=== PATIENT | female | born 1955 | race Caucasian/White ===

== ENCOUNTER 2021-08-27 00:33 | Emergency (ER) | payer OTHER ==
--- NOTE | 2021-08-27 01:09 | ED Physician Documentation ---
History of Present Illness - Stated complaint Stated Complaint: THROAT TIGHTNESS/LIGHTHEADED - Chief complaint Chief Complaint: Heent - History obtained from History obtained from: Patient - Additonal information Additional information: 65-year-old woman presents with throat tightness and dizziness that has been ongoing for several months. She already saw a GI and is slated to see an ENT but was feeling overwhelmed tonight and decided to come to the emergency department. Subjective shortness of breath when swallowing liquids and solids. Patient endorses decreased p.o. intake. Review of Systems Throat: reports: Sore throat Cardiac: denies: Chest pain / pressure Respiratory: reports: Dyspnea. denies: Cough GI: denies: Vomiting PD PAST MEDICAL HISTORY - Past Medical History Past Medical History: Yes GI: GERD, Other HEENT: Glaucoma Musculoskeletal: Osteoarthritis, Other Derm: Other Other Past Medical History: chronic hives. tendonitis - Past Surgical History Past Surgical History: Yes General: EGD HEENT: Detached retina repair - Present Medications Home Medications: Ambulatory Orders Medication Instructions Recorded Confirmed Loratadine [Claritin] 10 mg PO DAILY 08/27/21 08/27/21 Spironolactone [Aldactone] 50 mg PO BID 08/27/21 08/27/21 hydrOXYzine HCL [Hydroxyzine HCl] 25 mg PO Q8H PRN #30 tablet 08/27/21 hydrOXYzine HCL [Hydroxyzine HCl] 50 mg PO DAILY 08/27/21 08/27/21 - Allergies Allergies/Adverse Reactions: Allergies Allergy/AdvReac Type Severity Reaction Status Date / Time Sulfa (Sulfonamide Allergy Unknown Verified 08/27/21 00:45 Antibiotics) - Social History Does the pt smoke?: No Smoking Status: Never smoker Does the pt drink ETOH?: No Does the pt have substance abuse?: No - Immunizations Immunizations are current?: Yes PD ED PE NORMAL - Vitals Vital signs reviewed: Yes - General General: Alert and oriented X 3, No acute distress, Well developed/nourished - HEENT HEENT: Atraumatic, PERRL, EOMI - Neck Neck: Supple, no meningeal sign - Cardiac Cardiac: RRR - Respiratory Respiratory: No respiratory distress, Clear bilaterally Results - Vitals Vitals: Vital Signs - 24 hr 08/27/21 08/27/21 08/27/21 00:45 00:49 02:44 Temperature 36.5 C 36.5 C 36.6 C Heart Rate 93 93 81 Respiratory 16 16 16 Rate Blood Pressure 154/90 H 154/90 H 126/78 O2 Saturation 100 100 99 Oxygen O2 Source Room air - EKG (time done) 0045 Rate: Rate (enter#) (94) Rhythm: NSR [place]: Normal, Other (borderline LAD) Intervals: Normal IN QRS: Normal Ischemia: Normal ST segments PD MEDICAL DECISION MAKING - ED course ED course: 65-year-old woman presents with throat soreness and odynophagia to liquids and solids. Also endorses severe anxiety related to her symptoms. Pain and antianxiety medication provided and return precautions given. Patient asked me to try to move up her ENT appointment and I explained that I am not able to do that but we recommend that she called to see if they have a cancellation. Strict return precautions given. Patient will follow up with her primary doctor. Departure - Departure Disposition: 01 Home, Self Care Clinical Impression: Throat tightness, Odynophagia Condition: Good Instructions: Sore Throat Prescriptions: hydrOXYzine HCL [Hydroxyzine HCl] 25 mg PO Q8H PRN #30 tablet PRN Reason: Anxiety Comments: You were seen in the emergency department for odynophagia (pain with swallowing). Please follow up with ENT and return to the emergency department for any new or worsening symptoms or other concerns. [email or web address], [place] [address] ~27.5 mi Discharge Date/Time: 08/27/21 03:01
[2021-08-27] MEDS ORDERED: oxyCODONE/ACET 5/325 Prepack 4 PO STA (02:23)
[2021-08-27] MEDS ORDERED: hydrOXYzine PAMOATE 25 MG CAPSULE PO STA (02:24)
[2021-08-27] MEDS ORDERED: ONDANSETRON ODT 4 MG Prepack 2 TL PRN (02:35)
[2021-08-27 02:45] VITALS: BP 126/78
== END 2021-08-27 03:01 | disposition home or self-care (01) ==
LOC: ED 00:33
DX: R09.89 Other specified symptoms and signs involving the circulatory and respiratory systems (principal); R13.10 Dysphagia, unspecified; F41.9 Anxiety disorder, unspecified; Z20.822 Contact with and (suspected) exposure to COVID-19
CPT/HCPCS: 87635; 93005; 99283; 99284; A9270

== ENCOUNTER 2021-10-01 18:13 | Emergency (ER) | payer MEDICARE, OTHER ==
[2021-10-01 18:30] VITALS: BP 127/86
[2021-10-01 18:49] LABS: RAPID STREP SCREEN Negative (Negative)
--- NOTE | 2021-10-01 19:13 | ED Physician Documentation ---
PD HPI HEENT - Stated complaint Stated Complaint: NECK PAIN, CHILLS - Chief complaint Chief Complaint: Heent - History obtained from History obtained from: Patient - Additional information Additional information: 65-year-old woman has had trouble with neck pain for the last 5 months. Initially it started feeling like a lump in the anterior neck especially after she ate or drank or swallowed. Over the last few days now has a burning pain in the mouth especially after she eats. She had an upper endoscopy and was diagnosed with a possible hiatal hernia, but no reflux. Subsequently had ENT evaluation with nasolaryngoscopy that was fairly normal per her report and modified barium swallow that was initially negative but formal read pending. She has been on Percocet, but it is not very helpful. She has also tried gabapentin without relief. Review of Systems Constitutional: reports: Weight Loss. 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 HEENT: Glaucoma Psych: None Musculoskeletal: Osteoarthritis, Other Derm: Other - Past Surgical History Past Surgical History: Yes General: EGD HEENT: Detached retina repair - Present Medications Home Medications: Ambulatory Orders Medication Instructions Recorded Confirmed Loratadine [Claritin] 10 mg PO DAILY 08/27/21 08/27/21 Spironolactone [Aldactone] 50 mg PO BID 08/27/21 08/27/21 hydrOXYzine HCL [Hydroxyzine HCl] 25 mg PO Q8H PRN #30 tablet 08/27/21 hydrOXYzine HCL [Hydroxyzine HCl] 50 mg PO DAILY 08/27/21 08/27/21 HYDROcod/ACETAM 5/325 [[place]after 5/325] 1 - 2 tab PO Q6H PRN #15 tablet 10/01/21 - Allergies Allergies/Adverse Reactions: Allergies Allergy/AdvReac Type Severity Reaction Status Date / Time Sulfa (Sulfonamide Allergy Unknown Verified 10/01/21 18:24 Antibiotics) - Social History Does the pt smoke?: No Smoking Status: Never smoker Does the pt drink ETOH?: No Does the pt have substance abuse?: No - Immunizations Immunizations are current?: Yes - POLST Patient has POLST: No PD ED PE NORMAL - Vitals Vital signs reviewed: Yes - General General: Alert and oriented X 3, No acute distress - HEENT HEENT: PERRL, EOMI, Pharynx benign - Neck Neck: Supple, no meningeal sign, No bony TTP, No adenopathy, Thyroid normal - Neuro Neuro: Alert and oriented X 3, Normal speech - Psych Psych: Normal mood, Normal affect Results - Vitals Vitals: Vital Signs - 24 hr 10/01/21 18:24 Temperature 36.5 C Heart Rate 89 Respiratory 16 Rate Blood Pressure 127/86 H O2 Saturation 100 Oxygen O2 Source Room air - Labs Labs: Laboratory Tests 10/01/21 18:30 Group A Strep Rapid Negative PD MEDICAL DECISION MAKING - ED course ED course: 65-year-old woman with neck pain of unclear etiology status post thorough work- up. Offered CT scanning tonight for further evaluation which she declined. She did feel better after Mylanta and hydrocodone. Departure - Departure Disposition: 01 Home, Self Care Clinical Impression: Odynophagia, Throat tightness Condition: Good Record reviewed to determine appropriate education?: Yes Instructions: ED Chronic Pain Management Prescriptions: HYDROcod/ACETAM 5/325 [Shafter 5/325] 1 - 2 tab PO Q6H PRN #15 tablet PRN Reason: Pain Comments: Prescription sent electronically to [facility] in [place]. Return for new or worsening symptoms. Follow-up with your primary care physician, next available appointment to further evaluate. I am prescribing a short course of narcotic pain medication for you. These are potentially dangerous and addictive medications that should be used carefully. These medications may constipate you. Take an gcnx-xhs-yydqtys stool softener (docusate) twice daily with plenty of water while taking these medications. If you go 24 hours without a bowel movement, take [id number] miralax, per package instructions. Do not drink or drive while taking these medications. If you received narcotic or sedating medications while in the emergency department, do not drive for 24 hours. Store this medication in a safe, secure place and out of reach of children. It is a violation of federal law to give or sell this medication to another person or to use in a manner other than prescribed. The ED will not refill narcotic prescriptions, including prescriptions lost or stolen. To dispose of unwanted medications: 1. [facility] at [address] in [place] has a medication drop box. They accept prescription medications (in pill form) Thursday through Thursday 9:00 a.m. to 5:00 p.m. 2. The [facility] [employer] accepts prescription medications (in pill form only) for disposal year round. Call for more information. 3. Contact the [facility] for the next [facility] sponsored prescription drug collection event. , [phone], or [phone]; Note that many narcotic pain relievers also contain Tylenol/acetaminophen. Please ensure that your total dose of acetaminophen from all sources does not exceed 3 g (3000 mg) per day.
[2021-10-01] MEDS: HYDROcod/ACETAM 5/325 MG TABLET PO STA (19:17)
[2021-10-01] MEDS: LIDOCAINE VISCOUS 2% 15 ML UDC MM STA (19:17)
[2021-10-01] MEDS: MAG HYDROX/AL HYDROX/SIMETH 30 ML UDC PO STA (19:17)
[2021-10-01] MEDS: HYDROcod/ACET 5/325 Prepack 4 PO STA (19:43)
== END 2021-10-01 19:54 | disposition home or self-care (01) ==
LOC: ED 18:13
DX: R13.10 Dysphagia, unspecified (principal); M54.2 Cervicalgia; R07.0 Pain in throat
CPT/HCPCS: 87070; 87430; 99283; A9270

== ENCOUNTER 2021-10-05 08:18 | Emergency (ER) | payer MEDICARE ==
[2021-10-05] MEDS ORDERED: MAG HYDROX/AL HYDROX/SIMETH 30 ML UDC PO STA ×2 (08:43→14:07)
[2021-10-05] MEDS ORDERED: LIDOCAINE VISCOUS 2% 15 ML UDC MM STA ×2 (08:43→14:07)
--- NOTE | 2021-10-05 08:46 | ED Physician Documentation ---
History of Present Illness - Stated complaint Stated Complaint: THROAT PX - Chief complaint Chief Complaint: Heent - History obtained from History obtained from: Patient - Additonal information Additional information: 65-year-old woman has been dealing with throat pain presumed related to reflux for last 5 months. It is a burning pain, severe sometimes in the epigastrium but also in the throat and felt like she had a lump in her throat. She is completely at her wits end of by this. Narcotics seem unhelpful. Mylanta is sometimes helpful. It is associated with a greater than 20 pound weight loss. She has had upper endoscopy by both GI and nasolaryngoscopy by ENT which were per her report basically negative. Formal read of a barium swallow is pending but initially negative. Review of Systems Ten Systems: 10 systems reviewed and negative Constitutional: reports: Fatigue, Weight Loss. 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 HEENT: Glaucoma Psych: None Musculoskeletal: Osteoarthritis, Other Derm: Other - Past Surgical History Past Surgical History: Yes General: EGD HEENT: Detached retina repair - Present Medications Home Medications: Ambulatory Orders Medication Instructions Recorded Confirmed Loratadine [Claritin] 10 mg PO DAILY 08/27/21 08/27/21 Spironolactone [Aldactone] 50 mg PO BID 08/27/21 08/27/21 hydrOXYzine HCL [Hydroxyzine HCl] 25 mg PO Q8H PRN #30 tablet 08/27/21 hydrOXYzine HCL [Hydroxyzine HCl] 50 mg PO DAILY 08/27/21 08/27/21 HYDROcod/ACETAM 5/325 [[place] 5/325] 1 - 2 tab PO Q6H PRN #15 tablet 10/01/21 Gi Cocktail 10 ml PO Q6H PRN #300 ml 10/05/21 Sucralfate [Carafate] 1 gm PO ACHS #60 tablet 10/05/21 - Allergies Allergies/Adverse Reactions: Allergies Allergy/AdvReac Type Severity Reaction Status Date / Time Sulfa (Sulfonamide Allergy Unknown Verified 10/05/21 08:32 Antibiotics) - Social History Does the pt smoke?: No Smoking Status: Never smoker Does the pt drink ETOH?: No Does the pt have substance abuse?: No - Immunizations Immunizations are current?: Yes - POLST Patient has POLST: No PD ED PE NORMAL - Vitals Vital signs reviewed: Yes - General General: Alert and oriented X 3, No acute distress, Other (tearful) - HEENT HEENT: PERRL, EOMI, Pharynx benign - Neck Neck: Supple, no meningeal sign, No bony TTP - Cardiac Cardiac: RRR, No murmur - Respiratory Respiratory: No respiratory distress, Clear bilaterally - Abdomen Abdomen: Non tender - Back Back: No CVA TTP, No spinal TTP - Derm Derm: Normal color, Warm and dry - Extremities Extremities: No edema, No calf tenderness / cord - Neuro Neuro: Alert and oriented X 3, Normal speech Results - Vitals Vitals: Vital Signs - 24 hr 10/05/21 10/05/21 08:23 10:10 Temperature 36.8 C 36.5 C Heart Rate 88 76 Respiratory 15 14 Rate Blood Pressure 136/77 H 138/66 H O2 Saturation 99 98 Oxygen O2 Source Room air - Labs Labs: Laboratory Tests 10/05/21 10/05/21 08:59 08:59 WBC 4.2 L RBC 4.21 Hgb 12.3 Hct 37.5 MCV 89.1 MCH 29.2 MCHC 32.8 RDW 13.2 Plt Count 198 MPV 9.8 Neut # (Auto) 2.6 Lymph # (Auto) 1.2 L [place] # (Auto) 0.3 Eos # (Auto) 0.0 Baso # (Auto) 0.0 Absolute Nucleated RBC 0.00 Nucleated RBC % 0.0 Sodium 135 Potassium 3.6 Chloride 98 L Carbon Dioxide 27 Anion Gap 10.0 BUN 7 Creatinine 0.8 Estimated GFR (MDRD) 72 L Glucose 103 H Calcium 9.3 Magnesium 2.2 Total Bilirubin 1.4 H AST 21 ALT 19 Alkaline Phosphatase 39 L Total Protein 7.1 Albumin 4.6 Globulin 2.5 Albumin/Globulin Ratio 1.8 Lipase 29 PD MEDICAL DECISION MAKING - ED course ED course: 65-year-old woman has had difficult to control pain with unclear diagnosis. Could be reflux, but the level of pain is out of proportion to that as a general rule. 65-year-old woman presents with pain that has been difficult to control in the etiology of it poorly elucidated. It certainly sounds most consistent with reflux, but the differential diagnosis also included malignancy. She has had a significant weight loss and is at her wits end about this. Although her outpatient work-up has been fairly complete, given the weight loss and concern for malignancy we did CT scans today which showed only incidental findings of a thyroid nodule, prominent liver cysts. Nothing that would really explain her pain. She did get some relief with a GI cocktail, and after discussion she is at the end of her rope and we will also trial ketamine infusion. After the completion of the ketamine she really did not feel any better. GI cocktail was repeated. We will send prescription for compounded GI cocktail and Carafate to her pharmacy. She asked which narcotic would be better, hydrocodone or oxycodone. I discussed with her that without physical findings and with so many negative work-ups I did not think going forward continue narcotics were appropriate but she can discuss with her GP. Departure - Departure Disposition: Home, Self Care Clinical Impression: Odynophagia, Throat tightness Condition: Good Record reviewed to determine appropriate education?: Yes Instructions: ED Chronic Pain Management, ED Acute Pain [facility] Prescriptions: Sucralfate [Carafate] 1 gm PO ACHS #60 tablet Gi Cocktail 10 ml PO Q6H PRN #300 ml PRN Reason: Pain Comments: As discussed, CT imaging did show a thyroid nodule, your primary care physician needs to order an ultrasound on this, but there is no cerda as the nodule is only 1.8 cm which is fairly small. Return for new or worsening symptoms. Follow-up with your GP and gastroenterology as discussed.
[2021-10-05 09:03] LABS: BASOPHILS % (AUTO) 0.5 %; EOSINOPHILS % (AUTO) 0.5 %; HCT - HEMATOCRIT 37.5 % (37.0-47.0); HGB - HEMOGLOBIN 12.3 g/dL (12.0-16.0); LYMPHOCYTES # (AUTO) 1.2 10^3/uL (1.5-3.5); LYMPHOCYTES % (AUTO) 29.1 %; MEAN CORPUSCULAR HEMOGLOBIN 29.2 pg (27.0-31.0); MEAN CORPUSCULAR HGB CONC 32.8 g/dL (32.0-36.0); MEAN CORPUSCULAR VOLUME 89.1 fL (81.0-99.0); MEAN PLATELET VOLUME 9.8 fL (7.9-10.8); MONOCYTES # (AUTO) 0.3 10^3/uL (0.0-1.0); MONOCYTES % (AUTO) 7.7 %; NEUTROPHILS # (AUTO) 2.6 10^3/uL (1.5-6.6); PLT - PLATELET COUNT 198 10^3/uL (130-450); RED BLOOD COUNT 4.21 10^6/uL (4.20-5.40); RED CELL DISTRIBUTION WIDTH 13.2 % (12.0-15.0); WHITE BLOOD COUNT 4.2 x10^3/uL (4.8-10.8)
[2021-10-05 09:17] LABS: ALBUMIN 4.6 g/dL (3.2-5.5); ALBUMIN/GLOBULIN RATIO 1.8 (1.0-2.2); BILIRUBIN,TOTAL 1.4 mg/dL (0.2-1.0); CALCIUM 9.3 mg/dL (8.5-10.3); CREATININE 0.8 mg/dL (0.4-1.0); MAGNESIUM 2.2 mg/dL (1.7-2.8); POTASSIUM 3.6 mmol/L (3.5-5.0); TOTAL PROTEIN 7.1 g/dL (6.7-8.2)
[2021-10-05] MEDS ORDERED: IOVERSOL 320 100 ML VIAL IVP ONE ×2 (09:28→11:54)
[2021-10-05] MEDS ORDERED: ONDANSETRON 4 MG/2 ML VIAL IVP STA (10:32)
--- NOTE | 2021-10-05 11:34 | CT Report ---
PROCEDURE: SOFT TISSUE NECK W INDICATIONS: neck/chest/abd pain CONTRAST: IV CONTRAST: Optiray 320 ml: 100 PO CONTRAST: *NO PO CONTRAST TECHNIQUE: After the administration of intravenous contrast, 3.0 mm axial sections acquired from the sella to th e aortic arch. Additional oblique axial 3.0 mm sections acquired through the pharynx. 3 mm thick co darrian reformats were generated. For radiation dose reduction, the following was used: automated exp osure control, adjustment of mA and/or kV according to patient size. COMPARISON: Correlation is made with the accompanying CT examinations, 10/05/2021. FINDINGS: Image quality: Excellent. Lymph nodes: No enlarged lymph nodes seen throughout the neck. Vessels: Visualized vasculature appears patent. Neck spaces: The oropharynx, nasopharynx, and pharynx demonstrate no mucosal lesions. The vocal cor ds, false vocal cords, pyriform sinuses, epiglottis, vallecula, and tongue base all appear normal. E xtramucosal spaces appear unremarkable. Glands: The parotid and submandibular glands appear normal. There is a 1.8 cm left thyroid nodule s een. Miscellaneous: Visualized brain and orbits appear normal. Lung apices appear clear. Superficial so ft tissues appear normal. Bones: No suspicious bony lesions. Visualized sinuses and mastoids appear unremarkable. There is r eversal of the normal cervical lordosis, with the apex at the C5 level. There is minimal anterolisth esis seen at the C4-C5 level and minimal retrolisthesis seen at C5-C6. There is moderate disc space n arrowing seen at C5-C6 and C6-C7, with endplate irregularity and sclerosis seen, which is worst at C5 -C6. Posteriorly directed endplate osteophytes are seen at C5-C6. Focal degenerative change can also be seen involving the C1-C2 interface anteriorly. Milder degenerative changes are seen elsewhere. IMPRESSION: No mucosal masses are seen. No enlarged lymph nodes are seen. 1.8 cm left thyroid nodule noted. When clinically appropriate, please consider a dedicated follow-up thyroid ultrasound for further evaluation. Moderate to prominent lower cervical spine degenerative changes are seen. Reversal of the normal cervical lordosis is seen. This is commonly observed in patients with muscular spasm. Reviewed by: Bryce Prajapati MD on 10/05/2021 10:33 AM [place] Approved by: Bryce Prajapati MD on 10/05/2021 10:33 AM [facility] Station ID: [id number]
--- NOTE | 2021-10-05 11:38 | CT Report ---
PROCEDURE: CHEST W INDICATIONS: neck/chest/abd pain CONTRAST: IV CONTRAST: Optiray 320 ml: 100 PO CONTRAST: *NO PO CONTRAST TECHNIQUE: After the administration of intravenous contrast, 1 mm axial images were acquired from the pulmonary apices through the posterior costophrenic angles. Axial 5 mm soft tissue kernel reconstructions were performed as well as 8 mm axial MIP and coronal and sagittal 5 mm reformations. For radiation dose reduction, the following was used: automated exposure control, adjustment of mA and/or kV according to patient size. COMPARISON: Correlation is made with the accompanying CT examinations, 10/05/2021. FINDINGS: Image quality: Excellent. Lungs and pleura: No acute air space opacities. No pleural effusions or pneumothorax. Central and peripheral airways are patent and normal in caliber. Mediastinum: Heart size is normal. Mild to moderate coronary artery calcification can be seen. No p ericardial effusion. No mediastinal or hilar adenopathy by size criteria. Thoracic aorta and centra l pulmonary arteries are normal in size. Esophagus is normal in caliber. No hiatal hernia. Bones and chest wall: No suspicious bony lesions. Focal C5-C6 degenerative change is seen, with mode rate disc space narrowing with endplate irregularity and sclerosis. There is a remote appearing anter ior wedge deformity seen involving the superior endplate of T12, with 20-30% loss of height anteriorl y. No acute features are seen. No acute fractures are seen. Mild dextroconvex scoliotic curvature is seen. No axillary or supraclavicular adenopathy by size criteria. At the inferior pole of the left thyroid, there is a 1.7 cm nodule seen.. Abdomen: Numerous prominent simple appearing liver cysts are seen. Visualized upper abdominal solid organs appear normal. Upper abdominal bowel loops are normal in caliber. IMPRESSION: No acute chest CT abnormality is seen. 1.7 cm left thyroid nodule seen. When clinically appropriate, please consider a dedicated thyroid ult rasound follow-up. Incidental note is made of: Mild to moderate coronary artery calcification. Dextroconvex scoliotic curvature Focal T5-T6 degenerative change Remote T12 anterior wedge deformity. Prominent simple appearing liver cysts Reviewed by: Bryce Prajapati MD on 10/05/2021 10:37 AM [place] Approved by: Bryce Prajapati MD on 10/05/2021 10:37 AM [place] Station ID: [id number]
--- NOTE | 2021-10-05 11:43 | CT Report ---
PROCEDURE: Abdomen/Pelvis W INDICATIONS: neck/chest/abd pain CONTRAST: IV CONTRAST: Optiray 320 ml: 100 PO CONTRAST: *NO PO CONTRAST TECHNIQUE: After the administration of IV and oral contrast, 5 mm thick sections acquired from the diaphragms to the symphysis. 5 mm thick coronal and sagittal reformats were acquired. For radiation dose reducti on, the following was used: automated exposure control, adjustment of mA and/or kV according to brice ent size. COMPARISON: Correlation is made with the accompanying CT examinations, 10/05/2021. FINDINGS: Image quality: Excellent. ABDOMEN: Lung bases: Lung bases are clear. Heart size is normal. Solid organs: Numerous water density liver cysts are seen, including a cyst on the left measuring 11 .5 cm and a cyst on the right measuring 7.4 cm. Gallbladder wall does not appear thickened. Biliary system is non dilated. Pancreas enhances norm ally. No significant splenic abnormality is seen. No adrenal nodules. Kidneys demonstrate normal siz e and enhancement, without hydronephrosis. Peritoneum and bowel: Bowel loops demonstrate normal wall thickness and caliber. No free fluid or a ir. A normal appendix is seen, which partially fills with oral contrast. Nodes and vessels: No retroperitoneal or mesenteric adenopathy by size criteria. Aorta and inferior vena cava are normal in size. Miscellaneous: No ventral hernias. PELVIS: Genitourinary: Bladder wall thickness is normal. An atrophic uterus is seen, which is normal for ag e. No adnexal masses are seen on either side. Miscellaneous: No inguinal hernias or adenopathy. Bones: No suspicious bony lesions. No acute vertebral body compression fractures. There is a T12 a nterior wedge deformity seen, with 20-30% loss of height anteriorly. Moderate dextro convex scoliosis is seen. Degenerative changes are seen throughout, which are worst at L2-L3 and L3-L4. IMPRESSION: A cause of acute pain is not identified. There is no small bowel obstruction. Normal appendix. Incidental note is made of: Numerous simple appearing liver cysts T12 anterior wedge deformity Moderate dextroconvex scoliosis Focal lumbar spine degenerative change Reviewed by: Bryce Prajapati MD on 10/05/2021 10:[address] [facility] Approved by: Bryce Prajapati MD on 10/05/2021 10:[address] [facility] Station ID: [id number]
[2021-10-05] MEDS ORDERED: KETAMINE 30 MG in SODIUM CHLORIDE 0.9% 100ML 100 ML IV STA (11:52)
[2021-10-05 14:08] VITALS: BP 130/70
== END 2021-10-05 14:37 | disposition home or self-care (01) ==
LOC: ED 08:18
DX: R13.10 Dysphagia, unspecified (principal); R07.0 Pain in throat; R63.4 Abnormal weight loss; K21.9 Gastro-esophageal reflux disease without esophagitis; E04.1 Nontoxic single thyroid nodule; K76.89 Other specified diseases of liver
CPT/HCPCS: 36415; 70491; 71260; 74177; 80053; 83690; 83735; 85025; 96365; 96375; 99283; 99284; A9270; Q9967

== ENCOUNTER 2021-10-28 11:24 | Outpatient (CLI) | payer MEDICARE | END 2021-10-28 11:25 | disposition home or self-care (01) | LOC: NS 11:24 | PROVIDERS: ATTEND Specialist | DX: R63.4 Abnormal weight loss (principal); R63.0 Anorexia; Z71.3 Dietary counseling and surveillance; Z68.1 Body mass index [BMI] 19.9 or less, adult; Z71.89 Other specified counseling | CPT/HCPCS: 97802 ==

== ENCOUNTER 2021-10-30 09:16 | Inpatient (IN) | payer MEDICARE ==
[2021-10-30 11:15] LABS: BASOPHILS % (AUTO) 0.3 %; EOSINOPHILS % (AUTO) 0.3 %; HCT - HEMATOCRIT 38.1 % (37.0-47.0); HGB - HEMOGLOBIN 12.6 g/dL (12.0-16.0); LYMPHOCYTES # (AUTO) 0.9 10^3/uL (1.5-3.5); LYMPHOCYTES % (AUTO) 25.5 %; MEAN CORPUSCULAR HEMOGLOBIN 29.2 pg (27.0-31.0); MEAN CORPUSCULAR HGB CONC 33.1 g/dL (32.0-36.0); MEAN CORPUSCULAR VOLUME 88.2 fL (81.0-99.0); MEAN PLATELET VOLUME 9.8 fL (7.9-10.8); MONOCYTES # (AUTO) 0.3 10^3/uL (0.0-1.0); MONOCYTES % (AUTO) 7.6 %; NEUTROPHILS # (AUTO) 2.4 10^3/uL (1.5-6.6); NEUTROPHILS % (AUTO) 66.3 %; PLT - PLATELET COUNT 226 10^3/uL (130-450); RED BLOOD COUNT 4.32 10^6/uL (4.20-5.40); RED CELL DISTRIBUTION WIDTH 14.6 % (12.0-15.0); WHITE BLOOD COUNT 3.7 x10^3/uL (4.8-10.8)
[2021-10-30 11:28] LABS: ALBUMIN 4.5 g/dL (3.2-5.5); ALBUMIN/GLOBULIN RATIO 1.9 (1.0-2.2); BILIRUBIN,TOTAL 0.9 mg/dL (0.2-1.0); CALCIUM 9.4 mg/dL (8.5-10.3); CREATININE 0.8 mg/dL (0.4-1.0); POTASSIUM 3.2 mmol/L (3.5-5.0); TOTAL PROTEIN 6.9 g/dL (6.7-8.2)
[2021-10-30] MEDS ORDERED: SODIUM CHLORIDE 0.9% 1,000 ML IV STA (11:49)
--- NOTE | 2021-10-30 12:34 | ED Physician Documentation ---
History of Present Illness - Stated complaint Stated Complaint: ABDOMINAL PX - Chief complaint Chief Complaint: Abd Pain - History obtained from History obtained from: Patient - History of Present Illness Timing: Other (6 months) - Additonal information Additional information: 66-year-old female who over the past 6 months has developed increasing reflux symptoms. Symptoms are so frequent symptoms that she has a lot of pain in her right tonsillar area and she is having difficulty swallowing not just because of the pain but because of everything that she swallows seems to come back up. She has lost 40 pounds in the past 3 months. She is been in to see the ENT, and GI doctor. She has been in to see the educational sign language interpreter. Matrix Repairer is asked to have the patient placed on TPN while work-up continues. She has had upper GI series she has had CT scan of the abdomen pelvis and chest. She does have simple liver cyst. ([place]) And despite attempt with propulsive agents she has not had improvement in her stomach emptying. She has gone in to see the educational sign language interpreter who has recommended admission for TPN. The patient presents to the emergency department feeling weak and frail with persistent pain in her throat. Review of Systems Constitutional: denies: Fever Eyes: denies: Decreased vision Ears: denies: Ear pain Nose: denies: Congestion Throat: reports: Sore throat Cardiac: reports: Chest pain / pressure. denies: Palpitations Respiratory: denies: Dyspnea, Cough GI: reports: Abdominal Pain, Nausea, Vomiting : denies: Dysuria Musculoskeletal: denies: Neck pain, Back pain, Extremity pain Neurologic: reports: Generalized weakness. 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 : None HEENT: Glaucoma Psych: None Musculoskeletal: Osteoarthritis, Other Derm: Other - Past Surgical History Past Surgical History: Yes General: EGD HEENT: Detached retina repair - Present Medications Home Medications: Ambulatory Orders Medication Instructions Recorded Confirmed Loratadine [Claritin] 10 mg PO DAILY 08/27/21 08/27/21 Spironolactone [Aldactone] 50 mg PO BID 08/27/21 08/27/21 hydrOXYzine HCL [Hydroxyzine HCl] 25 mg PO Q8H PRN #30 tablet 08/27/21 hydrOXYzine HCL [Hydroxyzine HCl] 50 mg PO DAILY 08/27/21 08/27/21 HYDROcod/ACETAM 5/325 [[place] 5/325] 1 - 2 tab PO Q6H PRN #15 tablet 10/01/21 Gi Cocktail 10 ml PO Q6H PRN #300 ml 10/05/21 Sucralfate [Carafate] 1 gm PO ACHS #60 tablet 10/05/21 - Allergies Allergies/Adverse Reactions: Allergies Allergy/AdvReac Type Severity Reaction Status Date / Time minocycline Allergy Unknown Verified 10/30/21 09:21 Sulfa (Sulfonamide Allergy Unknown Verified 10/30/21 09:21 Antibiotics) - Social History Does the pt smoke?: No Smoking Status: Never smoker Does the pt drink ETOH?: No Does the pt have substance abuse?: No - Immunizations Immunizations are current?: Yes - POLST Patient has POLST: No PD ED PE NORMAL - Vitals Vital signs reviewed: Yes (hypertensive ) - General General: Alert and oriented X 3, Well developed/nourished, Other (thin 66 y/o female with a furrowed brow) - HEENT HEENT: Atraumatic, PERRL, EOMI, Other (There is tenderness and inflammation to the left tonsillar bed without tonsillar tissue present. ) - Neck Neck: Supple, no meningeal sign, No bony TTP - Cardiac Cardiac: RRR, No murmur - Respiratory Respiratory: No respiratory distress, Clear bilaterally - Abdomen Abdomen: Normal bowel sounds, Soft, Other (mild epigastric tendeness without garding. ) - Back Back: No CVA TTP, No spinal TTP - Derm Derm: Normal color, Warm and dry, No rash - Extremities Extremities: No deformity, No edema - Neuro Neuro: Alert and oriented X 3, production hand 2-12 intact, No motor deficit, No sensory deficit, Normal speech Eye Opening: Spontaneous Motor: Obeys Commands Verbal: Oriented GCS Score: 15 - Psych Psych: Normal mood, Normal affect Results - Vitals Vitals: Vital Signs - 24 hr 10/30/21 10/30/21 10/30/21 09:21 11:12 13:52 Temperature 36.5 C Heart Rate 90 77 70 Respiratory 18 20 20 Rate Blood Pressure 120/86 H 122/83 H 124/84 H O2 Saturation 97 99 100 10/30/21 10/30/21 15:32 17:40 Temperature Heart Rate 72 71 Respiratory 20 16 Rate Blood Pressure 134/82 H 100/38 L O2 Saturation 99 99 Oxygen O2 Source Room air - Labs Labs: Laboratory Tests 10/30/21 10/30/21 10/30/21 11:10 11:10 14:49 WBC 3.7 L RBC 4.32 Hgb 12.6 Hct 38.1 MCV 88.2 MCH 29.2 MCHC 33.1 RDW 14.6 Plt Count 226 MPV 9.8 Neut # (Auto) 2.4 Lymph # (Auto) 0.9 L [place] # (Auto) 0.3 Eos # (Auto) 0.0 Baso # (Auto) 0.0 Absolute Nucleated RBC 0.00 Nucleated RBC % 0.0 Sodium 142 Potassium 3.2 L Chloride 101 Carbon Dioxide 26 Anion Gap 15.0 H BUN 10 Creatinine 0.8 Estimated GFR (MDRD) 72 L Glucose 103 H Calcium 9.4 Total Bilirubin 0.9 AST 23 ALT 20 Alkaline Phosphatase 28 L Total Protein 6.9 Albumin 4.5 Globulin 2.4 Albumin/Globulin Ratio 1.9 Lipase 49 Urine Color YELLOW Urine Clarity HAZY Urine pH 6.5 Ur Specific [place] 1.020 Urine Protein NEGATIVE Urine Glucose (UA) NEGATIVE Urine Ketones 15 H Urine Occult Blood NEGATIVE Urine Nitrite POSITIVE H Urine Bilirubin NEGATIVE Urine Urobilinogen 2 H Ur Leukocyte Esterase NEGATIVE Urine RBC 0-5 Urine WBC 4-5 Ur Squamous Epith Cells FEW Squamous Urine Bacteria Many H Urine Mucus Few Strands Ur Microscopic Review INDICATED Urine Culture Comments INDICATED Procedures - IVC sono (time) 1130 Bedside IVC sono: IVC measures (cm), IVC collapsed c insp (cm) (complete), Dehydration (est 2+ liter deficit) PD MEDICAL DECISION MAKING - ED course Complexity details: reviewed old records, reviewed results, re-evaluated patient, considered differential, d/w patient ED course: 66-year-old female with a 6-month history of abdominal pain and reflux symptoms has worsening of her symptoms as time is gone on and she has now lost 40 pounds in the last 3 months. She has been in to see ENT, GI and the educational sign language interpreter. The educational sign language interpreter has now recommended she have an IV placed for parenteral nutrition. The patient has had upper GI study she has had endoscopy and she has had CT scan of her chest abdomen and neck done here at [facility] by Dr. Lindo. Here in the emergency department I went to interrogate her inferior vena cava with bedside ultrasound and found a gigantic mass of fluid directly beneath the probe and compressing the inferior vena cava and structures beneath it. I reviewed the patient's CT scan from her prior visit 3 weeks ago and at that time she had a simple hepatic cyst measuring 12 x 10 cm. I suspect that this cyst is the cause of her reflux symptoms and inability to get food to digest. It looks like it mechanically traps the duodenum between the cyst itself and the aorta. The patient was found to be dehydrated on interrogation the inferior vena cava and she was administered intravenous saline and I have talked to her hospitalist about the possibility of placing a PICC line for TPN. Beds are not available in the hospital today and we are anticipating potential discharge this afternoon. I have attempted to consult her GI doctor she is to see in follow up. I was able to contact the on-call platform worker in [place] Dr. Chaidez who will relay information with the assumption that we will need general surgery to address the draining of the hepatic cyst. Today we are anticipating placement of the patient into the hospital for the purpose placement of a PICC line and administration of TPN. At shift change we are still awaiting a bed and care is turned over to Dr. Whitney. The patient reports improvement with ativan and a GI cocktail with lido/mylanta and carafate. Departure - Departure Clinical Impression: Hepatic cyst, Partial gastric outlet obstruction Condition: Stable
[2021-10-30 15:02] LABS: BILIRUBIN,URINE NEGATIVE (NEGATIVE); GLUCOSE, URINE (UA) NEGATIVE (NEGATIVE); KETONES,URINE (UA) 15 mg/dL (NEGATIVE); LEUKOCYTE ESTERASE, URINE NEGATIVE (NEGATIVE); NITRITE,URINE POSITIVE (NEGATIVE); OCCULT BLOOD,URINE NEGATIVE (NEGATIVE); PH,URINE 6.5 PH (5.0-7.5); PROTEIN,URINE NEGATIVE (NEGATIVE); UROBILINOGEN,URINE 2 E.U./dL (NORMAL)
[2021-10-30 15:13] LABS: CLARITY,URINE HAZY (CLEAR)
[2021-10-30 15:24] LABS: BACTERIA,URINE Many /HPF (None Seen); MUCUS,URINE Few Strands; RBC,URINE 0-5 /HPF (0-5); SQUAMOUS EPITHELIAL CELL,UR FEW Squamous (<= Few)
[2021-10-30] MEDS ORDERED: LORazepam 2 MG/ML VIAL IVP STA (16:26)
[2021-10-30] MEDS ORDERED: SUCRALFATE 1 GM/10 ML UDC PO STA (16:26)
[2021-10-30] MEDS ORDERED: LIDOCAINE VISCOUS 2% 15 ML UDC MM STA (16:26)
[2021-10-30] MEDS ORDERED: MAG HYDROX/AL HYDROX/SIMETH 30 ML UDC PO STA (16:26)
[2021-10-30] MEDS ORDERED: D5.45NS W/20 MEQ KCL 1,000 ML IV STA (18:34)
[2021-10-30] MEDS ORDERED: ONDANSETRON 4 MG/2 ML VIAL IVP PRN (20:36)
[2021-10-30] MEDS ORDERED: GI COCKTAIL PO PRN (20:39)
[2021-10-30] MEDS ORDERED: ACETAMINOPHEN 1,000 MG/100 ML 100 ML IV PRN (20:45)
[2021-10-30] MEDS ORDERED: LORATADINE 10 MG TABLET PO PRN (20:47)
--- NOTE | 2021-10-30 20:49 | HISTORY & PHYSICAL EXAMINATION ---
Chief Complaint - Chief Complaint Chief Complaint: GERD, painful swallowing History of Present Illness - Admitted From Admitted From:: ED - History Obtained From History obtained from: ED provider and the patient - History of Present Illness HPI Comment/Other: This is a 66-year-old white female who is a , lives alone, has a history of adult acne (for which she took spironolactone in order to decrease testosterone and drain acne lesions, stopped taking this 3 weeks ag0), and she takes hydroxyzine for N/V and anxiety. Over the past 6 months she has developed progressively worsening and unrelenting painful swallowing, acid reflux symptoms, feeling like a lump in her throat and inability to eat solid foods, abdominal pain, minimal nausea and vomiting and weight loss of 40 pounds over 6 months. She has had ENT evaluation and EGD. She has been treated with GI cock tail, Protonix, sucralfate and pain medications. Finally, recent imaging showed that she has a massive liver cyst measuring 10 x 12 cm which is pushing on her stomach and obstructing it's outflow. She has been seen by business analysis consultant for assistance in adjusting her diet and finally physics technical officer has advised TPN for nutrition. The patient presented to the ED today for severe GERD symptoms, overall weakness, feeling lightheaded when she walks (needing to hold onto a wall) and the continued symptoms of acid reflux, painful swallowing and malnutrition/weight loss. Evaluation showed that the liver cyst is compressing the duodenum and distal stomach causing obstruction and that her IVC is unde rfilled and she is dehydrated and U/A shows ketones probably from starvation ketosis. Patient is being admitted to the Hospitalist team to manage her dehydration, malnutrition, inserting a PICC line and starting TPN, and also to determine where best to have the large liver cyst drained and managed. We discussed her CODE BLUE wishes and she wants to be a DNR. 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 She used to drink alcohol socially but stopped and coffee this 4 months ago because of the severe GI symptoms. She is a , her very slowly and painfully of lung cancer she stated. - Substance History Use: Uses substance without health or social issues: NONE - POLST Patient has POLST: No POLST Status: DNR Meds/Allgy - Home Medications Home Medications: Ambulatory Orders Medication Instructions Recorded Confirmed Loratadine [Claritin] 10 mg PO DAILY 08/27/21 08/27/21 Spironolactone [Aldactone] 50 mg PO BID 08/27/21 08/27/21 hydrOXYzine HCL [Hydroxyzine HCl] 25 mg PO Q8H PRN #30 tablet 08/27/21 hydrOXYzine HCL [Hydroxyzine HCl] 50 mg PO DAILY 08/27/21 08/27/21 HYDROcod/ACETAM 5/325 [[place] 5/325] 1 - 2 tab PO Q6H PRN #15 tablet 10/01/21 Gi Cocktail 10 ml PO Q6H PRN #300 ml 10/05/21 Sucralfate [Carafate] 1 gm PO ACHS #60 tablet 10/05/21 - Allergies Allergies/Adverse Reactions: Allergies Allergy/AdvReac Type Severity Reaction Status Date / Time minocycline Allergy Unknown Verified 10/30/21 09:21 Sulfa (Sulfonamide Allergy Unknown Verified 10/30/21 09:21 Antibiotics) Review of Systems - Constitutional Constitutional: reports: Fatigue, Weakness, Poor appetite, Weight loss - Gastrointestinal Gastrointestinal: reports: Abdominal pain, Change in bowel habits (Has very few solid bowel movements because she has not eaten solid food in 4 to 6 months.), Nausea, Reflux/heartburn, Poor appetite, Other (Pain when swallowing) - All Other Systems All Other Systems: reports: Reviewed and negative Exam - Vital Signs Vital Signs: Vital Signs x48h Pulse Resp BP Pulse Ox 10/30/21 17:40 71 16 100/38 L 99 10/30/21 15:32 72 20 134/82 H 99 10/30/21 13:52 70 20 124/84 H 100 - Physical Exam General Appearance: positive: No acute distress, Alert, Other (Thin white female, appears tired and weak.) Eyes Bilateral: positive: Normal inspection, EOMI ENT: positive: ENT inspection nml, Dry mucous membranes Neck: positive: Nml inspection, No JVD Respiratory: positive: No respiratory distress, Breath sounds nml Cardiovascular: positive: Regular rate & rhythm, No murmur Abdomen: positive: Non-tender, No distention Skin: positive: Warm, Dry Extremities: positive: Non-tender, No pedal edema Neurologic/Psychiatric: positive: Oriented x3, Motor nml Conclusion/Plan - Problem List (1) Partial gastric outlet obstruction Conclusion/Plan: This is from the large liver cyst and it is obstructing gastric outflow and causing her symptoms of odynophagia, severe acid reflux, feeling of a lump in her throat, inability to eat a normal diet and ultimately the weight loss. Will order only a clear liquid diet. We will request Nutrition consult. Will plan PICC line insertion and start TPN, as was already discussed with the patient by her physics technical officer pension consultant. Will watch for overfeeding syndrome. Will also give IV fluids while awaiting the tpn. Follow electrolytes, phosphate and magnesium daily. (2) Hepatic cyst Conclusion/Plan: This needs to be drained or removed and further management. Will request a general surgery consult for recommendations. (3) GERD (gastroesophageal reflux disease) Conclusion/Plan: She has been tried on GI cocktail, Protonix and Sucralfate. We will give IV Protonix in order to decrease the amount of pills entering her stomach which does not drain. Will give GI cocktail as needed. Will give pain meds in iv form as needed (4) Dehydration Conclusion/Plan: She has dry oral mucosa and her urinalysis shows positive ketones consistent with dehydration and fasting/malnutrition. Will start IV fluids until the PICC line and TPN are started. (5) Hypokalemia Conclusion/Plan: Related to inadequate intake. We will give potassium in her IV fluids. Follow BMP daily. - Lab Results Fish Bones: 10/30/21 11:10 10/30/21 11:10 - Diagnostic Imaging Results Diagnostic Imaging Results: positive: Final report reviewed - Other Other Results/Comments: Attestation: The patient is expected to be discharged or transferred to another facility within 96 hours: Yes.
[2021-10-30] MEDS ORDERED: PANTOPRAZOLE 40 MG VIAL IV SCH (21:00)
[2021-10-30] MEDS ORDERED: HYDROXYZINE HCL 50 MG PO SCH (21:00)
[2021-10-30] MEDS ORDERED: D5NS W/20 MEQ KCL 1,000 ML IV SCH (21:00)
[2021-10-30] MEDS: D5.45NS W/20 MEQ KCL 1,000 ML IV SCH (22:19)
[2021-10-30 22:29] LABS: B. PARAPERTUSSIS- RESP PCR PAN NOT DETECTED; B. PERTUSSIS- RESP PCR PANEL NOT DETECTED; C. PNEUMONIAE- RESP PCR PANEL NOT DETECTED; CORONAVIRUS 229E-RESP PCR NOT DETECTED; CORONAVIRUS HKU1-RESP PCR NOT DETECTED; CORONAVIRUS NL63-RESP PCR NOT DETECTED; CORONAVIRUS OC43-RESP PCR NOT DETECTED; HUMAN METAPNEUMOVIRUS NOT DETECTED; INFLUENZA A- RESP PCR PANEL NOT DETECTED; INFLUENZA B - RESP PCR PANEL NOT DETECTED; M. PNEUMONIAE- RESP PCR PANEL NOT DETECTED; PARAINFLUENZA VIRUS 1 NOT DETECTED; PARAINFLUENZA VIRUS 2 NOT DETECTED; PARAINFLUENZA VIRUS 3 NOT DETECTED; PARAINFLUENZA VIRUS 4 NOT DETECTED; RHINOVIRUS/ENTEROVIRUS NOT DETECTED; RSV- RESP PCR PANEL NOT DETECTED; SARS-CoV-2 -RESP PCR PANEL NOT DETECTED
[2021-10-31] MEDS: ZOLPIDEM 5 MG TABLET PO PRN ×2 (00:07→21:25)
[2021-10-31] MEDS: SODIUM CHLORIDE FLUSH 0.9% 10 ML SYRINGE IVP SCH ×3 (00:44→15:48)
[2021-10-31] MEDS: D5.45NS W/20 MEQ KCL 1,000 ML IV SCH (04:51)
[2021-10-31 06:26] LABS: BASOPHILS % (AUTO) 0.3 %; EOSINOPHILS % (AUTO) 1.2 %; HCT - HEMATOCRIT 36.1 % (37.0-47.0); HGB - HEMOGLOBIN 11.9 g/dL (12.0-16.0); LYMPHOCYTES % (AUTO) 31.5 %; MEAN CORPUSCULAR HEMOGLOBIN 29.2 pg (27.0-31.0); MEAN CORPUSCULAR VOLUME 88.7 fL (81.0-99.0); MEAN PLATELET VOLUME 10.2 fL (7.9-10.8); MONOCYTES # (AUTO) 0.3 10^3/uL (0.0-1.0); MONOCYTES % (AUTO) 8.5 %; NEUTROPHILS # (AUTO) 1.9 10^3/uL (1.5-6.6); NEUTROPHILS % (AUTO) 58.5 %; PLT - PLATELET COUNT 207 10^3/uL (130-450); RED BLOOD COUNT 4.07 10^6/uL (4.20-5.40); RED CELL DISTRIBUTION WIDTH 14.7 % (12.0-15.0); WHITE BLOOD COUNT 3.3 x10^3/uL (4.8-10.8)
[2021-10-31 06:36] LABS: CALCIUM 8.4 mg/dL (8.5-10.3); CREATININE 0.7 mg/dL (0.4-1.0); PHOSPHORUS 3.2 mg/dL (2.5-4.6)
--- NOTE | 2021-10-31 07:30 | PROVIDER PROGRESS NOTE ---
Subjective - Prog Note Date Prog Note Date: 10/31/21 - Subjective Subjective: She reports feeling much better today compared to yesterday. She is happy that she is able to start TPN here and is happy to hear that you may have identified the cause of her nausea/vomiting. She denies any pain at this time but still does occasionally feel nauseous and reports heartburn. Current Medications - Current Medications Current Medications: Active Medications Acetaminophen (Acetaminophen 325 Mg Tablet) 650 mg PO Q4HR PRN PRN Reason: Pain or Fever > 38C (100.4F) Al Hydroxide/Mg Hydroxide (Mag Hydrox/Al Hydrox/Simeth 30 Ml Udc) 30 ml PO Q4HR PRN PRN Reason: INDIGESTION Hydroxyzine Pamoate (Hydroxyzine Pamoate 25 Mg Capsule) 50 mg PO QPM [facility] Potassium Chloride/Dextrose/Sod Cl (D5.45ns W/20 Meq Kcl) 1,000 mls @ 125 mls/hr IV .Q8H [facility] Last Admin: 10/31/21 04:51 Dose: 125 mls/hr Documented by: Potassium Chloride (Potassium Chloride) 10 meq in 100 mls @ 100 mls/hr IV Q1H [facility] Stop: 10/31/21 12:59 Loratadine (Loratadine 10 Mg Tablet) 10 mg PO DAILY PRN PRN Reason: Allergy Symptoms Multi-Ingredient Mouthwash/Gargle (Gi Cocktail 120 Ml Bottle) 10 ml PO Q6H PRN PRN Reason: PAIN Ondansetron HCl (Ondansetron 4 Mg/2 Ml Vial) 4 mg IVP Q6HR PRN PRN Reason: Nausea / Vomiting Pantoprazole Sodium (Pantoprazole 40 Mg Tablet) 40 mg PO QDAC [facility] Last Admin: 10/31/21 08:06 Dose: 40 mg Documented by: Sodium Chloride (Sodium Chloride Flush 0.9% 10 Ml Syringe) 10 ml IVP PRN PRN PRN Reason: NEEDED PER PROVIDER ORDERS Sodium Chloride (Sodium Chloride Flush 0.9% 10 Ml Syringe) 10 ml IVP 0100,0900,1700 [facility] Last Admin: 10/31/21 00:44 Dose: Not Given Documented by: Sucralfate (Sucralfate 1 Gm/10 Ml Udc) 1 gm PO 0700,1100,1600,2200 [facility] Zolpidem Tartrate (Zolpidem 5 Mg Tablet) 10 mg PO QPM PRN PRN Reason: Insomnia Last Admin: 10/31/21 00:07 Dose: 10 mg Documented by: Loratadine [Claritin] 10 mg PO DAILY 08/27/21 Spironolactone [Aldactone] 50 mg PO BID 08/27/21 hydrOXYzine HCL [Hydroxyzine HCl] 50 mg PO DAILY 08/27/21 Objective - Vital Signs/Intake & Output Reviewed Vital Signs: Yes Vital Signs: Vital Signs x48h Temp Pulse Resp BP Pulse Ox 10/31/21 00:46 36.4 C L 64 16 108/77 100 Intake & Output: Intake & Output 10/28/21 10/29/21 10/30/21 10/31/21 23:59 23:59 23:59 23:59 Intake Total 1000 1116.667 Balance 1000 1116.667 - Objective General Appearance: positive: No acute distress, Alert Eyes Bilateral: positive: Normal inspection, Conjunctivae nml ENT: positive: ENT inspection nml Neck: positive: Nml inspection Respiratory: positive: No respiratory distress. negative: Wheezes, Rales Cardiovascular: positive: Regular rate & rhythm, No murmur. negative: Tachycardia Abdomen: positive: No distention, Tenderness (Mild tenderness in right upper quadrant). negative: Guarding, Rebound Skin: positive: Warm, Dry Extremities: positive: No pedal edema Neurologic/Psychiatric: negative: Disoriented to person, Disoriented to place - Lab Results Fish Bones: 10/31/21 05:42 10/31/21 13:05 Other Labs: Lab Results x24hrs 10/31/21 10/31/21 10/30/21 Range/Units 05:42 05:42 20:41 WBC 3.3 L (4.8-10.8) x10^3/uL RBC 4.07 L (4.20-5.40) 10^6/uL Hgb 11.9 L (12.0-16.0) g/dL Hct 36.1 L (37.0-47.0) % MCV 88.7 (81.0-99.0) fL MCH 29.2 (27.0-31.0) pg MCHC 33.0 (32.0-36.0) g/dL RDW 14.7 (12.0-15.0) % Plt Count 207 (130-450) 10^3/uL MPV 10.2 (7.9-10.8) fL Neut # (Auto) 1.9 (1.5-6.6) 10^3/uL Lymph # (Auto) 1.0 L (1.5-3.5) 10^3/uL Ida # (Auto) 0.3 (0.0-1.0) 10^3/uL Eos # (Auto) 0.0 (0.0-0.7) 10^3/uL Baso # (Auto) 0.0 (0.0-0.1) 10^3/uL Absolute Nucleated RBC 0.00 x10^3/uL Nucleated RBC % 0.0 /100WBC Sodium 135 (135-145) mmol/L Potassium 3.0 L (3.5-5.0) mmol/L Chloride 100 L (101-111) mmol/L Carbon Dioxide 28 (21-32) mmol/L Anion Gap 7.0 (6-13) BUN 6 (6-20) mg/dL Creatinine 0.7 (0.4-1.0) mg/dL Estimated GFR (MDRD) 84 L (>89) Glucose 137 H (70-100) mg/dL Calcium 8.4 L (8.5-10.3) mg/dL Phosphorus 3.2 (2.5-4.6) mg/dL Magnesium 2.0 (1.7-2.8) mg/dL Total Bilirubin (0.2-1.0) mg/dL AST (10-42) IU/L ALT (10-60) IU/L Alkaline Phosphatase (42-121) IU/L Total Protein (6.7-8.2) g/dL Albumin (3.2-5.5) g/dL Globulin (2.1-4.2) g/dL Albumin/Globulin Ratio (1.0-2.2) Lipase (22-51) U/L Urine Color Urine Clarity (CLEAR) Urine pH (5.0-7.5) PH Ur Specific [place] (1.002-1.030) Urine Protein (NEGATIVE) mg/dL Urine Glucose (UA) (NEGATIVE) mg/dL Urine Ketones (NEGATIVE) mg/dL Urine Occult Blood (NEGATIVE) Urine Nitrite (NEGATIVE) Urine Bilirubin (NEGATIVE) Urine Urobilinogen (NORMAL) E.U./dL Ur Leukocyte Esterase (NEGATIVE) Urine RBC (0-5) /HPF Urine WBC (0-5) /HPF Ur Squamous Epith Cells (<= Few) Urine Bacteria (None Seen) /HPF Urine Mucus Ur Microscopic Review Urine Culture Comments Nasal Adenovirus (PCR) NOT DETECTED Nasal B. parapertussis DNA (PCR) NOT DETECTED Nasal Coronavir 229E PCR NOT DETECTED Nasal Coronavir HKU1 PCR NOT DETECTED Nasal Coronavir NL63 PCR NOT DETECTED Nasal Coronavir OC43 PCR NOT DETECTED Nasal Enterovir/Rhinovir PCR NOT DETECTED Nasal Influenza B PCR NOT DETECTED Nasal Influenza A PCR NOT DETECTED Nasal Parainfluen 1 PCR NOT DETECTED Nasal Parainfluen 2 PCR NOT DETECTED Nasal Parainfluen 3 PCR NOT DETECTED Nasal Parainfluen 4 PCR NOT DETECTED Nasal RSV (PCR) NOT DETECTED Nasal B.pertussis DNA PCR NOT DETECTED Nasal C.pneumoniae (PCR) NOT DETECTED Raymond Human Metapneumo PCR NOT DETECTED Nasal M.pneumoniae (PCR) NOT DETECTED Nasal SARS-CoV-2 (PCR) NOT DETECTED 10/30/21 10/30/21 10/30/21 Range/Units 14:49 11:10 11:10 WBC 3.7 L (4.8-10.8) x10^3/uL RBC 4.32 (4.20-5.40) 10^6/uL Hgb 12.6 (12.0-16.0) g/dL Hct 38.1 (37.0-47.0) % MCV 88.2 (81.0-99.0) fL MCH 29.2 (27.0-31.0) pg MCHC 33.1 (32.0-36.0) g/dL RDW 14.6 (12.0-15.0) % Plt Count 226 (130-450) 10^3/uL MPV 9.8 (7.9-10.8) fL Neut # (Auto) 2.4 (1.5-6.6) 10^3/uL Lymph # (Auto) 0.9 L (1.5-3.5) 10^3/uL Ida # (Auto) 0.3 (0.0-1.0) 10^3/uL Eos # (Auto) 0.0 (0.0-0.7) 10^3/uL Baso # (Auto) 0.0 (0.0-0.1) 10^3/uL Absolute Nucleated RBC 0.00 x10^3/uL Nucleated RBC % 0.0 /100WBC Sodium 142 (135-145) mmol/L Potassium 3.2 L (3.5-5.0) mmol/L Chloride 101 (101-111) mmol/L Carbon Dioxide 26 (21-32) mmol/L Anion Gap 15.0 H (6-13) BUN 10 (6-20) mg/dL Creatinine 0.8 (0.4-1.0) mg/dL Estimated GFR (MDRD) 72 L (>89) Glucose 103 H (70-100) mg/dL Calcium 9.4 (8.5-10.3) mg/dL Phosphorus (2.5-4.6) mg/dL Magnesium (1.7-2.8) mg/dL Total Bilirubin 0.9 (0.2-1.0) mg/dL AST 23 (10-42) IU/L ALT 20 (10-60) IU/L Alkaline Phosphatase 28 L (42-121) IU/L Total Protein 6.9 (6.7-8.2) g/dL Albumin 4.5 (3.2-5.5) g/dL Globulin 2.4 (2.1-4.2) g/dL Albumin/Globulin Ratio 1.9 (1.0-2.2) Lipase 49 (22-51) U/L Urine Color YELLOW Urine Clarity HAZY (CLEAR) Urine pH 6.5 (5.0-7.5) PH Ur Specific [place] 1.020 (1.002-1.030) Urine Protein NEGATIVE (NEGATIVE) mg/dL Urine Glucose (UA) NEGATIVE (NEGATIVE) mg/dL Urine Ketones 15 H (NEGATIVE) mg/dL Urine Occult Blood NEGATIVE (NEGATIVE) Urine Nitrite POSITIVE H (NEGATIVE) Urine Bilirubin NEGATIVE (NEGATIVE) Urine Urobilinogen 2 H (NORMAL) E.U./dL Ur Leukocyte Esterase NEGATIVE (NEGATIVE) Urine RBC 0-5 (0-5) /HPF Urine WBC 4-5 (0-5) /HPF Ur Squamous Epith Cells FEW Squamous (<= Few) Urine Bacteria Many H (None Seen) /HPF Urine Mucus Few Strands Ur Microscopic Review INDICATED Urine Culture Comments INDICATED Nasal Adenovirus (PCR) Nasal B. parapertussis DNA (PCR) Nasal Coronavir 229E PCR Nasal Coronavir HKU1 PCR Nasal Coronavir NL63 PCR Nasal Coronavir OC43 PCR Nasal Enterovir/Rhinovir PCR Nasal Influenza B PCR Nasal Influenza A PCR Nasal Parainfluen 1 PCR Nasal Parainfluen 2 PCR Nasal Parainfluen 3 PCR Nasal Parainfluen 4 PCR Nasal RSV (PCR) Nasal B.pertussis DNA PCR Nasal C.pneumoniae (PCR) Raymond Human Metapneumo PCR Nasal M.pneumoniae (PCR) Nasal SARS-CoV-2 (PCR) Assessment/Plan - Problem List (1) Failure to thrive Impression: She has now had 40 pound weight decreased oral intake and ongoing nausea/headache. We suspect this is likely related to the large hepatic cyst w hich may be causing partial outlet obstruction. The plan is to place a PICC line today and start her on TPN. She is at risk for refeeding syndrome and so we will monitor her electrolytes every 8 hours. Once she is stable on TPN we will plan to discharge her home and have her follow-up with her ga stroenterologist and a general surgeon at [facility] in [place] to address the hepatic cyst. Appreciate nutrition input. Qualifiers: Failure to thrive age range: in adult Qualified Code(s): R62.7 - Adult failure to thrive (2) Severe protein-calorie malnutrition Impression: She has severe protein calorie malnutrition secondary to decreased oral intake due to her ongoing nausea/vomiting. Nutrition has been consulted to assist with initiating TPN. (3) Hepatic cyst Impression: CT does reveal a large hepatic cyst and the concern is that this may potentially be causing partial obstruction. The emergency department physician did speak with GI at [place] and they will relay this to the surgeons. The plan is to set up the patient with TPN at this time and have her follow-up on outpatient basis to have this addressed. (4) Partial gastric outlet obstruction Impression: We are concerned that the hepatic cyst may be causing partial gastric outlet obstruction causing her to have the ongoing nausea and vomiting. This will be addressed by general surgery on outpatient basis. (5) Hypokalemia Impression: Secondary to decreased oral intake. We will replace this intravenously today and start her on TPN. We will monitor her electrolytes closely.
[2021-10-31] MEDS ORDERED: ACETAMINOPHEN 325 MG TABLET PO PRN (07:52)
[2021-10-31] MEDS ORDERED: LORazepam 2 MG/ML VIAL IVP STA (08:00)
[2021-10-31] MEDS ORDERED: POTASSIUM CHLORIDE 20 MEQ/15 ML UDC PO ONE (08:00)
[2021-10-31] MEDS: PANTOPRAZOLE 40 MG TABLET PO SCH (08:06)
[2021-10-31] MEDS: MAG HYDROX/AL HYDROX/SIMETH 30 ML UDC PO PRN ×2 (09:45→20:24)
--- NOTE | 2021-10-31 10:44 | XRAY Report ---
PROCEDURE: Chest for Line Placement INDICATIONS: new PICC@ R basilic v TECHNIQUE: One view of the chest was acquired. COMPARISON: None FINDINGS: Surgical changes and devices: PICC line projects over the junction of the right subclavian vein/SVC. Lungs and pleura: No pleural effusions or pneumothorax. Lungs are clear. Mediastinum: Mediastinal contours appear normal. Heart size is normal. Bones and chest wall: No suspicious bony lesions. Overlying soft tissues appear unremarkable. IMPRESSION: Tip of PICC line projects over the right subclavian vein/SVC junction should be advanced several cent imeters. Reviewed by: Joanne Espinoza MD, PhD on 10/31/2021 10:42 AM PST Approved by: Joanne Espinoza MD, PhD on 10/31/2021 10:42 AM PST Station ID: [id number]
[2021-10-31] MEDS: SUCRALFATE 1 GM/10 ML UDC PO SCH ×4 (11:21→21:25)
[2021-10-31] MEDS: POTASSIUM CHLOR 10 MEQ/100 ML 10 MEQ/100 ML BAG IV SCH ×4 (11:23→17:34)
[2021-10-31] MEDS ORDERED: CARBOXYMETHYLCELLULOSE OPHTH DROPS EACHEYE PRN (11:55)
--- NOTE | 2021-10-31 13:10 | ANESTHESIA PROCEDURE NOTE ---
Anesth Central Line Template - Central Line Central Line Preparation: Consent Obtained, Time out completed, Ultrasound used, Sterile prep and drape Central line location: Right Basilic Central line type: PICC Double Lumen Central line catheter tip site resides: Superior vena cava (SVC) Central line aftercare: Secured, Placement confirmed, No pneumothorax, No complications, Bundle checklist complete, Pt tolerated well, Other
--- NOTE | 2021-10-31 13:13 | CONSULTATION NOTE ---
Consultation Report: Called for bleeding at PICC insertion site. PICC patent but large volume of blood under PICC dressing as well as on gown, bed, and blankets. IVFs stopped at PICC. Discussed replacing PICC at L arm. Pt to have PT INR drawn r/t excessive bleeding and new dx liver mass. Will continue to follow patient and will follow up on PICC placement plan.
[2021-10-31 13:18] LABS: INR 1.3 (0.8-1.2)
[2021-10-31 13:24] LABS: BUN - BLOOD UREA NITROGEN < 5 mg/dL (6-20); CALCIUM 8.8 mg/dL (8.5-10.3); CARBON DIOXIDE - CO2 28 mmol/L (21-32); CHLORIDE 101 mmol/L (101-111); CREATININE 0.8 mg/dL (0.4-1.0); GFR - MDRD 72 (>89); GLUCOSE 156 mg/dL (70-100); PHOSPHORUS 2.5 mg/dL (2.5-4.6); POTASSIUM 3.6 mmol/L (3.5-5.0); SODIUM 136 mmol/L (135-145)
[2021-10-31 13:25] LABS: PARTIAL THROMBOPLASTIN TIME 28.3 secs (24.9-33.3)
[2021-10-31] MEDS: MULTIVITAMIN IV SCH ×6 (14:31)
[2021-10-31] MEDS: FOLIC ACID IV SCH ×6 (14:31)
[2021-10-31] MEDS: THIAMINE IV SCH ×6 (14:31)
[2021-10-31] MEDS: [UNRECOGNIZED DRUG - OTHER] IV SCH ×6 (14:31)
[2021-10-31] MEDS: MAGNESIUM SULFATE IV SCH ×6 (14:31)
--- NOTE | 2021-10-31 14:32 | ANESTHESIA PROCEDURE NOTE ---
Anesth Central Line Template - Central Line Central Line Preparation: Consent Obtained, Time out completed, Ultrasound used, Sterile prep and drape Central line location: Left Basilic Central line type: PICC Double Lumen Central line catheter tip site resides: Superior vena cava (SVC) Central line aftercare: Secured, Placement confirmed, No pneumothorax, No complications, Bundle checklist complete, Pt tolerated well, Other Other Info/Details: R sided PICC removed after continuously leaking blood at insertion site. Gauze and kerlix to site with wrap pressure. New L sided PICC placed. Cut at 43, hubbed. PCXR to room. Tip appears in SVC, cavoatrial junction. Pt tolerated procedure without complication or complaint. OK to use PICC
--- NOTE | 2021-10-31 14:41 | XRAY Report ---
PROCEDURE: Chest for Line Placement INDICATIONS: new PICC @L basilic v. TECHNIQUE: One view of the chest was acquired. COMPARISON: CT chest dated 10/05/2021 FINDINGS: Surgical changes and devices: Left-sided PICC line tip is in SVC.. Lungs and pleura: No pleural effusions or pneumothorax. Lungs are clear. Mediastinum: Mediastinal contours appear normal. Heart size is normal. Bones and chest wall: No suspicious bony lesions. Overlying soft tissues appear unremarkable. IMPRESSION: Left-sided PICC line tip is in SVC. No acute cardiopulmonary pathology. Reviewed by: Omid Baez MD on 10/31/2021 2:39 PM PST Approved by: Omid Baez MD on 10/31/2021 2:39 PM PST Station ID: [id number]
[2021-10-31] MEDS: BENZOCAINE/MENTHOL LOZENGE MM PRN ×2 (15:01→19:21)
[2021-10-31] MEDS: GI COCKTAIL 120 ML BOTTLE PO PRN (15:48)
[2021-10-31] MEDS: PHOSPHO IV SCH (19:12)
[2021-10-31] MEDS: FAT EMULSION IV SCH (19:12)
[2021-10-31] MEDS: SOY IV SCH (19:12)
[2021-10-31] MEDS: OLIVE IV SCH (19:12)
[2021-10-31] MEDS: TPN (CLINIMIX E 5/15) 2,000 ML IV SCH (19:12)
[2021-10-31] MEDS: hydrOXYzine PAMOATE 25 MG CAPSULE PO SCH (21:25)
[2021-10-31 22:40] LABS: BUN - BLOOD UREA NITROGEN < 5 mg/dL (6-20); CALCIUM 8.4 mg/dL (8.5-10.3); CARBON DIOXIDE - CO2 27 mmol/L (21-32); CHLORIDE 103 mmol/L (101-111); CREATININE 0.6 mg/dL (0.4-1.0); GFR - MDRD 100 (>89); GLUCOSE 116 mg/dL (70-100); MAGNESIUM 2.5 mg/dL (1.7-2.8); PHOSPHORUS 2.4 mg/dL (2.5-4.6); POTASSIUM 3.3 mmol/L (3.5-5.0); SODIUM 137 mmol/L (135-145)
[2021-11-01] MEDS: SODIUM CHLORIDE FLUSH 0.9% 10 ML SYRINGE IVP SCH ×3 (01:02→15:41)
[2021-11-01] MEDS: GI COCKTAIL 120 ML BOTTLE PO PRN ×3 (03:24→16:47)
[2021-11-01] MEDS: hydrOXYzine PAMOATE 25 MG CAPSULE PO SCH ×2 (03:25→20:39)
[2021-11-01 05:55] LABS: ALBUMIN 3.6 g/dL (3.2-5.5); ALBUMIN/GLOBULIN RATIO 1.7 (1.0-2.2); ALKALINE PHOSPHATASE 25 IU/L (42-121); ALT ALANINE AMINOTRANSFERASE 22 IU/L (10-60); AST ASPARTATE AMINOTRANSFERASE 29 IU/L (10-42); BILIRUBIN,TOTAL 0.5 mg/dL (0.2-1.0); BUN - BLOOD UREA NITROGEN < 5 mg/dL (6-20); CALCIUM 8.2 mg/dL (8.5-10.3); CARBON DIOXIDE - CO2 26 mmol/L (21-32); CHLORIDE 101 mmol/L (101-111); CREATININE 0.6 mg/dL (0.4-1.0); GFR - MDRD 100 (>89); GLUCOSE 112 mg/dL (70-100); MAGNESIUM 2.7 mg/dL (1.7-2.8); PHOSPHORUS 2.4 mg/dL (2.5-4.6); POTASSIUM 3.3 mmol/L (3.5-5.0); PREALBUMIN 15 mg/dL (18-45); SODIUM 135 mmol/L (135-145); TOTAL PROTEIN 5.7 g/dL (6.7-8.2); TRIGLYCERIDES 216 mg/dL
[2021-11-01] MEDS: SUCRALFATE 1 GM/10 ML UDC PO SCH ×4 (06:39→20:42)
[2021-11-01] MEDS: PANTOPRAZOLE 40 MG TABLET PO SCH (06:39)
--- NOTE | 2021-11-01 07:32 | PROVIDER PROGRESS NOTE ---
Subjective - Prog Note Date Prog Note Date: 11/01/21 - Subjective Subjective: She continues to complain of pain in her throat which she attributes to heartburn. She finds relief with the Carafate but does not last very long. Current Medications - Current Medications Current Medications: Active Medications Acetaminophen (Acetaminophen 325 Mg Tablet) 650 mg PO Q4HR PRN PRN Reason: Pain or Fever > 38C (100.4F) Al Hydroxide/Mg Hydroxide (Mag Hydrox/Al Hydrox/Simeth 30 Ml Udc) 30 ml PO Q4HR PRN PRN Reason: INDIGESTION Last Admin: 10/31/21 20:24 Dose: 30 ml Documented by: Carboxymethylcellulose (Carboxymethylcellulose Ophth Drops) 1 drops EACHEYE PRN PRN PRN Reason: Dry Eye Hydroxyzine Pamoate (Hydroxyzine Pamoate 25 Mg Capsule) 50 mg PO QPM [facility] Last Admin: 11/01/21 03:25 Dose: 50 mg Documented by: Multivitamins 10 ml/ Thiamine HCl 100 mg/ Magnesium Sulfate 2 gm/ Folic Acid 1 mg/ TRACE ELEMENTS 1 ml/ Sodium Chloride 1,016.2 mls @ 75 mls/hr IV DAILY@1300 NANCY Last Infusion: 11/01/21 04:30 Dose: Infused Documented by: Amino Ac/Electrol/Dextrose/Calcium (Clinimix E 5%-15% Solution) 2,000 mls @ 25 mls/hr IV Q24H NANCY; Protocol Last Admin: 10/31/21 19:12 Dose: 25 mls/hr Documented by: FAT EMULSION/OLIVE/SOY/PHOSPHO (Clinolipid 20% Iv Fat Emulsion) 50 in 250 mls @ 21 mls/hr IV 1900 NANCY Last Infusion: 11/01/21 07:10 Dose: Infused Documented by: Loratadine (Loratadine 10 Mg Tablet) 10 mg PO DAILY PRN PRN Reason: Allergy Symptoms Multi-Ingredient Mouthwash/Gargle (Gi Cocktail 120 Ml Bottle) 10 ml PO Q6H PRN PRN Reason: PAIN Last Admin: 11/01/21 03:24 Dose: 10 ml Documented by: Ondansetron HCl (Ondansetron 4 Mg/2 Ml Vial) 4 mg IVP Q6HR PRN PRN Reason: Nausea / Vomiting Last Admin: 11/01/21 08:32 Dose: 4 mg Documented by: Pantoprazole Sodium (Pantoprazole 40 Mg Tablet) 40 mg PO QDAC [facility] Last Admin: 11/01/21 06:39 Dose: 40 mg Documented by: Sodium Chloride (Sodium Chloride Flush 0.9% 10 Ml Syringe) 10 ml IVP PRN PRN PRN Reason: NEEDED PER PROVIDER ORDERS Sodium Chloride (Sodium Chloride Flush 0.9% 10 Ml Syringe) 10 ml IVP 0100,0900,1700 [facility] Last Admin: 11/01/21 08:34 Dose: 10 ml Documented by: Sodium Chloride (Sodium Chloride Flush 0.9% 10 Ml Syringe) 20 ml IVP PRN PRN PRN Reason: After Blood Draw Sodium Phosphate (Neutra-Phos 250 Mg Tablet) 250 mg PO ONCE ONE Stop: 11/01/21 09:01 Last Admin: 11/01/21 08:31 Dose: 250 mg Documented by: Sucralfate (Sucralfate 1 Gm/10 Ml Udc) 1 gm PO 0700,1100,1600,2200 [facility] Last Admin: 11/01/21 06:39 Dose: 1 gm Documented by: Throat Lozenges (Benzocaine/Menthol Lozenge) 1 lozenge MM Q2HR PRN PRN Reason: Throat pain Last Admin: 10/31/21 19:21 Dose: 1 lozenge Documented by: Zolpidem Tartrate (Zolpidem 5 Mg Tablet) 10 mg PO QPM PRN PRN Reason: Insomnia Last Admin: 10/31/21 21:25 Dose: 10 mg Documented by: Spironolactone [Aldactone] 75 mg PO QDBREAKFAST 08/27/21 Alprazolam [Xanax] 0.25 mg PO BID PRN 10/31/21 Baclofen [Lioresal] 5 mg PO BID PRN 10/31/21 Fluconazole [Diflucan] 100 mg PO DAILY 10/31/21 Gabapentin [Neurontin] 100 mg PO TID PRN 10/31/21 Pantoprazole [Protonix] 40 mg PO QDAC 10/31/21 Pyridostigmine [place] [Mestinon] 30 mg PO 0700,1100 10/31/21 Spironolactone [Aldactone] 25 mg PO QPM 10/31/21 Sucralfate [Carafate] 1 gm PO AC 10/31/21 Zolpidem [Ambien] 10 mg PO HS PRN 10/31/21 hydrOXYzine HCL [Hydroxyzine HCl] 50 mg PO Q8H PRN 10/31/21 oxyCODONE/ACET 5/325 [Percocet 5 mg/325 mg] 1 each PO DAILY PRN 10/31/21 traMADol [Ultram] 50 mg PO BID PRN 10/31/21 Objective - Vital Signs/Intake & Output Reviewed Vital Signs: Yes Vital Signs: Vital Signs x48h Temp Pulse Resp BP Pulse Ox 11/01/21 02:29 37 C 79 16 125/84 H 100 Intake & Output: Intake & Output 10/29/21 10/30/21 10/31/21 11/01/21 23:59 23:59 23:59 23:59 Intake Total 1000 4176.667 1266.2 Balance 1000 4176.667 1266.2 - Objective General Appearance: positive: No acute distress, Alert Eyes Bilateral: positive: Normal inspection, Conjunctivae nml ENT: positive: ENT inspection nml Neck: positive: Nml inspection Respiratory: positive: No respiratory distress. negative: Wheezes, Rales Cardiovascular: positive: Regular rate & rhythm. negative: Tachycardia Abdomen: positive: Nml bowel sounds, Tenderness (Mild in right upper quadrant.). negative: Non-tender Skin: positive: Warm, Dry Extremities: positive: No pedal edema, Other (Left upper extremity PICC in place.) Neurologic/Psychiatric: positive: Motor nml. negative: Disoriented to person, Disoriented to place - Lab Results Fish Bones: 10/31/21 05:42 11/01/21 13:50 Other Labs: Lab Results x24hrs 11/01/21 11/01/21 10/31/21 Range/Units 07:23 04:35 22:17 PT (9.9-12.6) secs INR (0.8-1.2) APTT (24.9-33.3) secs Sodium 135 137 (135-145) mmol/L Potassium 3.3 L 3.3 L (3.5-5.0) mmol/L Chloride 101 103 (101-111) mmol/L Carbon Dioxide 26 27 (21-32) mmol/L Anion Gap 8.0 7.0 (6-13) BUN < 5 L < 5 L (6-20) mg/dL Creatinine 0.6 0.6 (0.4-1.0) mg/dL Estimated GFR (MDRD) 100 100 (>89) Glucose 112 H 116 H (70-100) mg/dL POC Whole Bld Glucose 123 H (70 - 100) mg/dL Calcium 8.2 L 8.4 L (8.5-10.3) mg/dL Phosphorus 2.4 L 2.4 L (2.5-4.6) mg/dL Magnesium 2.7 2.5 (1.7-2.8) mg/dL Total Bilirubin 0.5 (0.2-1.0) mg/dL AST 29 (10-42) IU/L ALT 22 (10-60) IU/L Alkaline Phosphatase 25 L (42-121) IU/L Total Protein 5.7 L (6.7-8.2) g/dL Albumin 3.6 (3.2-5.5) g/dL Globulin 2.1 (2.1-4.2) g/dL Albumin/Globulin Ratio 1.7 (1.0-2.2) Prealbumin 15 L (18-45) mg/dL Triglycerides 216 H ( - 149) mg/dL 10/31/21 10/31/21 10/31/21 Range/Units 21:08 13:05 13:05 PT 14.0 H (9.9-12.6) secs INR 1.3 H (0.8-1.2) APTT 28.3 (24.9-33.3) secs Sodium 136 (135-145) mmol/L Potassium 3.6 (3.5-5.0) mmol/L Chloride 101 (101-111) mmol/L Carbon Dioxide 28 (21-32) mmol/L Anion Gap 7.0 (6-13) BUN < 5 L (6-20) mg/dL Creatinine 0.8 (0.4-1.0) mg/dL Estimated GFR (MDRD) 72 L (>89) Glucose 156 H (70-100) mg/dL POC Whole Bld Glucose 99 (70 - 100) mg/dL Calcium 8.8 (8.5-10.3) mg/dL Phosphorus 2.5 (2.5-4.6) mg/dL Magnesium 2.0 (1.7-2.8) mg/dL Total Bilirubin (0.2-1.0) mg/dL AST (10-42) IU/L ALT (10-60) IU/L Alkaline Phosphatase (42-121) IU/L Total Protein (6.7-8.2) g/dL Albumin (3.2-5.5) g/dL Globulin (2.1-4.2) g/dL Albumin/Globulin Ratio (1.0-2.2) Prealbumin (18-45) mg/dL Triglycerides ( - 149) mg/dL Assessment/Plan - Problem List (1) Failure to thrive Impression: Secondary to decreased oral intake which we suspect is due to ongoing nausea/vomiting secondary to partial gastric outlet obstruction from a large hepatic cyst. She has had a 40 pound weight loss over the past 2 months. She is admitted for initiation of TPN as she is at risk for refeeding syndrome. TPN was started yesterday evening and we are monitoring electrolytes every 8 hours. Her phosphorus and potassium slightly decreased this morning and these will be supplemented orally. She can be discharged home when we can ensure that electrolytes are stable over the next 24 hours or so. We will also need to have home infusion set up which may be difficult tomorrow given it is [place] but we are hopeful that she can be discharged over the weekend. She will ultimately need to be followed up by her associate editor and surgeon at [place] to address the hepatic cyst. Qualifiers: Failure to thrive age range: in adult Qualified Code(s): R62.7 - Adult failure to thrive (2) Severe protein-calorie malnutrition Impression: She has severe protein calorie malnutrition secondary to decreased oral intake due to her ongoing nausea/vomiting. We have started her on TPN yesterday evening and she will be monitored for refeeding syndrome. Once stable, she will be discharged home on TPN. (3) Hepatic cyst Impression: CT does reveal a large hepatic cyst and the concern is that this may potentially be causing partial obstruction. The emergency department physician did speak with GI at [place] and they will relay this to their surgeons. The plan is to set up the patient with TPN at this time and have her follow-up on outpatient basis to have this addressed. (4) GERD (gastroesophageal reflux disease) Impression: Ongoing. She reportedly had an EGD which was unremarkable. We will continue with Carafate and GI cocktail as needed. Continue Protonix. Liquid diet as tolerated. (5) Partial gastric outlet obstruction Impression: We are concerned that the hepatic cyst may be causing partial gastric outlet obstruction causing her to have the ongoing nausea and vomiting. This will be addressed by general surgery on outpatient basis. (6) Hypokalemia Impression: Secondary to decreased oral intake. We will replace this orally today and m onitor electrolytes closely as she is at risk for refeeding syndrome.
[2021-11-01] MEDS ORDERED: POTASSIUM CHLORIDE 20 MEQ/15 ML UDC PO ONE ×3 (08:00→17:00)
[2021-11-01] MEDS ORDERED: NEUTRA-PHOS 250 MG TABLET PO ONE (09:00)
[2021-11-01] MEDS ORDERED: BACLOFEN 10 MG TABLET PO PRN (09:28)
[2021-11-01] MEDS: traMADol 50 MG TABLET PO PRN (10:46)
[2021-11-01] MEDS: PYRIDOSTIGMINE BROMIDE 60 MG PO SCH (11:51)
[2021-11-01] MEDS: FOLIC ACID IV SCH ×6 (13:21)
[2021-11-01] MEDS: [UNRECOGNIZED DRUG - OTHER] IV SCH ×6 (13:21)
[2021-11-01] MEDS: MULTIVITAMIN IV SCH ×6 (13:21)
[2021-11-01] MEDS: THIAMINE IV SCH ×6 (13:21)
[2021-11-01] MEDS: MAGNESIUM SULFATE IV SCH ×6 (13:21)
[2021-11-01 14:14] LABS: CALCIUM 8.3 mg/dL (8.5-10.3); CREATININE 0.6 mg/dL (0.4-1.0); MAGNESIUM 2.4 mg/dL (1.7-2.8); PHOSPHORUS 2.6 mg/dL (2.5-4.6); POTASSIUM 3.4 mmol/L (3.5-5.0)
[2021-11-01] MEDS: MAG HYDROX/AL HYDROX/SIMETH 30 ML UDC PO PRN (18:25)
[2021-11-01] MEDS: SOY IV SCH (19:44)
[2021-11-01] MEDS: OLIVE IV SCH (19:44)
[2021-11-01] MEDS: TPN (CLINIMIX E 5/15) 2,000 ML IV SCH (19:44)
[2021-11-01] MEDS: PHOSPHO IV SCH (19:44)
[2021-11-01] MEDS: FAT EMULSION IV SCH (19:44)
[2021-11-01] MEDS ORDERED: SPIRONOLACTONE 25 MG TABLET PO SCH (21:00)
[2021-11-01] MEDS: GABAPENTIN 100 MG CAPSULE PO PRN (22:05)
[2021-11-01] MEDS: ZOLPIDEM 5 MG TABLET PO PRN (22:05)
[2021-11-01 22:34] LABS: CALCIUM 8.1 mg/dL (8.5-10.3); CREATININE 0.6 mg/dL (0.4-1.0); MAGNESIUM 2.8 mg/dL (1.7-2.8); PHOSPHORUS 2.7 mg/dL (2.5-4.6); POTASSIUM 3.3 mmol/L (3.5-5.0)
[2021-11-02] MEDS: GI COCKTAIL 120 ML BOTTLE PO PRN ×4 (02:34→20:51)
[2021-11-02] MEDS: SODIUM CHLORIDE FLUSH 0.9% 10 ML SYRINGE IVP SCH ×3 (03:08→17:10)
[2021-11-02] MEDS: ALPRAZolam 0.25 MG TABLET PO PRN (05:25)
[2021-11-02 06:34] LABS: CALCIUM 8.1 mg/dL (8.5-10.3); CREATININE 0.6 mg/dL (0.4-1.0); MAGNESIUM 2.6 mg/dL (1.7-2.8); PHOSPHORUS 2.9 mg/dL (2.5-4.6); POTASSIUM 3.2 mmol/L (3.5-5.0)
[2021-11-02] MEDS: PANTOPRAZOLE 40 MG TABLET PO SCH (07:21)
[2021-11-02] MEDS: SUCRALFATE 1 GM/10 ML UDC PO SCH ×3 (07:22→18:04)
[2021-11-02] MEDS: PYRIDOSTIGMINE BROMIDE 60 MG PO SCH ×2 (07:22→18:03)
[2021-11-02] MEDS ORDERED: SPIRONOLACTONE 25 MG TABLET PO SCH (08:00)
[2021-11-02] MEDS: POTASSIUM CHLORIDE 20 MEQ/15 ML UDC PO SCH ×2 (09:05→18:04)
--- NOTE | 2021-11-02 09:27 | PHARMACY PROGRESS NOTE ---
- Best Possible Medication History Admit Date and Time: 10/30/212035 Processed by: Pharmacy Medication History completed: Yes Secondary Source(s): Physician records, Pharmacy records, Insurance records As the person ultimately responsible for medication therapy, providers are able to order a medication from an existing home medication list in [facility] via the "Reconcile Routine" prior to Confirmation of that medication by sales support assistant. Such practice is discouraged except when the physician, in their clinical judgment, deems that a medical need exists for a medication without regard to previous use.
--- NOTE | 2021-11-02 10:56 | PROVIDER PROGRESS NOTE ---
Subjective - Prog Note Date Prog Note Date: 11/02/21 - Subjective Subjective: She feels a little better today. Still has heartburn and acid reflux. Feels little bloated at times. Current Medications - Current Medications Current Medications: Active Medications Acetaminophen (Acetaminophen 325 Mg Tablet) 650 mg PO Q4HR PRN PRN Reason: Pain or Fever > 38C (100.4F) Al Hydroxide/Mg Hydroxide (Mag Hydrox/Al Hydrox/Simeth 30 Ml Udc) 30 ml PO Q4HR PRN PRN Reason: INDIGESTION Last Admin: 11/01/21 18:25 Dose: 30 ml Documented by: Alprazolam (Alprazolam 0.25 Mg Tablet) 0.25 mg PO BID PRN PRN Reason: Anxiety Last Admin: 11/02/21 05:25 Dose: 0.25 mg Documented by: Baclofen (Baclofen 10 Mg Tablet) 5 mg PO BID PRN PRN Reason: Spasms Carboxymethylcellulose (Carboxymethylcellulose Ophth Drops) 1 drops EACHEYE PRN PRN PRN Reason: Dry Eye Last Admin: 11/02/21 09:06 Dose: 1 unit Documented by: Gabapentin (Gabapentin 100 Mg Capsule) 100 mg PO TID PRN PRN Reason: NEUROPATHY Last Admin: 11/01/21 22:05 Dose: 100 mg Documented by: Hydroxyzine Pamoate (Hydroxyzine Pamoate 25 Mg Capsule) 50 mg PO QPM NANCY Last Admin: 11/01/21 20:39 Dose: 50 mg Documented by: Multivitamins 10 ml/ Thiamine HCl 100 mg/ Magnesium Sulfate 2 gm/ Folic Acid 1 mg/ TRACE ELEMENTS 1 ml/ Sodium Chloride 1,016.2 mls @ 75 mls/hr IV DAILY@1300 NANCY Last Infusion: 11/02/21 03:20 Dose: Infused Documented by: Amino Ac/Electrol/Dextrose/Calcium (Clinimix E 5%-15% Solution) 2,000 mls @ 25 mls/hr IV Q24H NANCY; Protocol Last Admin: 11/01/21 19:44 Dose: 25 mls/hr Documented by: FAT EMULSION/OLIVE/SOY/PHOSPHO (Clinolipid 20% Iv Fat Emulsion) 50 in 250 mls @ 21 mls/hr IV 1900 NANCY Last Infusion: 11/02/21 08:56 Dose: Infused Documented by: Loratadine (Loratadine 10 Mg Tablet) 10 mg PO DAILY PRN PRN Reason: Allergy Symptoms Multi-Ingredient Mouthwash/Gargle (Gi Cocktail 120 Ml Bottle) 10 ml PO Q6H PRN PRN Reason: PAIN Last Admin: 11/02/21 09:06 Dose: 10 ml Documented by: Ondansetron HCl (Ondansetron 4 Mg/2 Ml Vial) 4 mg IVP Q6HR PRN PRN Reason: Nausea / Vomiting Last Admin: 11/01/21 08:32 Dose: 4 mg Documented by: Pantoprazole Sodium (Pantoprazole 40 Mg Tablet) 40 mg PO QDAC [facility] Last Admin: 11/02/21 07:21 Dose: 40 mg Documented by: Patient Own Med: Pyridostigmine [place] 60 Mg Tablet 0.5 each PO 0700,1100 [facility] Last Admin: 11/02/21 07:22 Dose: 0.5 each Documented by: Potassium Chloride (Potassium Chloride 20 Meq/15 Ml Udc) 20 meq PO BIDWM [facility] Last Admin: 11/02/21 09:05 Dose: 20 meq Documented by: Sodium Chloride (Sodium Chloride Flush 0.9% 10 Ml Syringe) 10 ml IVP PRN PRN PRN Reason: NEEDED PER PROVIDER ORDERS Sodium Chloride (Sodium Chloride Flush 0.9% 10 Ml Syringe) 10 ml IVP 0100,0900,1700 [facility] Last Admin: 11/02/21 09:07 Dose: 10 ml Documented by: Sodium Chloride (Sodium Chloride Flush 0.9% 10 Ml Syringe) 20 ml IVP PRN PRN PRN Reason: After Blood Draw Sucralfate (Sucralfate 1 Gm/10 Ml Udc) 1 gm PO 0700,1100,1600,2200 [facility] Last Admin: 11/02/21 07:22 Dose: 1 gm Documented by: Throat Lozenges (Benzocaine/Menthol Lozenge) 1 lozenge MM Q2HR PRN PRN Reason: Throat pain Last Admin: 10/31/21 19:21 Dose: 1 lozenge Documented by: Tramadol HCl (Tramadol 50 Mg Tablet) 50 mg PO BID PRN PRN Reason: PAIN Last Admin: 11/01/21 10:46 Dose: 50 mg Documented by: Zolpidem Tartrate (Zolpidem 5 Mg Tablet) 10 mg PO QPM PRN PRN Reason: Insomnia Last Admin: 11/01/21 22:05 Dose: 10 mg Documented by: Alprazolam [Xanax] 0.25 mg PO BID PRN 10/31/21 Baclofen [Lioresal] 5 mg PO BID PRN 10/31/21 Fluconazole [Diflucan] 100 mg PO DAILY 10/31/21 Gabapentin [Neurontin] 100 mg PO TID PRN 10/31/21 Pantoprazole [Protonix] 40 mg PO QDAC 10/31/21 Pyridostigmine [place] [Mestinon] 30 mg PO 0700,1100 10/31/21 Sucralfate [Carafate] 1 gm PO AC 10/31/21 Zolpidem [Ambien] 10 mg PO HS PRN 10/31/21 hydrOXYzine HCL [Hydroxyzine HCl] 50 mg PO Q8H PRN 10/31/21 oxyCODONE/ACET 5/325 [Percocet 5 mg/325 mg] 1 each PO DAILY PRN 10/31/21 traMADol [Ultram] 50 mg PO BID PRN 10/31/21 Objective - Vital Signs/Intake & Output Reviewed Vital Signs: Yes Vital Signs: Vital Signs x48h Temp Pulse Resp BP Pulse Ox 11/02/21 08:00 36.8 C 95 16 110/83 H 99 Intake & Output: Intake & Output 10/30/21 10/31/21 11/01/21 11/02/21 23:59 23:59 23:59 23:59 Intake Total 1000 4176.667 3179.533 1516.2 Balance 1000 4176.667 3179.533 1516.2 - Objective General Appearance: positive: No acute distress, Alert Eyes Bilateral: positive: Normal inspection, Conjunctivae nml ENT: positive: ENT inspection nml Neck: positive: Nml inspection Respiratory: positive: No respiratory distress Abdomen: positive: Nml bowel sounds, No distention, Tenderness (Mild right upper quadrant tenderness.). negative: Guarding, Rebound Skin: positive: Warm, Dry - Lab Results Fish Bones: 10/31/21 05:42 11/02/21 13:52 Other Labs: Lab Results x24hrs 11/02/21 11/02/21 11/01/21 Range/Units 07:52 06:00 22:17 Sodium 136 136 (135-145) mmol/L Potassium 3.2 L 3.3 L (3.5-5.0) mmol/L Chloride 103 102 (101-111) mmol/L Carbon Dioxide 26 28 (21-32) mmol/L Anion Gap 7.0 6.0 (6-13) BUN 5 L 5 L (6-20) mg/dL Creatinine 0.6 0.6 (0.4-1.0) mg/dL Estimated GFR (MDRD) 100 100 (>89) Glucose 123 H 117 H (70-100) mg/dL POC Whole Bld Glucose 111 H (70 - 100) mg/dL Calcium 8.1 L 8.1 L (8.5-10.3) mg/dL Phosphorus 2.9 2.7 (2.5-4.6) mg/dL Magnesium 2.6 2.8 (1.7-2.8) mg/dL 11/01/21 11/01/21 11/01/21 Range/Units 20:43 16:18 13:50 Sodium 136 (135-145) mmol/L Potassium 3.4 L (3.5-5.0) mmol/L Chloride 102 (101-111) mmol/L Carbon Dioxide 27 (21-32) mmol/L Anion Gap 7.0 (6-13) BUN 5 L (6-20) mg/dL Creatinine 0.6 (0.4-1.0) mg/dL Estimated GFR (MDRD) 100 (>89) Glucose 122 H (70-100) mg/dL POC Whole Bld Glucose 100 120 H (70 - 100) mg/dL Calcium 8.3 L (8.5-10.3) mg/dL Phosphorus 2.6 (2.5-4.6) mg/dL Magnesium 2.4 (1.7-2.8) mg/dL 11/01/21 Range/Units 11:04 Sodium (135-145) mmol/L Potassium (3.5-5.0) mmol/L Chloride (101-111) mmol/L Carbon Dioxide (21-32) mmol/L Anion Gap (6-13) BUN (6-20) mg/dL Creatinine (0.4-1.0) mg/dL Estimated GFR (MDRD) (>89) Glucose (70-100) mg/dL POC Whole Bld Glucose 134 H (70 - 100) mg/dL Calcium (8.5-10.3) mg/dL Phosphorus (2.5-4.6) mg/dL Magnesium (1.7-2.8) mg/dL Assessment/Plan - Problem List (1) Failure to thrive Impression: Secondary to decreased oral intake which we suspect is due to ongoing nausea/vomiting secondary to partial gastric outlet obstruction from a large hepatic cyst. She has had a 40 pound weight loss over the past 2 months. She is admitted for initiation of TPN as she is at risk for refeeding syndrome. TPN has been initiated 48 hours ago and her rate was increased yesterday to her suspected maintenance rate. Her electrolytes have been acceptable except for slightly decreased potassium which we have supplemented orally. Unfortunate she cannot be discharged home today as we have not set up home infusion for outpatient TPN we are hopeful this can be done tomorrow and if so she can be discharged then. Qualifiers: Failure to thrive age range: in adult Qualified Code(s): R62.7 - Adult failure to thrive (2) Severe protein-calorie malnutrition Impression: She has severe protein calorie malnutrition secondary to decreased oral intake due to her ongoing nausea/vomiting. She is tolerating TPN and the plan to discharge her home on TPN until she can follow-up with GI to address the hepatic cyst. (3) Hepatic cyst Impression: CT does reveal a large hepatic cyst and the concern is that this may potentially be causing partial obstruction. The emergency department physician did speak with GI at [place] and they will relay this to their surgeons. The plan is to set up the patient with TPN at this time and have her follow-up on outpatient basis to have this addressed. (4) GERD (gastroesophageal reflux disease) Impression: Ongoing but stable. She reportedly had an EGD which was unremarkable. We will continue with Carafate and GI cocktail as needed. Continue Protonix. Liquid diet as tolerated. (5) Partial gastric outlet obstruction Impression: We are concerned that the hepatic cyst may be causing partial gastric outlet obstruction causing her to have the ongoing nausea and vomiting. This will be addressed by general surgery on outpatient basis. (6) Hypokalemia Impression: Secondary to decreased oral intake. We will replace this orally.
[2021-11-02] MEDS: GABAPENTIN 100 MG CAPSULE PO PRN ×2 (11:17→18:04)
[2021-11-02] MEDS: MAG HYDROX/AL HYDROX/SIMETH 30 ML UDC PO PRN ×3 (11:17→19:20)
[2021-11-02] MEDS: MULTIVITAMIN IV SCH ×6 (13:05)
[2021-11-02] MEDS: THIAMINE IV SCH ×6 (13:05)
[2021-11-02] MEDS: FOLIC ACID IV SCH ×6 (13:05)
[2021-11-02] MEDS: [UNRECOGNIZED DRUG - OTHER] IV SCH ×6 (13:05)
[2021-11-02] MEDS: MAGNESIUM SULFATE IV SCH ×6 (13:05)
[2021-11-02 14:11] LABS: CALCIUM 8.4 mg/dL (8.5-10.3); CREATININE 0.6 mg/dL (0.4-1.0); MAGNESIUM 2.5 mg/dL (1.7-2.8); PHOSPHORUS 2.7 mg/dL (2.5-4.6); POTASSIUM 3.5 mmol/L (3.5-5.0)
[2021-11-02] MEDS: traMADol 50 MG TABLET PO PRN (15:10)
[2021-11-02] MEDS ORDERED: SODIUM CHLORIDE INHALATION 3 ML NEB ONE (16:56)
[2021-11-02] MEDS: FAT EMULSION IV SCH (19:21)
[2021-11-02] MEDS: OLIVE IV SCH (19:21)
[2021-11-02] MEDS: PHOSPHO IV SCH (19:21)
[2021-11-02] MEDS: TPN (CLINIMIX E 5/15) 2,000 ML IV SCH (19:21)
[2021-11-02] MEDS: SOY IV SCH (19:21)
[2021-11-02] MEDS ORDERED: HYDROmorphone 1 MG/ML CARPUJECT IVP STA (20:55)
[2021-11-02] MEDS: hydrOXYzine PAMOATE 25 MG CAPSULE PO SCH (21:07)
[2021-11-02] MEDS: ZOLPIDEM 5 MG TABLET PO PRN (21:07)
[2021-11-02] MEDS: SODIUM CHLORIDE FLUSH 0.9% 10 ML SYRINGE IVP PRN (21:07)
[2021-11-02 22:18] LABS: CALCIUM 8.1 mg/dL (8.5-10.3); CREATININE 0.6 mg/dL (0.4-1.0); MAGNESIUM 2.8 mg/dL (1.7-2.8); PHOSPHORUS 3.2 mg/dL (2.5-4.6); POTASSIUM 3.4 mmol/L (3.5-5.0)
[2021-11-03] MEDS: SUCRALFATE 1 GM/10 ML UDC PO SCH ×5 (00:18→21:30)
[2021-11-03] MEDS: SODIUM CHLORIDE FLUSH 0.9% 10 ML SYRINGE IVP PRN ×2 (00:18→22:48)
[2021-11-03] MEDS: SODIUM CHLORIDE FLUSH 0.9% 10 ML SYRINGE IVP SCH ×4 (00:18→22:48)
[2021-11-03] MEDS: PANTOPRAZOLE 40 MG TABLET PO SCH (05:36)
[2021-11-03] MEDS: PYRIDOSTIGMINE BROMIDE 60 MG PO SCH ×2 (05:37→18:55)
[2021-11-03 06:42] LABS: ALBUMIN 3.6 g/dL (3.2-5.5); ALBUMIN/GLOBULIN RATIO 1.6 (1.0-2.2); BILIRUBIN,TOTAL 0.5 mg/dL (0.2-1.0); CALCIUM 8.1 mg/dL (8.5-10.3); CREATININE 0.6 mg/dL (0.4-1.0); MAGNESIUM 2.5 mg/dL (1.7-2.8); PHOSPHORUS 3.5 mg/dL (2.5-4.6); POTASSIUM 3.6 mmol/L (3.5-5.0); TOTAL PROTEIN 5.8 g/dL (6.7-8.2)
[2021-11-03] MEDS: MAG HYDROX/AL HYDROX/SIMETH 30 ML UDC PO PRN ×3 (06:55→15:49)
[2021-11-03] MEDS: POTASSIUM CHLORIDE 20 MEQ/15 ML UDC PO SCH ×2 (07:44→18:56)
[2021-11-03] MEDS: GI COCKTAIL 120 ML BOTTLE PO PRN ×3 (09:37→21:31)
[2021-11-03] MEDS: GABAPENTIN 100 MG CAPSULE PO PRN ×2 (09:37→18:54)
--- NOTE | 2021-11-03 11:58 | PROVIDER PROGRESS NOTE ---
Subjective - Prog Note Date Prog Note Date: 11/03/21 - Subjective Subjective: She was doing well today up until this afternoon when she developed sudden onset right-sided chest pain after taking her baclofen with water. The nurse had also just flushed the PICC line. She reports the pain is sharp in nature. Her chest is tender to palpation. The pain is nonradiating. Current Medications - Current Medications Current Medications: Active Medications Acetaminophen (Acetaminophen 325 Mg Tablet) 650 mg PO Q4HR PRN PRN Reason: Pain or Fever > 38C (100.4F) Al Hydroxide/Mg Hydroxide (Mag Hydrox/Al Hydrox/Simeth 30 Ml Udc) 30 ml PO Q4HR PRN PRN Reason: INDIGESTION Last Admin: 11/03/21 15:49 Dose: 30 ml Documented by: Alprazolam (Alprazolam 0.25 Mg Tablet) 0.25 mg PO BID PRN PRN Reason: Anxiety Last Admin: 11/02/21 05:25 Dose: 0.25 mg Documented by: Baclofen (Baclofen 10 Mg Tablet) 5 mg PO BID PRN PRN Reason: Spasms Last Admin: 11/03/21 13:21 Dose: 5 mg Documented by: Carboxymethylcellulose (Carboxymethylcellulose Ophth Drops) 1 drops EACHEYE PRN PRN PRN Reason: Dry Eye Last Admin: 11/02/21 09:06 Dose: 1 unit Documented by: Gabapentin (Gabapentin 100 Mg Capsule) 100 mg PO TID PRN PRN Reason: NEUROPATHY Last Admin: 11/03/21 09:37 Dose: 100 mg Documented by: Hydroxyzine Pamoate (Hydroxyzine Pamoate 25 Mg Capsule) 50 mg PO QPM NANCY Last Admin: 11/02/21 21:07 Dose: Not Given Documented by: Multivitamins 10 ml/ Thiamine HCl 100 mg/ Magnesium Sulfate 2 gm/ Folic Acid 1 mg/ TRACE ELEMENTS 1 ml/ Sodium Chloride 1,016.2 mls @ 75 mls/hr IV DAILY@1300 NANCY Last Admin: 11/03/21 13:22 Dose: 75 mls/hr Documented by: Amino Ac/Electrol/Dextrose/Calcium (Clinimix E 5%-15% Solution) 2,000 mls @ 42 mls/hr IV Q24H NANCY; Protocol Last Infusion: 11/03/21 15:51 Dose: 42 mls/hr Documented by: FAT EMULSION/OLIVE/SOY/PHOSPHO (Clinolipid 20% Iv Fat Emulsion) 50 in 250 mls @ 21 mls/hr IV 1900 [facility] Loratadine (Loratadine 10 Mg Tablet) 10 mg PO DAILY PRN PRN Reason: Allergy Symptoms Multi-Ingredient Mouthwash/Gargle (Gi Cocktail 120 Ml Bottle) 10 ml PO Q6H PRN PRN Reason: PAIN Last Admin: 11/03/21 15:49 Dose: 10 ml Documented by: Ondansetron HCl (Ondansetron 4 Mg/2 Ml Vial) 4 mg IVP Q6HR PRN PRN Reason: Nausea / Vomiting Last Admin: 11/01/21 08:32 Dose: 4 mg Documented by: Pantoprazole Sodium (Pantoprazole 40 Mg Tablet) 40 mg PO QDAC [facility] Last Admin: 11/03/21 05:36 Dose: 40 mg Documented by: Patient Own Med: Pyridostigmine [place] 60 Mg Tablet 0.5 each PO BIDAC [facility] Last Admin: 11/03/21 05:37 Dose: 0.5 each Documented by: Potassium Chloride (Potassium Chloride 20 Meq/15 Ml Udc) 20 meq PO BIDWM [facility] Last Admin: 11/03/21 07:44 Dose: 20 meq Documented by: Sodium Chloride (Sodium Chloride Flush 0.9% 10 Ml Syringe) 10 ml IVP PRN PRN PRN Reason: NEEDED PER PROVIDER ORDERS Last Admin: 11/02/21 21:07 Dose: 10 ml Documented by: Sodium Chloride (Sodium Chloride Flush 0.9% 10 Ml Syringe) 10 ml IVP 0100 ,0900,1700 [facility] Last Admin: 11/03/21 15:49 Dose: Not Given Documented by: Sodium Chloride (Sodium Chloride Flush 0.9% 10 Ml Syringe) 20 ml IVP PRN PRN PRN Reason: After Blood Draw Last Admin: 11/03/21 00:18 Dose: 20 ml Documented by: Sucralfate (Sucralfate 1 Gm/10 Ml Udc) 1 gm PO 0700,1100,1600,2200 [facility] Last Admin: 11/03/21 11:32 Dose: 1 gm Documented by: Throat Lozenges (Benzocaine/Menthol Lozenge) 1 lozenge MM Q2HR PRN PRN Reason: Throat pain Last Admin: 10/31/21 19:21 Dose: 1 lozenge Documented by: Tramadol HCl (Tramadol 50 Mg Tablet) 50 mg PO BID PRN PRN Reason: PAIN Last Admin: 11/03/21 14:23 Dose: 50 mg Documented by: Zolpidem Tartrate (Zolpidem 5 Mg Tablet) 10 mg PO QPM PRN PRN Reason: Insomnia Last Admin: 11/02/21 21:07 Dose: 10 mg Documented by: Alprazolam [Xanax] 0.25 mg PO BID PRN 10/31/21 Baclofen [Lioresal] 5 mg PO BID PRN 10/31/21 Fluconazole [Diflucan] 100 mg PO DAILY 10/31/21 Gabapentin [Neurontin] 100 mg PO TID PRN 10/31/21 Pantoprazole [Protonix] 40 mg PO QDAC 10/31/21 Pyridostigmine [place] [Mestinon] 30 mg PO 0700,1100 10/31/21 Sucralfate [Carafate] 1 gm PO AC 10/31/21 Zolpidem [Ambien] 10 mg PO HS PRN 10/31/21 hydrOXYzine HCL [Hydroxyzine HCl] 50 mg PO Q8H PRN 10/31/21 oxyCODONE/ACET 5/325 [Percocet 5 mg/325 mg] 1 each PO DAILY PRN 10/31/21 traMADol [Ultram] 50 mg PO BID PRN 10/31/21 Objective - Vital Signs/Intake & Output Reviewed Vital Signs: Yes Vital Signs: Vital Signs x48h Temp Pulse Resp BP Pulse Ox 11/03/21 08:00 36.7 C 87 18 97/77 98 Intake & Output: Intake & Output 10/31/21 11/01/21 11/02/21 11/03/21 23:59 23:59 23:59 23:59 Intake Total 4176.667 3179.533 2586.617 1541.2 Balance 4176.667 3179.533 2586.617 1541.2 - Objective General Appearance: positive: No acute distress, Alert Eyes Bilateral: positive: Normal inspection, Conjunctivae nml ENT: positive: ENT inspection nml Neck: positive: Nml inspection Respiratory: positive: No respiratory distress. negative: Chest non-tender (Chest is tender to palpation over the right chest wall.), Wheezes, Rales Cardiovascular: positive: Regular rate & rhythm, No murmur. negative: Tachycardia Abdomen: positive: Nml bowel sounds, Tenderness (Right upper quadrant tenderness.). negative: Guarding, Rebound Skin: positive: Warm, Dry Extremities: positive: No pedal edema Neurologic/Psychiatric: negative: Disoriented to person, Disoriented to place - Lab Results Fish Bones: 10/31/21 05:42 11/03/21 13:51 Other Labs: Lab Results x24hrs 11/03/21 11/03/21 11/03/21 Range/Units 11:47 07:57 06:23 Sodium 135 (135-145) mmol/L Potassium 3.6 (3.5-5.0) mmol/L Chloride 100 L (101-111) mmol/L Carbon Dioxide 28 (21-32) mmol/L Anion Gap 7.0 (6-13) BUN 8 (6-20) mg/dL Creatinine 0.6 (0.4-1.0) mg/dL Estimated GFR (MDRD) 100 (>89) Glucose 109 H (70-100) mg/dL POC Whole Bld Glucose 112 H 96 (70 - 100) mg/dL Calcium 8.1 L (8.5-10.3) mg/dL Phosphorus 3.5 (2.5-4.6) mg/dL Magnesium 2.5 (1.7-2.8) mg/dL Total Bilirubin 0.5 (0.2-1.0) mg/dL AST 38 (10-42) IU/L ALT 35 (10-60) IU/L Alkaline Phosphatase 28 L (42-121) IU/L Total Protein 5.8 L (6.7-8.2) g/dL Albumin 3.6 (3.2-5.5) g/dL Globulin 2.2 (2.1-4.2) g/dL Albumin/Globulin Ratio 1.6 (1.0-2.2) Prealbumin 16 L (18-45) mg/dL Triglycerides 191 H ( - 149) mg/dL 11/02/21 11/02/21 11/02/21 Range/Units 22:00 21:13 16:34 Sodium 136 (135-145) mmol/L Potassium 3.4 L (3.5-5.0) mmol/L Chloride 103 (101-111) mmol/L Carbon Dioxide 27 (21-32) mmol/L Anion Gap 6.0 (6-13) BUN 8 (6-20) mg/dL Creatinine 0.6 (0.4-1.0) mg/dL Estimated GFR (MDRD) 100 (>89) Glucose 123 H (70-100) mg/dL POC Whole Bld Glucose 95 112 H (70 - 100) mg/dL Calcium 8.1 L (8.5-10.3) mg/dL Phosphorus 3.2 (2.5-4.6) mg/dL Magnesium 2.8 (1.7-2.8) mg/dL Total Bilirubin (0.2-1.0) mg/dL AST (10-42) IU/L ALT (10-60) IU/L Alkaline Phosphatase (42-121) IU/L Total Protein (6.7-8.2) g/dL Albumin (3.2-5.5) g/dL Globulin (2.1-4.2) g/dL Albumin/Globulin Ratio (1.0-2.2) Prealbumin (18-45) mg/dL Triglycerides ( - 149) mg/dL 11/02/21 11/02/21 Range/Units 13:52 11:58 Sodium 137 (135-145) mmol/L Potassium 3.5 (3.5-5.0) mmol/L Chloride 103 (101-111) mmol/L Carbon Dioxide 29 (21-32) mmol/L Anion Gap 5.0 L (6-13) BUN 6 (6-20) mg/dL Creatinine 0.6 (0.4-1.0) mg/dL Estimated GFR (MDRD) 100 (>89) Glucose 117 H (70-100) mg/dL POC Whole Bld Glucose 128 H (70 - 100) mg/dL Calcium 8.4 L (8.5-10.3) mg/dL Phosphorus 2.7 (2.5-4.6) mg/dL Magnesium 2.5 (1.7-2.8) mg/dL Total Bilirubin (0.2-1.0) mg/dL AST (10-42) IU/L ALT (10-60) IU/L Alkaline Phosphatase (42-121) IU/L Total Protein (6.7-8.2) g/dL Albumin (3.2-5.5) g/dL Globulin (2.1-4.2) g/dL Albumin/Globulin Ratio (1.0-2.2) Prealbumin (18-45) mg/dL Triglycerides ( - 149) mg/dL Assessment/Plan - Problem List (1) Failure to thrive Impression: Secondary to decreased oral intake due to ongoing nausea and vomiting secondary to the large hepatic cyst likely causing partial gastric outlet obstruction. She has been tolerating TPN without evidence of electrolyte abnormalities. We are looking to discharge her once we can set up outpatient TPN. Qualifiers: Failure to thrive age range: in adult Qualified Code(s): R62.7 - Adult failure to thrive (2) Chest pain Impression: There is low suspicion for ACS with her chest pain. Her EKG reveals sinus rhythm without evidence of ischemia. Limits. Her chest pain is reproducible and I suspect may be costochondritis or potentially due to esophageal spasm. It has now resolved. We will continue to monitor (3) Severe protein-calorie malnutrition Impression: She has severe protein calorie malnutrition secondary to decreased oral intake due to her ongoing nausea/vomiting. She is tolerating TPN and the plan to discharge her home on TPN until she can follow-up with GI to address the hepatic cyst. (4) Hepatic cyst Impression: CT does reveal a large hepatic cyst and the concern is that this may potentially be causing partial obstruction. The emergency department physician did speak with GI at [place] and they will relay this to their surgeons. The plan is to set up the patient with TPN at this time and have her follow-up on outpatient basis to have this addressed. (5) GERD (gastroesophageal reflux disease) Impression: Ongoing but stable. She reportedly had an EGD which was unremarkable. We will continue with Carafate and GI cocktail as needed. Continue Protonix. Liquid diet as tolerated. (6) Partial gastric outlet obstruction Impression: We are concerned that the hepatic cyst may be causing partial gastric outlet obstruction causing her to have the ongoing nausea and vomiting. This will be addressed by general surgery on outpatient basis.
[2021-11-03] MEDS: MAGNESIUM SULFATE IV SCH ×6 (13:22)
[2021-11-03] MEDS: FOLIC ACID IV SCH ×6 (13:22)
[2021-11-03] MEDS: MULTIVITAMIN IV SCH ×6 (13:22)
[2021-11-03] MEDS: THIAMINE IV SCH ×6 (13:22)
[2021-11-03] MEDS: [UNRECOGNIZED DRUG - OTHER] IV SCH ×6 (13:22)
--- NOTE | 2021-11-03 14:03 | XRAY Report ---
PROCEDURE: Chest 1 View X-Ray INDICATIONS: Chest pain after PICC line flushing. TECHNIQUE: One view of the chest was acquired. COMPARISON: None FINDINGS: Surgical changes and devices: Left arm PICC line appears well positioned Lungs and pleura: No pleural effusions or pneumothorax. Lungs are clear. Mediastinum: Mediastinal contours appear normal. Heart size is normal. Bones and chest wall: No suspicious bony lesions. Overlying soft tissues appear unremarkable. IMPRESSION: 1. Left arm PICC line is well-positioned. 2. No acute cardiopulmonary abnormality. Reviewed by: Jorge Luis Hernandez on 11/03/2021 1:02 PM [facility] Approved by: Jorge Luis Hernandez on 11/03/2021 1:02 PM [facility] Station ID: [id number]
[2021-11-03 14:10] LABS: CALCIUM 8.6 mg/dL (8.5-10.3); CREATININE 0.6 mg/dL (0.4-1.0); MAGNESIUM 2.5 mg/dL (1.7-2.8); PHOSPHORUS 3.3 mg/dL (2.5-4.6)
[2021-11-03] MEDS: traMADol 50 MG TABLET PO PRN (14:23)
[2021-11-03] MEDS ORDERED: SODIUM CHLORIDE INHALATION 3 ML NEB ONE (16:42)
[2021-11-03] MEDS: ALPRAZolam 0.25 MG TABLET PO PRN (18:55)
[2021-11-03] MEDS: TPN (CLINIMIX E 5/15) 2,000 ML IV SCH (18:57)
[2021-11-03] MEDS: SOY IV SCH (18:58)
[2021-11-03] MEDS: OLIVE IV SCH (18:58)
[2021-11-03] MEDS: PHOSPHO IV SCH (18:58)
[2021-11-03] MEDS: FAT EMULSION IV SCH (18:58)
[2021-11-03] MEDS: hydrOXYzine PAMOATE 25 MG CAPSULE PO SCH (21:30)
[2021-11-03] MEDS: ZOLPIDEM 5 MG TABLET PO PRN (21:30)
[2021-11-03 23:13] LABS: CALCIUM 8.3 mg/dL (8.5-10.3); CREATININE 0.6 mg/dL (0.4-1.0); MAGNESIUM 2.8 mg/dL (1.7-2.8); PHOSPHORUS 3.9 mg/dL (2.5-4.6); POTASSIUM 3.8 mmol/L (3.5-5.0)
[2021-11-04] MEDS: traMADol 50 MG TABLET PO PRN ×2 (02:30→17:21)
[2021-11-04] MEDS: MAG HYDROX/AL HYDROX/SIMETH 30 ML UDC PO PRN ×4 (02:30→19:05)
[2021-11-04] MEDS: GABAPENTIN 100 MG CAPSULE PO PRN ×2 (05:53→13:31)
[2021-11-04] MEDS: SUCRALFATE 1 GM/10 ML UDC PO SCH ×4 (06:24→21:22)
[2021-11-04] MEDS: PANTOPRAZOLE 40 MG TABLET PO SCH (06:24)
[2021-11-04] MEDS: PYRIDOSTIGMINE BROMIDE 60 MG PO SCH ×2 (06:25→15:42)
[2021-11-04 06:32] LABS: CALCIUM 8.3 mg/dL (8.5-10.3); CREATININE 0.5 mg/dL (0.4-1.0); MAGNESIUM 2.6 mg/dL (1.7-2.8); PHOSPHORUS 3.5 mg/dL (2.5-4.6); POTASSIUM 3.5 mmol/L (3.5-5.0)
[2021-11-04] MEDS: ALPRAZolam 0.25 MG TABLET PO PRN (07:47)
[2021-11-04] MEDS: POTASSIUM CHLORIDE 20 MEQ/15 ML UDC PO SCH ×2 (07:47→17:23)
[2021-11-04] MEDS: SODIUM CHLORIDE FLUSH 0.9% 10 ML SYRINGE IVP SCH ×2 (09:45→18:38)
[2021-11-04] MEDS: GI COCKTAIL 120 ML BOTTLE PO PRN ×2 (09:59→19:05)
[2021-11-04] MEDS: MULTIVITAMIN IV SCH ×6 (13:54)
[2021-11-04] MEDS: FOLIC ACID IV SCH ×6 (13:54)
[2021-11-04] MEDS: THIAMINE IV SCH ×6 (13:54)
[2021-11-04] MEDS: [UNRECOGNIZED DRUG - OTHER] IV SCH ×6 (13:54)
[2021-11-04] MEDS: MAGNESIUM SULFATE IV SCH ×6 (13:54)
--- NOTE | 2021-11-04 19:02 | PROVIDER PROGRESS NOTE ---
Assessment/Plan - Problem List (1) Failure to thrive Qualifiers: Failure to thrive age range: in adult Qualified Code(s): R62.7 - Adult failure to thrive Assessment/Plan: Due to decreased oral intake related to nausea and vomiting. Patient has a large hepatic cyst causing partial gastric outlet obstruction. Tolerating TPN. However patient reports frequent loose stools. Anticipating discharge on TPN on 11/05/2021. (2) Chest pain Assessment/Plan: EKG and troponin were unremarkable. Chest pain is reproducible. Suspect costochondritis or possible due to esophageal spasm. Mylanta, GI cocktail, gabapentin, tramadol ordered as needed (3) Severe protein-calorie malnutrition Assessment/Plan: Secondary to decreased oral intake and ongoing nausea/vomiting. Patient tolerating TPN. Anticipating discharge home with TPN. (4) Hepatic cyst Assessment/Plan: Patient is to follow-up with GI in the outpatient setting. Appointment scheduled for 11/11/21 (5) GERD (gastroesophageal reflux disease) Assessment/Plan: On Carafate and GI cocktail as needed. On Protonix. Liquid diet as tolerated. (6) Partial gastric outlet obstruction Assessment/Plan: It is suspected that hepatic cyst is causing partial gastric outlet obstruction which in turn is contributing to her nausea and vomiting. She is to follow-up with general surgery in the outpatient setting. - Current Meds Current Meds: Current Medications Generic Name Dose Route Start Last Admin Trade Name Freq PRN Reason Stop Dose Admin Al Hydroxide/Mg Hydroxide 30 ml 10/31/21 08:25 11/04/21 14:45 Mag Hydrox/Al Hydrox/Simeth 30 Ml Udc PO 30 ml Q4HR PRN Administration INDIGESTION Alprazolam 0.25 mg 11/01/21 21:49 11/04/21 07:47 Alprazolam 0.25 Mg Tablet PO 0.25 mg BID PRN Administration Anxiety Baclofen 5 mg 11/01/21 09:28 11/03/21 13:21 Baclofen 10 Mg Tablet PO 5 mg BID PRN Administration Spasms Carboxymethylcellulose 1 drops 10/31/21 11:55 11/02/21 09:06 Carboxymethylcellulose Ophth Drops EACHEYE 1 unit PRN PRN Administration Dry Eye Gabapentin 100 mg 11/01/21 09:28 11/04/21 13:31 Gabapentin 100 Mg Capsule PO 100 mg TID PRN Administration NEUROPATHY Hydroxyzine Pamoate 50 mg 10/31/21 21:00 11/03/21 21:30 Hydroxyzine Pamoate 25 Mg Capsule PO 50 mg QPM [facility] Administration Multivitamins 10 ml/ Thiamine 1,016.2 mls @ 75 mls/hr 10/31/21 13:00 11/04/21 13:54 HCl 100 mg/ Magnesium Sulfate IV 75 mls/hr 2 gm/ Folic Acid 1 mg/ TRACE DAILY@1300 [facility] Administration ELEMENTS 1 ml/ Sodium Chloride Amino Ac/Electrol/Dextrose/Calcium 2,000 mls @ 42 mls/hr 10/31/21 19:00 18:57 Clinimix E 5%-15% Solution IV 42 mls/hr Q24H [facility] Administration Protocol FAT EMULSION/OLIVE/SOY/PHOSPHO 50 in 250 mls @ 21 mls/hr 11/03/21 19:00 11/04/21 07:27 Clinolipid 20% Iv Fat Emulsion IV Infused 1900 [facility] Infusion Multi-Ingredient Mouthwash/Gargle 10 ml 10/31/21 07:14 11/04/21 09:59 Gi Cocktail 120 Ml Bottle PO 10 ml Q6H PRN Administration PAIN Ondansetron HCl 4 mg 10/30/21 20:36 11/01/21 08:32 Ondansetron 4 Mg/2 Ml Vial IVP 4 mg Q6HR PRN Administration Nausea / Vomiting Pantoprazole Sodium 40 mg 10/31/21 08:00 11/04/21 06:24 Pantoprazole 40 Mg Tablet PO 40 mg QDAC [facility] Administration Patient Own Med: 0.5 each 11/02/21 16:00 11/04/21 15:42 Pyridostigmine PO Not Given [place] 60 Mg Tablet BIDAC [facility] Potassium Chloride 20 meq 11/02/21 08:00 11/04/21 17:23 Potassium Chloride 20 Meq/15 Ml Udc PO 20 meq BIDWM [facility] Administration Sodium Chloride 10 ml 10/30/21 20:36 11/02/21 21:07 Sodium Chloride Flush 0.9% 10 Ml Syringe IVP 10 ml PRN PRN Administration NEEDED PER PROVIDER ORDERS Sodium Chloride 10 ml 10/31/21 01:00 11/04/21 18:38 Sodium Chloride Flush 0.9% 10 Ml Syringe IVP Not Given 0100,0900,1700 [facility] Sodium Chloride 20 ml 10/31/21 12:20 11/03/21 22:48 Sodium Chloride Flush 0.9% 10 Ml Syringe IVP 20 ml PRN PRN Administration After Blood Draw Sucralfate 1 gm 10/31/21 10:00 11/04/21 15:45 Sucralfate 1 Gm/10 Ml Udc PO 1 gm 0700,1100,1600,2200 [facility] Administration Throat Lozenges 1 lozenge 10/31/21 14:27 10/31/21 19:21 Benzocaine/Menthol Lozenge MM 1 lozenge Q2HR PRN Administration Throat pain Tramadol HCl 50 mg 11/01/21 09:28 11/04/21 17:21 Tramadol 50 Mg Tablet PO 50 mg BID PRN Administration PAIN Zolpidem Tartrate 10 mg 10/30/21 22:23 11/03/21 21:30 Zolpidem 5 Mg Tablet PO 10 mg QPM PRN Administration Insomnia - Lab Result Fish Bone Diagrams: 10/31/21 05:42 11/04/21 05:30 Subjective - Subjective Patient Reports: Other (Resting comfortably in bed. Reports esophageal spasms when she attempts to ingest anything. Managing with as needed medications. Denies difficulty in breathing.) Objective Vital Signs: Vital Signs - 24 hr 11/03/21 11/04/21 11/04/21 23:47 07:41 15:49 Temperature 36.5 C 36.9 C 36.5 C Heart Rate [ 67 Brachial] Heart Rate [ 83 78 Radial] Respiratory 16 18 Rate Blood Pressure 123/88 H [Right Brachial artery] Blood Pressure 110/76 122/87 H [Right Radial artery] O2 Saturation 100 100 100 Oxygen O2 Source Room air I&O (Last 24 Hrs): Intake and Output Totals x24h 11/02/21 11/03/21 11/04/21 23:59 23:59 23:59 Intake Total 2586.617 2583.9 1706.2 Balance 2586.617 2583.9 1706.2 General: Alert, Oriented x3, Moderate distress HEENT: PERRLA, EOMI Neck: Supple, No JVD Neuro: Alert, Non Focal, Oriented Times 3 Cardiovascular: Regular rate, No murmurs Respiratory: Chest non-tender, No respiratory distress, Breath sounds nml Abdomen: Soft, Other (Hyperresonant bowel sounds.) Extremities: No clubbing, No cyanosis, No edema Skin: No rashes, No breakdown, No significant lesion - Results Results: Laboratory Results WBC 3.3 x10^3/uL (4.8-10.8) L 10/31/21 05:42 RBC 4.07 10^6/uL (4.20-5.40) L 10/31/21 05:42 Hgb 11.9 g/dL (12.0-16.0) L 10/31/21 05:42 Hct 36.1 % (37.0-47.0) L 10/31/21 05:42 MCV 88.7 fL (81.0-99.0) 10/31/21 05:42 MCH 29.2 pg (27.0-31.0) 10/31/21 05:42 MCHC 33.0 g/dL (32.0-36.0) 10/31/21 05:42 RDW 14.7 % (12.0-15.0) 10/31/21 05:42 Plt Count 207 10^3/uL (130-450) 10/31/21 05:42 MPV 10.2 fL (7.9-10.8) 10/31/21 05:42 Neut # (Auto) 1.9 10^3/uL (1.5-6.6) 10/31/21 05:42 Lymph # (Auto) 1.0 10^3/uL (1.5-3.5) L 10/31/21 05:42 [place] # (Auto) 0.3 10^3/uL (0.0-1.0) 10/31/21 05:42 Eos # (Auto) 0.0 10^3/uL (0.0-0.7) 10/31/21 05:42 Baso # (Auto) 0.0 10^3/uL (0.0-0.1) 10/31/21 05:42 Absolute Nucleated RBC 0.00 x10^3/uL 10/31/21 05:42 Nucleated RBC % 0.0 /100WBC 10/31/21 05:42 PT 14.0 secs (9.9-12.6) H 10/31/21 13:05 INR 1.3 (0.8-1.2) H 10/31/21 13:05 APTT 28.3 secs (24.9-33.3) 10/31/21 13:05 Sodium 140 mmol/L (135-145) 11/04/21 05:30 Potassium 3.5 mmol/L (3.5-5.0) 11/04/21 05:30 Chloride 105 mmol/L (101-111) 11/04/21 05:30 Carbon Dioxide 28 mmol/L (21-32) 11/04/21 05:30 Anion Gap 7.0 (6-13) 11/04/21 05:30 BUN 7 mg/dL (6-20) 11/04/21 05:30 Creatinine 0.5 mg/dL (0.4-1.0) 11/04/21 05:30 Estimated GFR (MDRD) 123 (>89) 11/04/21 05:30 Glucose 114 mg/dL (70-100) H 11/04/21 05:30 POC Whole Bld Glucose 99 mg/dL (70 - 100) 11/04/21 16:29 Calcium 8.3 mg/dL (8.5-10.3) L 11/04/21 05:30 Phosphorus 3.5 mg/dL (2.5-4.6) 11/04/21 05:30 Magnesium 2.6 mg/dL (1.7-2.8) 11/04/21 05:30 Total Bilirubin 0.5 mg/dL (0.2-1.0) 11/03/21 06:23 AST 38 IU/L (10-42) 11/03/21 06:23 ALT 35 IU/L (10-60) 11/03/21 06:23 Alkaline Phosphatase 28 IU/L (42-121) L 11/03/21 06:23 Troponin I High Sens 2.9 ng/L (2.3-14.8) 11/03/21 16:04 B-Natriuretic Peptide 77 pg/mL (5-100) 11/03/21 13:51 Total Protein 5.8 g/dL (6.7-8.2) L 11/03/21 06:23 Albumin 3.6 g/dL (3.2-5.5) 11/03/21 06:23 Globulin 2.2 g/dL (2.1-4.2) 11/03/21 06:23 Albumin/Globulin Ratio 1.6 (1.0-2.2) 11/03/21 06:23 Prealbumin 16 mg/dL (18-45) L 11/03/21 06:23 Triglycerides 191 mg/dL (-149) H 11/03/21 06:23 Lipase 49 U/L (22-51) 10/30/21 11:10 Urine Color YELLOW 10/30/21 14:49 Urine Clarity HAZY (CLEAR) 10/30/21 14:49 Urine pH 6.5 PH (5.0-7.5) 10/30/21 14:49 Ur Specific [place] 1.020 (1.002-1.030) 10/30/21 14:49 Urine Protein NEGATIVE mg/dL (NEGATIVE) 10/30/21 14:49 Urine Glucose (UA) NEGATIVE mg/dL (NEGATIVE) 10/30/21 14:49 Urine Ketones 15 mg/dL (NEGATIVE) H 10/30/21 14:49 Urine Occult Blood NEGATIVE (NEGATIVE) 10/30/21 14:49 Urine Nitrite POSITIVE (NEGATIVE) H 10/30/21 14:49 Urine Bilirubin NEGATIVE (NEGATIVE) 10/30/21 14:49 Urine Urobilinogen 2 E.U./dL (NORMAL) H 10/30/21 14:49 Ur Leukocyte Esterase NEGATIVE (NEGATIVE) 10/30/21 14:49 Urine RBC 0-5 /HPF (0-5) 10/30/21 14:49 Urine WBC 4-5 /HPF (0-5) 10/30/21 14:49 Ur Squamous Epith Cells FEW Squamous (<= Few) 10/30/21 14:49 Urine Bacteria Many /HPF (None Seen) H 10/30/21 14:49 Urine Mucus Few Strands 10/30/21 14:49 Ur Microscopic Review INDICATED 10/30/21 14:49 Urine Culture Comments INDICATED 10/30/21 14:49 Nasal Adenovirus (PCR) NOT DETECTED 10/30/21 20:41 Nasal B. parapertussis DNA (PCR) NOT DETECTED 10/30/21 20:41 Nasal Coronavir 229E PCR NOT DETECTED 10/30/21 20:41 Nasal Coronavir HKU1 PCR NOT DETECTED 10/30/21 20:41 Nasal Coronavir NL63 PCR NOT DETECTED 10/30/21 20:41 Nasal Coronavir OC43 PCR NOT DETECTED 10/30/21 20:41 Nasal Enterovir/Rhinovir PCR NOT DETECTED 10/30/21 20:41 Nasal Influenza B PCR NOT DETECTED 10/30/21 20:41 Nasal Influenza A PCR NOT DETECTED 10/30/21 20:41 Nasal Parainfluen 1 PCR NOT DETECTED 10/30/21 20:41 Nasal Parainfluen 2 PCR NOT DETECTED 10/30/21 20:41 Nasal Parainfluen 3 PCR NOT DETECTED 10/30/21 20:41 Nasal Parainfluen 4 PCR NOT DETECTED 10/30/21 20:41 Nasal RSV (PCR) NOT DETECTED 10/30/21 20:41 Nasal B.pertussis DNA PCR NOT DETECTED 10/30/21 20:41 Nasal C.pneumoniae (PCR) NOT DETECTED 10/30/21 20:41 [place] Human Metapneumo PCR NOT DETECTED 10/30/21 20:41 Nasal M.pneumoniae (PCR) NOT DETECTED 10/30/21 20:41 Nasal SARS-CoV-2 (PCR) NOT DETECTED 10/30/21 20:41 ABX Reporting Has patient been on IV antibiotics over the past 48 hours?: No
[2021-11-04] MEDS: FAT EMULSION IV SCH (19:09)
[2021-11-04] MEDS: TPN (CLINIMIX E 5/15) 2,000 ML IV SCH (19:09)
[2021-11-04] MEDS: OLIVE IV SCH (19:09)
[2021-11-04] MEDS: SOY IV SCH (19:09)
[2021-11-04] MEDS: PHOSPHO IV SCH (19:09)
[2021-11-04] MEDS: hydrOXYzine PAMOATE 25 MG CAPSULE PO SCH (21:21)
[2021-11-04] MEDS: ZOLPIDEM 5 MG TABLET PO PRN (21:21)
[2021-11-05] MEDS: SODIUM CHLORIDE FLUSH 0.9% 10 ML SYRINGE IVP SCH ×4 (02:36→23:41)
[2021-11-05] MEDS: GI COCKTAIL 120 ML BOTTLE PO PRN ×2 (02:54→14:16)
[2021-11-05] MEDS: GABAPENTIN 100 MG CAPSULE PO PRN ×3 (02:55→16:23)
[2021-11-05] MEDS: MAG HYDROX/AL HYDROX/SIMETH 30 ML UDC PO PRN ×3 (06:12→16:23)
[2021-11-05] MEDS: SUCRALFATE 1 GM/10 ML UDC PO SCH ×4 (06:12→21:09)
[2021-11-05] MEDS: PYRIDOSTIGMINE BROMIDE 60 MG PO SCH ×2 (06:13→16:14)
[2021-11-05] MEDS: PANTOPRAZOLE 40 MG TABLET PO SCH (06:19)
[2021-11-05] MEDS: SODIUM CHLORIDE FLUSH 0.9% 10 ML SYRINGE IVP PRN (06:19)
[2021-11-05 07:08] LABS: ALBUMIN 3.4 g/dL (3.2-5.5); ALBUMIN/GLOBULIN RATIO 1.4 (1.0-2.2); ALKALINE PHOSPHATASE 29 IU/L (42-121); ALT ALANINE AMINOTRANSFERASE 58 IU/L (10-60); AST ASPARTATE AMINOTRANSFERASE 55 IU/L (10-42); BILIRUBIN,TOTAL 0.3 mg/dL (0.2-1.0); BUN - BLOOD UREA NITROGEN 10 mg/dL (6-20); CALCIUM 8.4 mg/dL (8.5-10.3); CARBON DIOXIDE - CO2 26 mmol/L (21-32); CHLORIDE 101 mmol/L (101-111); CREATININE 0.5 mg/dL (0.4-1.0); GFR - MDRD 123 (>89); GLUCOSE 106 mg/dL (70-100); MAGNESIUM 2.5 mg/dL (1.7-2.8); PHOSPHORUS 3.6 mg/dL (2.5-4.6); POTASSIUM 3.7 mmol/L (3.5-5.0); PREALBUMIN 24 mg/dL (18-45); SODIUM 136 mmol/L (135-145); TOTAL PROTEIN 5.8 g/dL (6.7-8.2); TRIGLYCERIDES 491 mg/dL
[2021-11-05 07:30] LABS: LDL CHOLESTEROL,DIRECT 77 mg/dL
[2021-11-05] MEDS: traMADol 50 MG TABLET PO PRN ×2 (07:36→20:00)
[2021-11-05 08:06] LABS: BASOPHILS % (AUTO) 0.7 %; EOSINOPHILS # (AUTO) 0.1 10^3/uL (0.0-0.7); HGB - HEMOGLOBIN 12.3 g/dL (12.0-16.0); LYMPHOCYTES # (AUTO) 0.8 10^3/uL (1.5-3.5); LYMPHOCYTES % (AUTO) 19.3 %; MEAN CORPUSCULAR HEMOGLOBIN 30.4 pg (27.0-31.0); MEAN CORPUSCULAR HGB CONC 34.2 g/dL (32.0-36.0); MEAN CORPUSCULAR VOLUME 88.9 fL (81.0-99.0); MEAN PLATELET VOLUME 11.2 fL (7.9-10.8); MONOCYTES # (AUTO) 0.3 10^3/uL (0.0-1.0); MONOCYTES % (AUTO) 7.7 %; NEUTROPHILS # (AUTO) 2.8 10^3/uL (1.5-6.6); NEUTROPHILS % (AUTO) 69.1 %; PLT - PLATELET COUNT 192 10^3/uL (130-450); RED BLOOD COUNT 4.05 10^6/uL (4.20-5.40); RED CELL DISTRIBUTION WIDTH 14.6 % (12.0-15.0)
[2021-11-05] MEDS: POTASSIUM CHLORIDE 20 MEQ/15 ML UDC PO SCH ×2 (09:31→17:01)
[2021-11-05] MEDS ORDERED: LOPERAMIDE 2 MG CAPSULE PO PRN (10:54)
[2021-11-05] MEDS: LOPERAMIDE 2 MG CAPSULE PO PRN ×2 (11:30→14:16)
--- NOTE | 2021-11-05 13:34 | PROVIDER PROGRESS NOTE ---
Assessment/Plan - Problem List (1) Failure to thrive Qualifiers: Failure to thrive age range: in adult Qualified Code(s): R62.7 - Adult failure to thrive Assessment/Plan: 10/06 pt is on TPN by PICC line for 4 days. pt seem tolerated the TPN. now pt is pending for infusion company setting up for pt at home for TPN infusion. donor services specialist and social work msw was consulted for setting up for pt. pt has hx of significant decreased oral intake, secondary to Nausea/vomiting, which is likely caused by gastric outlet obstruction and secondary to large hepatic cyst (2) Chest pain Impression: 11/05 pt denies chest pain on today. suspect may be costochondritis or potentially due to esophageal spasm in the past. (3) Severe protein-calorie malnutrition Impression: 11/05 pt tolerated TPN. She has severe protein calorie malnutrition secondary to decreased oral intake due to her ongoing nausea/vomiting. (4) Hepatic cyst Impression: 11/05 CT reveal a large hepatic cyst and the concern is that this may potentially be causing partial obstruction. pt has appointment to see her GI on 11/11/21 (5) GERD (gastroesophageal reflux disease) Impression: 11/05 stable. She reportedly had an EGD which was unremarkable. continue with protonix, Carafate and GI cocktail as needed. (6) Partial gastric outlet obstruction Impression: 11/05 pt will see GI on 11/11/21. it is likely secondary to the hepatic cyst. This will be addressed by general surgery on outpatient basis. - Current Meds Current Meds: Current Medications Generic Name Dose Route Start Last Admin Trade Name Freq PRN Reason Stop Dose Admin Al Hydroxide/Mg Hydroxide 30 ml 10/31/21 08:25 11/05/21 09:32 Mag Hydrox/Al Hydrox/Simeth 30 Ml Udc PO 30 ml Q4HR PRN Administration INDIGESTION Alprazolam 0.25 mg 11/01/21 21:49 11/04/21 07:47 Alprazolam 0.25 Mg Tablet PO 0.25 mg BID PRN Administration Anxiety Baclofen 5 mg 11/01/21 09:28 11/03/21 13:21 Baclofen 10 Mg Tablet PO 5 mg BID PRN Administration Spasms Carboxymethylcellulose 1 drops 10/31/21 11:55 11/02/21 09:06 Carboxymethylcellulose Ophth Drops EACHEYE 1 unit PRN PRN Administration Dry Eye Gabapentin 100 mg 11/01/21 09:28 11/05/21 11:36 Gabapentin 100 Mg Capsule PO 100 mg TID PRN Administration NEUROPATHY Hydroxyzine Pamoate 50 mg 10/31/21 21:00 11/04/21 21:21 Hydroxyzine Pamoate 25 Mg Capsule PO 50 mg QPM [facility] Administration Multivitamins 10 ml/ Thiamine 1,016.2 mls @ 75 mls/hr 10/31/21 13:00 11/05/21 07:05 HCl 100 mg/ Magnesium Sulfate IV Infused 2 gm/ Folic Acid 1 mg/ TRACE DAILY@1300 [facility] Infusion ELEMENTS 1 ml/ Sodium Chloride Amino Ac/Electrol/Dextrose/Calcium 2,000 mls @ 42 mls/hr 10/31/21 19:00 19:09 Clinimix E 5%-15% Solution IV 42 mls/hr Q24H [facility] Administration Protocol FAT EMULSION/OLIVE/SOY/PHOSPHO 50 in 250 mls @ 21 mls/hr 11/03/21 19:00 11/05/21 07:04 Clinolipid 20% Iv Fat Emulsion IV Infused 1900 [facility] Infusion Loperamide HCl 2 mg 11/05/21 11:13 11/05/21 11:30 Loperamide 2 Mg Capsule PO 2 mg QID PRN Administration Diarrhea Multi-Ingredient Mouthwash/Gargle 10 ml 10/31/21 07:14 11/05/21 02:54 Gi Cocktail 120 Ml Bottle PO 10 ml Q6H PRN Administration PAIN Ondansetron HCl 4 mg 10/30/21 20:36 11/01/21 08:32 Ondansetron 4 Mg/2 Ml Vial IVP 4 mg Q6HR PRN Administration Nausea / Vomiting Pantoprazole Sodium 40 mg 10/31/21 08:00 11/05/21 06:19 Pantoprazole 40 Mg Tablet PO 40 mg QDAC [facility] Administration Patient Own Med: 0.5 each 11/02/21 16:00 11/05/21 06:13 Pyridostigmine PO 0.5 each [place] 60 Mg Tablet BIDAC [facility] Administration Potassium Chloride 20 meq 11/02/21 08:00 11/05/21 09:31 Potassium Chloride 20 Meq/15 Ml Udc PO 20 meq BIDWM [facility] Administration Sodium Chloride 10 ml 10/30/21 20:36 11/05/21 06:19 Sodium Chloride Flush 0.9% 10 Ml Syringe IVP 50 ml PRN PRN Administration NEEDED PER PROVIDER ORDERS Sodium Chloride 10 ml 10/31/21 01:00 11/05/21 09:32 Sodium Chloride Flush 0.9% 10 Ml Syringe IVP 10 ml 0100,0900,1700 [facility] Administration Sodium Chloride 20 ml 10/31/21 12:20 11/03/21 22:48 Sodium Chloride Flush 0.9% 10 Ml Syringe IVP 20 ml PRN PRN Administration After Blood Draw Sucralfate 1 gm 10/31/21 10:00 11/05/21 11:30 Sucralfate 1 Gm/10 Ml Udc PO 1 gm 0700,1100,1600,2200 [facility] Administration Throat Lozenges 1 lozenge 10/31/21 14:27 10/31/21 19:21 Benzocaine/Menthol Lozenge MM 1 lozenge Q2HR PRN Administration Throat pain Tramadol HCl 50 mg 11/01/21 09:28 11/05/21 07:36 Tramadol 50 Mg Tablet PO 50 mg BID PRN Administration PAIN Zolpidem Tartrate 10 mg 10/30/21 22:23 11/04/21 21:21 Zolpidem 5 Mg Tablet PO 10 mg QPM PRN Administration Insomnia - Lab Result Fish Bone Diagrams: 11/05/21 06:13 11/05/21 06:13 - Additional Planning My Orders: My Active Orders 11/05/21 11:13 Loperamide [Imodium] 2 mg PO QID PRN 11/05/21 Lunch Clear Liquid Diet [DIET] Subjective - Subjective Patient Reports: Resting Comfortably Objective Vital Signs: Vital Signs - 24 hr 11/04/21 11/05/21 11/05/21 15:49 01:00 07:30 Temperature 36.5 C 36.7 C 36.9 C Heart Rate [ 78 78 88 Radial] Respiratory 18 14 16 Rate Blood Pressure 116/77 111/81 H [Right Brachial artery] Blood Pressure 122/87 H [Right Radial artery] O2 Saturation 100 100 96 Oxygen O2 Source Room air I&O (Last 24 Hrs): Intake and Output Totals x24h 11/03/21 11/04/21 11/05/21 23:59 23:59 23:59 Intake Total 2583.9 3112.6 1746.2 Output Total 4 Balance 2583.9 3108.6 1746.2 General: Alert, Oriented x3, Cooperative, No acute distress HEENT: Atraumatic Neck: Supple Lymphatic: no adenopathy Neuro: Alert, Non Focal, Oriented Times 3 Cardiovascular: Regular rate, Normal S1, Normal S2 Respiratory: Chest non-tender, No respiratory distress Abdomen: Normal bowel sounds, Soft Extremities: Normal pulses - Results Results: Laboratory Results WBC 4.0 x10^3/uL (4.8-10.8) L 11/05/21 06:13 RBC 4.05 10^6/uL (4.20-5.40) L 11/05/21 06:13 Hgb 12.3 g/dL (12.0-16.0) 11/05/21 06:13 Hct 36.0 % (37.0-47.0) L 11/05/21 06:13 MCV 88.9 fL (81.0-99.0) 11/05/21 06:13 MCH 30.4 pg (27.0-31.0) 11/05/21 06:13 MCHC 34.2 g/dL (32.0-36.0) 11/05/21 06:13 RDW 14.6 % (12.0-15.0) 11/05/21 06:13 Plt Count 192 10^3/uL (130-450) 11/05/21 06:13 MPV 11.2 fL (7.9-10.8) H 11/05/21 06:13 Neut # (Auto) 2.8 10^3/uL (1.5-6.6) 11/05/21 06:13 Lymph # (Auto) 0.8 10^3/uL (1.5-3.5) L 11/05/21 06:13 [place] # (Auto) 0.3 10^3/uL (0.0-1.0) 11/05/21 06:13 Eos # (Auto) 0.1 10^3/uL (0.0-0.7) 11/05/21 06:13 Baso # (Auto) 0.0 10^3/uL (0.0-0.1) 11/05/21 06:13 Absolute Nucleated RBC 0.00 x10^3/uL 11/05/21 06:13 Nucleated RBC % 0.0 /100WBC 11/05/21 06:13 PT 14.0 secs (9.9-12.6) H 10/31/21 13:05 INR 1.3 (0.8-1.2) H 10/31/21 13:05 APTT 28.3 secs (24.9-33.3) 10/31/21 13:05 Sodium 136 mmol/L (135-145) 11/05/21 06:13 Potassium 3.7 mmol/L (3.5-5.0) 11/05/21 06:13 Chloride 101 mmol/L (101-111) 11/05/21 06:13 Carbon Dioxide 26 mmol/L (21-32) 11/05/21 06:13 Anion Gap 9.0 (6-13) 11/05/21 06:13 BUN 10 mg/dL (6-20) 11/05/21 06:13 Creatinine 0.5 mg/dL (0.4-1.0) 11/05/21 06:13 Estimated GFR (MDRD) 123 (>89) 11/05/21 06:13 Glucose 106 mg/dL (70-100) H 11/05/21 06:13 POC Whole Bld Glucose 118 mg/dL (70 - 100) H 11/05/21 11:29 Calcium 8.4 mg/dL (8.5-10.3) L 11/05/21 06:13 Phosphorus 3.6 mg/dL (2.5-4.6) 11/05/21 06:13 Magnesium 2.5 mg/dL (1.7-2.8) 11/05/21 06:13 Total Bilirubin 0.3 mg/dL (0.2-1.0) 11/05/21 06:13 AST 55 IU/L (10-42) H 11/05/21 06:13 ALT 58 IU/L (10-60) 11/05/21 06:13 Alkaline Phosphatase 29 IU/L (42-121) L 11/05/21 06:13 Troponin I High Sens 2.9 ng/L (2.3-14.8) 11/03/21 16:04 B-Natriuretic Peptide 77 pg/mL (5-100) 11/03/21 13:51 Total Protein 5.8 g/dL (6.7-8.2) L 11/05/21 06:13 Albumin 3.4 g/dL (3.2-5.5) 11/05/21 06:13 Globulin 2.4 g/dL (2.1-4.2) 11/05/21 06:13 Albumin/Globulin Ratio 1.4 (1.0-2.2) 11/05/21 06:13 Prealbumin 24 mg/dL (18-45) 11/05/21 06:13 Triglycerides 491 mg/dL (-149) H 11/05/21 06:13 LDL Cholesterol Direct 77 mg/dL (-129) 11/05/21 06:13 dLDL/HDL Ratio Not Reportable 11/05/21 06:13 Lipase 49 U/L (22-51) 10/30/21 11:10 Urine Color YELLOW 10/30/21 14:49 Urine Clarity HAZY (CLEAR) 10/30/21 14:49 Urine pH 6.5 PH (5.0-7.5) 10/30/21 14:49 Ur Specific [place] 1.020 (1.002-1.030) 10/30/21 14:49 Urine Protein NEGATIVE mg/dL (NEGATIVE) 10/30/21 14:49 Urine Glucose (UA) NEGATIVE mg/dL (NEGATIVE) 10/30/21 14:49 Urine Ketones 15 mg/dL (NEGATIVE) H 10/30/21 14:49 Urine Occult Blood NEGATIVE (NEGATIVE) 10/30/21 14:49 Urine Nitrite POSITIVE (NEGATIVE) H 10/30/21 14:49 Urine Bilirubin NEGATIVE (NEGATIVE) 10/30/21 14:49 Urine Urobilinogen 2 E.U./dL (NORMAL) H 10/30/21 14:49 Ur Leukocyte Esterase NEGATIVE (NEGATIVE) 10/30/21 14:49 Urine RBC 0-5 /HPF (0-5) 10/30/21 14:49 Urine WBC 4-5 /HPF (0-5) 10/30/21 14:49 Ur Squamous Epith Cells FEW Squamous (<= Few) 10/30/21 14:49 Urine Bacteria Many /HPF (None Seen) H 10/30/21 14:49 Urine Mucus Few Strands 10/30/21 14:49 Ur Microscopic Review INDICATED 10/30/21 14:49 Urine Culture Comments INDICATED 10/30/21 14:49 Nasal Adenovirus (PCR) NOT DETECTED 10/30/21 20:41 Nasal B. parapertussis DNA (PCR) NOT DETECTED 10/30/21 20:41 Nasal Coronavir 229E PCR NOT DETECTED 10/30/21 20:41 Nasal Coronavir HKU1 PCR NOT DETECTED 10/30/21 20:41 Nasal Coronavir NL63 PCR NOT DETECTED 10/30/21 20:41 Nasal Coronavir OC43 PCR NOT DETECTED 10/30/21 20:41 Nasal Enterovir/Rhinovir PCR NOT DETECTED 10/30/21 20:41 Nasal Influenza B PCR NOT DETECTED 10/30/21 20:41 Nasal Influenza A PCR NOT DETECTED 10/30/21 20:41 Nasal Parainfluen 1 PCR NOT DETECTED 10/30/21 20:41 Nasal Parainfluen 2 PCR NOT DETECTED 10/30/21 20:41 Nasal Parainfluen 3 PCR NOT DETECTED 10/30/21 20:41 Nasal Parainfluen 4 PCR NOT DETECTED 10/30/21 20:41 Nasal RSV (PCR) NOT DETECTED 10/30/21 20:41 Nasal B.pertussis DNA PCR NOT DETECTED 10/30/21 20:41 Nasal C.pneumoniae (PCR) NOT DETECTED 10/30/21 20:41 [place] Human Metapneumo PCR NOT DETECTED 10/30/21 20:41 Nasal M.pneumoniae (PCR) NOT DETECTED 10/30/21 20:41 Nasal SARS-CoV-2 (PCR) NOT DETECTED 10/30/21 20:41 ABX Reporting Has patient been on IV antibiotics over the past 48 hours?: No Current Medications - Current Medications Current Medications: Active Medications Acetaminophen (Acetaminophen 325 Mg Tablet) 650 mg PO Q4HR PRN PRN Reason: Pain or Fever > 38C (100.4F) Al Hydroxide/Mg Hydroxide (Mag Hydrox/Al Hydrox/Simeth 30 Ml Udc) 30 ml PO Q4HR PRN PRN Reason: INDIGESTION Last Admin: 11/05/21 09:32 Dose: 30 ml Documented by: Alprazolam (Alprazolam 0.25 Mg Tablet) 0.25 mg PO BID PRN PRN Reason: Anxiety Last Admin: 11/04/21 07:47 Dose: 0.25 mg Documented by: Baclofen (Baclofen 10 Mg Tablet) 5 mg PO BID PRN PRN Reason: Spasms Last Admin: 11/03/21 13:21 Dose: 5 mg Documented by: Carboxymethylcellulose (Carboxymethylcellulose Ophth Drops) 1 drops EACHEYE PRN PRN PRN Reason: Dry Eye Last Admin: 11/02/21 09:06 Dose: 1 unit Documented by: Gabapentin (Gabapentin 100 Mg Capsule) 100 mg PO TID PRN PRN Reason: NEUROPATHY Last Admin: 11/05/21 11:36 Dose: 100 mg Documented by: Hydroxyzine Pamoate (Hydroxyzine Pamoate 25 Mg Capsule) 50 mg PO QPM [facility] Last Admin: 11/04/21 21:21 Dose: 50 mg Documented by: Multivitamins 10 ml/ Thiamine HCl 100 mg/ Magnesium Sulfate 2 gm/ Folic Acid 1 mg/ TRACE ELEMENTS 1 ml/ Sodium Chloride 1,016.2 mls @ 75 mls/hr IV DAILY@1300 [facility] Last Infusion: 11/05/21 07:05 Dose: Infused Documented by: Amino Ac/Electrol/Dextrose/Calcium (Clinimix E 5%-15% Solution) 2,000 mls @ 42 mls/hr IV Q24H NANCY; Protocol Last Admin: 11/04/21 19:09 Dose: 42 mls/hr Documented by: FAT EMULSION/OLIVE/SOY/PHOSPHO (Clinolipid 20% Iv Fat Emulsion) 50 in 250 mls @ 21 mls/hr IV 1900 NANCY Last Infusion: 11/05/21 07:04 Dose: Infused Documented by: Loperamide HCl (Loperamide 2 Mg Capsule) 2 mg PO QID PRN PRN Reason: Diarrhea Last Admin: 11/05/21 11:30 Dose: 2 mg Documented by: Loratadine (Loratadine 10 Mg Tablet) 10 mg PO DAILY PRN PRN Reason: Allergy Symptoms Multi-Ingredient Mouthwash/Gargle (Gi Cocktail 120 Ml Bottle) 10 ml PO Q6H PRN PRN Reason: PAIN Last Admin: 11/05/21 02:54 Dose: 10 ml Documented by: Ondansetron HCl (Ondansetron 4 Mg/2 Ml Vial) 4 mg IVP Q6HR PRN PRN Reason: Nausea / Vomiting Last Admin: 11/01/21 08:32 Dose: 4 mg Documented by: Pantoprazole Sodium (Pantoprazole 40 Mg Tablet) 40 mg PO QDAC [facility] Last Admin: 11/05/21 06:19 Dose: 40 mg Documented by: Patient Own Med: Pyridostigmine [place] 60 Mg Tablet 0.5 each PO BIDAC [facility] Last Admin: 11/05/21 06:13 Dose: 0.5 each Documented by: Potassium Chloride (Potassium Chloride 20 Meq/15 Ml Udc) 20 meq PO BIDWM [facility] Last Admin: 11/05/21 09:31 Dose: 20 meq Documented by: Sodium Chloride (Sodium Chloride Flush 0.9% 10 Ml Syringe) 10 ml IVP PRN PRN PRN Reason: NEEDED PER PROVIDER ORDERS Last Admin: 11/05/21 06:19 Dose: 50 ml Documented by: Sodium Chloride (Sodium Chloride Flush 0.9% 10 Ml Syringe) 10 ml IVP 0100,0900,1700 [facility] Last Admin: 11/05/21 09:32 Dose: 10 ml Documented by: Sodium Chloride (Sodium Chloride Flush 0.9% 10 Ml Syringe) 20 ml IVP PRN PRN PRN Reason: After Blood Draw Last Admin: 11/03/21 22:48 Dose: 20 ml Documented by: Sucralfate (Sucralfate 1 Gm/10 Ml Udc) 1 gm PO 0700,1100,1600,2200 [facility] Last Admin: 11/05/21 11:30 Dose: 1 gm Documented by: Throat Lozenges (Benzocaine/Menthol Lozenge) 1 lozenge MM Q2HR PRN PRN Reason: Throat pain Last Admin: 10/31/21 19:21 Dose: 1 lozenge Documented by: Tramadol HCl (Tramadol 50 Mg Tablet) 50 mg PO BID PRN PRN Reason: PAIN Last Admin: 11/05/21 07:36 Dose: 50 mg Documented by: Zolpidem Tartrate (Zolpidem 5 Mg Tablet) 10 mg PO QPM PRN PRN Reason: Insomnia Last Admin: 11/04/21 21:21 Dose: 10 mg Documented by: Alprazolam [Xanax] 0.25 mg PO BID PRN 10/31/21 Baclofen [Lioresal] 5 mg PO BID PRN 10/31/21 Fluconazole [Diflucan] 100 mg PO DAILY 10/31/21 Gabapentin [Neurontin] 100 mg PO TID PRN 10/31/21 Pantoprazole [Protonix] 40 mg PO QDAC 10/31/21 Pyridostigmine [place] [Mestinon] 30 mg PO 0700,1100 10/31/21 Sucralfate [Carafate] 1 gm PO AC 10/31/21 Zolpidem [Ambien] 10 mg PO HS PRN 10/31/21 hydrOXYzine HCL [Hydroxyzine HCl] 50 mg PO Q8H PRN 10/31/21 oxyCODONE/ACET 5/325 [Percocet 5 mg/325 mg] 1 each PO DAILY PRN 10/31/21 traMADol [Ultram] 50 mg PO BID PRN 10/31/21
[2021-11-05] MEDS: ALPRAZolam 0.25 MG TABLET PO PRN (14:23)
[2021-11-05] MEDS: MAGNESIUM SULFATE IV SCH ×6 (15:22)
[2021-11-05] MEDS: MULTIVITAMIN IV SCH ×6 (15:22)
[2021-11-05] MEDS: [UNRECOGNIZED DRUG - OTHER] IV SCH ×6 (15:22)
[2021-11-05] MEDS: THIAMINE IV SCH ×6 (15:22)
[2021-11-05] MEDS: FOLIC ACID IV SCH ×6 (15:22)
[2021-11-05] MEDS ORDERED: TPN (CLINIMIX E 5/15) 2,000 ML IV SCH (19:00)
[2021-11-05] MEDS: ZOLPIDEM 5 MG TABLET PO PRN (21:09)
[2021-11-05] MEDS: hydrOXYzine PAMOATE 25 MG CAPSULE PO SCH (21:09)
[2021-11-06] MEDS: ALPRAZolam 0.25 MG TABLET PO PRN ×2 (00:58→11:00)
[2021-11-06] MEDS: GI COCKTAIL 120 ML BOTTLE PO PRN ×2 (05:05→11:00)
[2021-11-06] MEDS: MAG HYDROX/AL HYDROX/SIMETH 30 ML UDC PO PRN ×2 (05:05→10:45)
[2021-11-06] MEDS: SUCRALFATE 1 GM/10 ML UDC PO SCH ×2 (06:51→11:00)
[2021-11-06] MEDS: PANTOPRAZOLE 40 MG TABLET PO SCH (06:51)
[2021-11-06] MEDS: PYRIDOSTIGMINE BROMIDE 60 MG PO SCH (06:53)
[2021-11-06] MEDS: POTASSIUM CHLORIDE 20 MEQ/15 ML UDC PO SCH (08:11)
[2021-11-06] MEDS: GABAPENTIN 100 MG CAPSULE PO PRN (08:15)
[2021-11-06] MEDS: SODIUM CHLORIDE FLUSH 0.9% 10 ML SYRINGE IVP SCH (08:17)
[2021-11-06 08:24] LABS: BASOPHILS % (AUTO) 0.4 %; EOSINOPHILS # (AUTO) 0.1 10^3/uL (0.0-0.7); EOSINOPHILS % (AUTO) 2.1 %; LYMPHOCYTES # (AUTO) 0.9 10^3/uL (1.5-3.5); LYMPHOCYTES % (AUTO) 19.4 %; MEAN CORPUSCULAR HEMOGLOBIN 29.7 pg (27.0-31.0); MEAN CORPUSCULAR HGB CONC 33.3 g/dL (32.0-36.0); MEAN CORPUSCULAR VOLUME 89.1 fL (81.0-99.0); MONOCYTES # (AUTO) 0.4 10^3/uL (0.0-1.0); MONOCYTES % (AUTO) 8.5 %; NEUTROPHILS # (AUTO) 3.4 10^3/uL (1.5-6.6); NEUTROPHILS % (AUTO) 69.4 %; PLT - PLATELET COUNT 191 10^3/uL (130-450); RED BLOOD COUNT 4.04 10^6/uL (4.20-5.40); RED CELL DISTRIBUTION WIDTH 14.7 % (12.0-15.0); WHITE BLOOD COUNT 4.8 x10^3/uL (4.8-10.8)
[2021-11-06 08:42] LABS: ALBUMIN 3.6 g/dL (3.2-5.5); ALBUMIN/GLOBULIN RATIO 1.5 (1.0-2.2); BILIRUBIN,TOTAL 0.9 mg/dL (0.2-1.0); CALCIUM 8.8 mg/dL (8.5-10.3); CREATININE 0.6 mg/dL (0.4-1.0); POTASSIUM 4.1 mmol/L (3.5-5.0)
--- NOTE | 2021-11-06 09:00 | Discharge Plan ---
Discharge Plan Problem Reviewed?: Yes Disposition: Home Health Service Condition: Stable Prescriptions: Sucralfate [Carafate] 1 gm PO 0700,1100,1600,2200 #100 unit Gi Cocktail 10 ml PO Q6H PRN #1 bottle PRN Reason: Pain Potassium Chloride Oral Soln [Potassium Chloride] 20 meq PO DAILY 15 Days #15 unit Activity Restrictions: Activity as Tolerated Shower Restrictions: No (fall precaution) Instruction Topics: IV Care TPN, TPN Solution Add Meds Dc, TPN Overview Dc, Catheter TPN Flush Dc, Nutrition Total Parenteral Ch Health Concerns: TPN parenteral nutrition, partial gastric outlet obstruction/hepatic cyst Plan of Treatment: You have PICC line for your parenteral nutrition, please start TPN by infusion [employer] on early tomorrow. Senior Project Accountant arranged for you. You may followup with [facility] lab test protocol to monitor for parenteral nutrition, followup with your PCP's management for as well, and followup with your GI appointment on today afternoon, and discussed your partial gastric outlet obstruction/hepatic cyst care plan as well. You are prescribed GI cocktail PRN, sucralfate oral solution, and potassium oral solution, you may resume your home meds. Care Goals: Stabilization and improvement of your nutrition status Assessment: Discussed the care plan with you in detail, answered your questions, you understood Additional Instructions or Follow Up instructions: You may follow-up with your PCP in 1 week, follow-up with your GI appointment on this afternoon. should your symptoms return or worsen, you may present to the ER or call 911 for help Follow-Up Care: Dietitian No Smoking: If you smoke, Please STOP! Call for help. Follow-up with: Provider,Other [Primary Care Provider] -
[2021-11-06 09:25] VITALS: BP 115/79
[2021-11-06] MEDS: LOPERAMIDE 2 MG CAPSULE PO PRN (09:45)
--- NOTE | 2021-11-06 10:48 | DISCHARGE SUMMARY ---
Discharge Summary Admit Date: 10/30/21 Discharge Date: 11/06/21 Discharging Provider: Charly Reyes Condition at Discharge: Stable Discharge Disposition: Home Health Service Discharge Facility Name: home - DIAGNOSES Discharge Diagnoses with Status of Each Condition: (1) Failure to thrive pt lost 40 pound in 6 months and she was inability to eat solid foods, complain of abdominal pain. pt report she only take clear food at home. Patient tolerated TPN in hospital. cattle alley worker arranged pt to have TPN on tomorrow morning by [employer] [facility]. Electrolytes and TPN is managed by [employer] [facility] and patient's PCP, and her GI doctor as out-pt. pt will see GI doctor on today afternoon. (2) Chest pain right chest pain was resolved. EKG is SR. repeated troponin were negative. unspecific, likely unrelated to heart (3) Severe protein-calorie malnutrition Impression: pt lost 40 pound in 6 months. Patient tolerated TPN in hospital. cattle alley worker arranged pt to have TPN on tomorrow morning by [employer] [facility]. pt will see GI doctor on today afternoon and consult for pt's large hepatic cyst and partial gastric outlet obstruction. (4) Hepatic cyst pt has appointment to see her GI on today afternoon and followup care (5) GERD (gastroesophageal reflux disease) improved. pt is prescribed Gi cocktail, sucralfate, continue home meds (6) Partial gastric outlet obstruction pt will see her GI doctor on today afternoon (7)hypokalemia resolved. pt is prescribed 20meq potassium daily, followup with Electrolytes monitor by her PCP in one week. - HPI History of Present Illness: refer from Dr. Sherry Rivera's HPO on 10/30/21 This is a 66-year-old white female who is a , lives alone, has a history of adult acne (for which she took spironolactone in order to decrease testosterone and drain acne lesions, stopped taking this 3 weeks ag0), and she takes hydroxyzine for N/V and anxiety. Over the past 6 months she has developed progressively worsening and unrelenting painful swallowing, acid reflux symptoms, feeling like a lump in her throat and inability to eat solid foods, abdominal pain, minimal nausea and vomiting and weight loss of 40 pounds over 6 months. She has had ENT evaluation and EGD. She has been treated with GI cocktail, Protonix, sucralfate and pain medications. Finally, recent imaging showed that she has a massive liver cyst measuring 10 x 12 cm which is pushing on her stomach and obstructing it's outflow. She has been seen by research nutritionist for assistance in adjusting her diet and finally cattle alley worker has advised TPN for nutrition. The patient presented to the ED today for severe GERD symptoms, overall weakness, feeling lightheaded when she walks (needing to hold onto a wall) and the continued symptoms of acid reflux, painful swallowing and malnutrition/weight loss. Evaluation showed that the liver cyst is compressing the duodenum and distal stomach causing obstruction and that her IVC is underfilled and she is dehydrated and U/A shows ketones probably from starvation ketosis. Patient is being admitted to the Hospitalist team to manage her dehydration, malnutrition, inserting a PICC line and starting TPN, and also to determine where best to have the large liver cyst drained and managed. We discussed her CODE BLUE wishes and she wants to be a DNR. - ALLERGIES Allergies/Adverse Reactions: Allergies Allergy/AdvReac Type Severity Reaction Status Date / Time minocycline Allergy Unknown Verified 10/30/21 09:21 Sulfa (Sulfonamide Allergy Unknown Verified 10/30/21 09:21 Antibiotics) - MEDICATIONS Home Medications: Ambulatory Orders Medication Instructions Recorded Confirmed Alprazolam [Xanax] 0.25 mg PO BID PRN 10/31/21 10/31/21 Baclofen [Lioresal] 5 mg PO BID PRN 10/31/21 10/31/21 Fluconazole [Diflucan] 100 mg PO DAILY 10/31/21 10/31/21 Gabapentin [Neurontin] 100 mg PO TID PRN 10/31/21 10/31/21 Pantoprazole [Protonix] 40 mg PO QDAC 10/31/21 10/31/21 Pyridostigmine Barnard [Mestinon] 30 mg PO 0700,1100 10/31/21 10/31/21 Zolpidem [Ambien] 10 mg PO HS PRN 10/31/21 10/31/21 hydrOXYzine HCL [Hydroxyzine HCl] 50 mg PO Q8H PRN 10/31/21 10/31/21 oxyCODONE/ACET 5/325 [Percocet 5 1 each PO DAILY PRN 10/31/21 10/31/21 mg/325 mg] traMADol [Ultram] 50 mg PO BID PRN 10/31/21 10/31/21 Gi Cocktail 10 ml PO Q6H PRN #1 bottle 11/06/21 Potassium Chloride Oral Soln 20 meq PO DAILY 15 Days #15 unit 11/06/21 [Potassium Chloride] Sucralfate [Carafate] 1 gm PO 0700,1100,1600,2200 #100 11/06/21 unit - PHYSICAL EXAM AT DISCHARGE General Appearance: positive: No acute distress, Alert. negative: Lethargic Eyes Bilateral: positive: Normal inspection, No lid inflammation ENT: positive: ENT inspection nml, No signs of dehydration. negative: Purulent nasal drainage Neck: positive: Nml inspection, Trachea midline. negative: Tracheal deviation Respiratory: positive: Chest non-tender, No respiratory distress, Breath sounds nml. negative: Wheezes Cardiovascular: positive: Regular rate & rhythm. negative: Tachycardia, Bradycardia, Systolic murmur Peripheral Pulses: positive: 2+ Abdomen: positive: Non-tender, Nml bowel sounds. negative: Tenderness Back: positive: Nml inspection Skin: positive: Color nml, Warm, Dry. negative: Cyanosis Extremities: positive: Non-tender, Full ROM, Nml appearance, Other (pt walk at [facility] without any distress) Neurologic/Psychiatric: positive: Oriented x3, Motor nml, Sensation nml. negative: Weakness, Sensory loss, Facial droop, Slurred/abnml speech, Depressed mood/affect - LABS Result Diagrams: 11/06/21 08:19 11/06/21 08:19 - FOLLOW UP Follow Up: You have PICC line for your parenteral nutrition, please start TPN by [employer] [facility] on early tomorrow. Antique Refinisher arranged for you. You may followup with [employer] [facility] lab test protocol to monitor for parenteral nutrition, followup with your PCP's management for as well, and followup with your GI appointment on today afternoon, and discussed your partial gastric outlet obstruction/hepatic cyst care plan as well. You are prescribed GI cocktail PRN, sucralfate oral solution, and potassium oral solution, you may resume your home meds. You may follow-up with your PCP in 1 week, follow-up with your GI appointment on this afternoon. should your symptoms return or worsen, you may present to the ER or call 911 for help - TIME SPENT Time Spent in Discharge (Minutes): 30
[2021-11-06] MEDS ORDERED: SOY IV SCH (19:00)
[2021-11-06] MEDS ORDERED: FISH OIL IV SCH (19:00)
[2021-11-06] MEDS ORDERED: FAT EMUL IV SCH (19:00)
[2021-11-06] MEDS ORDERED: MCT IV SCH (19:00)
[2021-11-06] MEDS ORDERED: OLIV IV SCH (19:00)
== END 2021-11-06 11:22 | disposition home health service (06) | DRG 441 ==
LOC: ED 09:16 → MS2 20:36
PROVIDERS: ADMIT Internal Medicine; ATTEND Nurse Practitioner Gerontology
PROC: 3E0436Z Introduction of Nutritional Substance into Central Vein, Percutaneous Approach (ICD-10-PCS; principal; 2021-10-31)
PROC: 02HV33Z Insertion of Infusion Device into Superior Vena Cava, Percutaneous Approach (ICD-10-PCS; 2021-10-31)
DX: K76.89 Other specified diseases of liver (principal); E43 Unspecified severe protein-calorie malnutrition; K31.1 Adult hypertrophic pyloric stenosis; Z68.1 Body mass index [BMI] 19.9 or less, adult; R63.4 Abnormal weight loss; Z20.822 Contact with and (suspected) exposure to COVID-19; R53.1 Weakness; R62.7 Adult failure to thrive; K21.9 Gastro-esophageal reflux disease without esophagitis; R07.9 Chest pain, unspecified; F41.9 Anxiety disorder, unspecified; E86.0 Dehydration; E87.6 Hypokalemia; Z66 Do not resuscitate
CPT/HCPCS: 36415; 71045; 80048; 80053; 81001; 83690; 83721; 83735; 83880; 84100; 84134; 84478; 84484; 85025; 85610; 85730; 87086; 87181; 87631; 93005; 96361; 96374; 97161; 99284; 99285; A9270; C1751; J1170; J2060; J3411; J3490; 0202U; 81003

== ENCOUNTER 2022-06-05 18:00 | Emergency (ER) | payer MEDICARE ==
[2022-06-05 18:39] LABS: BASOPHILS % (AUTO) 0.5 %; EOSINOPHILS # (AUTO) 0.1 10^3/uL (0.0-0.7); EOSINOPHILS % (AUTO) 1.4 %; HCT - HEMATOCRIT 37.7 % (37.0-47.0); HGB - HEMOGLOBIN 12.5 g/dL (12.0-16.0); LYMPHOCYTES # (AUTO) 1.4 10^3/uL (1.5-3.5); LYMPHOCYTES % (AUTO) 21.7 %; MEAN CORPUSCULAR HEMOGLOBIN 29.3 pg (27.0-31.0); MEAN CORPUSCULAR HGB CONC 33.2 g/dL (32.0-36.0); MEAN CORPUSCULAR VOLUME 88.3 fL (81.0-99.0); MEAN PLATELET VOLUME 9.3 fL (7.9-10.8); MONOCYTES # (AUTO) 0.4 10^3/uL (0.0-1.0); MONOCYTES % (AUTO) 5.9 %; NEUTROPHILS # (AUTO) 4.5 10^3/uL (1.5-6.6); NEUTROPHILS % (AUTO) 70.3 %; PLT - PLATELET COUNT 222 10^3/uL (130-450); RED BLOOD COUNT 4.27 10^6/uL (4.20-5.40); RED CELL DISTRIBUTION WIDTH 13.9 % (12.0-15.0); WHITE BLOOD COUNT 6.3 x10^3/uL (4.8-10.8)
[2022-06-05 18:45] LABS: MUDS CUTOFF CONCENTRATIONS CUTOFF CONC BELOW:
[2022-06-05 18:53] LABS: BILIRUBIN,URINE NEGATIVE (NEGATIVE); GLUCOSE, URINE (UA) NEGATIVE (NEGATIVE); KETONES,URINE (UA) NEGATIVE (NEGATIVE); LEUKOCYTE ESTERASE, URINE NEGATIVE (NEGATIVE); NITRITE,URINE NEGATIVE (NEGATIVE); OCCULT BLOOD,URINE NEGATIVE (NEGATIVE); PROTEIN,URINE NEGATIVE (NEGATIVE); UROBILINOGEN,URINE 0.2 (NORMAL) E.U./dL (NORMAL)
[2022-06-05 18:54] LABS: CLARITY,URINE CLEAR (CLEAR)
[2022-06-05 19:01] LABS: ACETAMINOPHEN < 10 ug/mL (10-30); ALBUMIN 4.3 g/dL (3.2-5.5); ALBUMIN/GLOBULIN RATIO 1.5 (1.0-2.2); ALKALINE PHOSPHATASE 53 IU/L (42-121); ALT ALANINE AMINOTRANSFERASE 24 IU/L (10-60); AST ASPARTATE AMINOTRANSFERASE 23 IU/L (10-42); BILIRUBIN,TOTAL 0.5 mg/dL (0.2-1.0); BUN - BLOOD UREA NITROGEN 15 mg/dL (6-20); CALCIUM 9.8 mg/dL (8.5-10.3); CARBON DIOXIDE - CO2 30 mmol/L (21-32); CHLORIDE 101 mmol/L (101-111); CREATININE 0.8 mg/dL (0.4-1.0); ETOH - ETHANOL < 5.0 mg/dL; GFR - MDRD 72 (>89); GLUCOSE 104 mg/dL (70-100); LIPASE 39 U/L (22-51); POTASSIUM 3.8 mmol/L (3.5-5.0); SALICYLATE < 6.0 mg/dL; SODIUM 140 mmol/L (135-145); TOTAL PROTEIN 7.1 g/dL (6.7-8.2)
[2022-06-05 19:05] LABS: AMPHETAMINE SCREEN,URINE NEGATIVE (NEGATIVE); BARBITURATE SCREEN,UR NEGATIVE (NEGATIVE); BENZODIAZEPINES SCREEN, URINE POSITIVE (NEGATIVE); COCAINE SCREEN URINE NEGATIVE (NEGATIVE); METHADONE SCREEN, URINE NEGATIVE (NEGATIVE); METHAMPHETAMINES SCREEN, URINE NEGATIVE (NEGATIVE); OPIATE SCREEN, URINE NEGATIVE (NEGATIVE); OXYCODONE SCREEN, URINE NEGATIVE (NEGATIVE); PROPOXYPHENE SCREEN, URINE NEGATIVE (NEGATIVE); THC CANNABINOID SCREEN, URINE NEGATIVE (NEGATIVE); TRICYCLIC ANTIDEPRESSANT,URINE POSITIVE (NEGATIVE)
--- NOTE | 2022-06-05 20:12 | ED Physician Documentation ---
History of Present Illness - Stated complaint Stated Complaint: SI - Chief complaint Chief Complaint: MHE - Additonal information Additional information: 66-year-old female presents to the emergency department for suicidal thoughts. She has been battling with health conditions over the last year. Some of this has resulted in anxiety and depression. She is currently living on [facility]. Her mom is visiting her from [place] this week. Her mom needs to return home tomorrow. The patient states to me that she does not know how she would stop herself from harming her self once her mom leaves. She states that she would slit her wrists. Patient currently takes amitriptyline 100 mg daily as well as Xanax and Ativan for anxiety. She has been seen and followed by [facility] psychiatry. [phone]. She does have a safety plan in place. The patient is socially isolated for most of her family which contributes to her symptoms. She is also very anxious and worried about the chronic pain that she has in her throat and abdomen. She has had extensive work-up over the last year with no clear etiology seen. Review of Systems Constitutional: denies: Fever, Chills Eyes: reports: Reviewed and negative Throat: reports: Sore throat Cardiac: reports: Reviewed and negative GI: reports: Reviewed and negative : reports: Reviewed and negative Skin: reports: Reviewed and negative Neurologic: reports: Reviewed and negative Psychiatric: reports: Depressed, Suicidal, Anxiety. denies: Homicidal, Hallucinations, Delusions PD PAST MEDICAL HISTORY - Past Medical History Cardiovascular: None Respiratory: None Neuro: None Endocrine/Autoimmune: None GI: GERD, Other HYDRAULIC BOOM OPERATOR: None : None HEENT: Glaucoma Psych: None Musculoskeletal: Osteoarthritis, Other Derm: Other - Past Surgical History Past Surgical History: Yes General: EGD HEENT: Detached retina repair - Present Medications Home Medications: Ambulatory Orders Medication Instructions Recorded Confirmed Alprazolam [Xanax] 0.25 mg PO BID PRN 10/31/21 06/05/22 Gabapentin [Neurontin] 100 mg PO TID PRN 10/31/21 06/05/22 Zolpidem [Ambien] 10 mg PO HS PRN 10/31/21 06/05/22 hydrOXYzine HCL [Hydroxyzine HCl] 50 mg PO Q8H PRN 10/31/21 06/05/22 Acyclovir 3 tab PO DAILY PRN 03/19/22 06/05/22 Amitriptyline [Elavil] 4 tab PO DAILY 03/19/22 06/05/22 Latanoprost/Pf [Latanoprost 0.005% 2 drops TOP DAILY 03/19/22 06/05/22 Eye Drop] Loratadine [Claritin] 1 tab PO DAILY 03/19/22 06/05/22 Mirtazapine 0.5 tab PO DAILY 03/19/22 06/05/22 Sennosides/Docusate Sodium 2 tab PO DAILY PRN 03/19/22 06/05/22 [Senna-Docusate Sodium Tablet] - Allergies Allergies/Adverse Reactions: Allergies Allergy/AdvReac Type Severity Reaction Status Date / Time minocycline Allergy Unknown Verified 03/19/22 11:16 Sulfa (Sulfonamide Allergy Unknown Verified 03/19/22 11:16 Antibiotics) - Social History Does the pt smoke?: No Smoking Status: Never smoker Does the pt drink ETOH?: No Does the pt have substance abuse?: No - Immunizations Immunizations are current?: Yes - POLST Patient has POLST: No POLST Status: DNR PD ED PE EXPANDED - General General: Alert, Other (Tearful) - Cardiac Cardiac: Regular Rate, Radial strong equal - Respiratory Respiratory: Clear to ausultation seda - Abdomen Abdomen: Normal Bowel sounds. No: Tender to palpation - Derm Derm: Normal color, Warm and dry - GCS Eye Opening: Spontaneous Motor: Obeys Commands Verbal: Oriented Total: 15 - Psych Psych: Depressed, Suicidal, Tearful Results - Vitals Vitals: Vital Signs - 24 hr 06/05/22 18:17 Temperature 37.2 C Heart Rate 89 Respiratory 18 Rate Blood Pressure 137/89 H O2 Saturation 99 Oxygen O2 Source Room air - Labs Labs: Laboratory Tests 06/05/22 06/05/22 06/05/22 18:32 18:32 18:32 WBC 6.3 RBC 4.27 Hgb 12.5 Hct 37.7 MCV 88.3 MCH 29.3 MCHC 33.2 RDW 13.9 Plt Count 222 MPV 9.3 Neut # (Auto) 4.5 Lymph # (Auto) 1.4 L Wythe # (Auto) 0.4 Eos # (Auto) 0.1 Baso # (Auto) 0.0 Absolute Nucleated RBC 0.00 Nucleated RBC % 0.0 Sodium 140 Potassium 3.8 Chloride 101 Carbon Dioxide 30 Anion Gap 9.0 BUN 15 Creatinine 0.8 Estimated GFR (MDRD) 72 L Glucose 104 H Calcium 9.8 Total Bilirubin 0.5 AST 23 ALT 24 Alkaline Phosphatase 53 Total Protein 7.1 Albumin 4.3 Globulin 2.8 Albumin/Globulin Ratio 1.5 Lipase 39 TSH 1.28 Urine Color Urine Clarity Urine pH Ur Specific Merrill Urine Protein Urine Glucose (UA) Urine Ketones Urine Occult Blood Urine Nitrite Urine Bilirubin Urine Urobilinogen Ur Leukocyte Esterase Ur Microscopic Review Urine Culture Comments Salicylates < 6.0 Urine Opiates Screen Ur Oxycodone Screen Urine Methadone Screen Ur Propoxyphene Screen Acetaminophen < 10 L Ur Barbiturates Screen Ur Tricyclics Screen Ur Phencyclidine Scrn Ur Amphetamine Screen U Methamphetamines Scrn U Benzodiazepines Scrn Urine Cocaine Screen U Cannabinoids Screen Ethyl Alcohol < 5.0 SARS-CoV-2 (PCR) 06/05/22 06/05/22 18:35 18:41 WBC RBC Hgb Hct MCV MCH MCHC RDW Plt Count MPV Neut # (Auto) Lymph # (Auto) Wythe # (Auto) Eos # (Auto) Baso # (Auto) Absolute Nucleated RBC Nucleated RBC % Sodium Potassium Chloride Carbon Dioxide Anion Gap BUN Creatinine Estimated GFR (MDRD) Glucose Calcium Total Bilirubin AST ALT Alkaline Phosphatase Total Protein Albumin Globulin Albumin/Globulin Ratio Lipase TSH Urine Color YELLOW Urine Clarity CLEAR Urine pH 7.0 Ur Specific Merrill 1.015 Urine Protein NEGATIVE Urine Glucose (UA) NEGATIVE Urine Ketones NEGATIVE Urine Occult Blood NEGATIVE Urine Nitrite NEGATIVE Urine Bilirubin NEGATIVE Urine Urobilinogen 0.2 (NORMAL) Ur Leukocyte Esterase NEGATIVE Ur Microscopic Review NOT INDICATED Urine Culture Comments NOT INDICATED Salicylates Urine Opiates Screen NEGATIVE Ur Oxycodone Screen NEGATIVE Urine Methadone Screen NEGATIVE Ur Propoxyphene Screen NEGATIVE Acetaminophen Ur Barbiturates Screen NEGATIVE Ur Tricyclics Screen POSITIVE H Ur Phencyclidine Scrn NEGATIVE Ur Amphetamine Screen NEGATIVE U Methamphetamines Scrn NEGATIVE U Benzodiazepines Scrn POSITIVE H Urine Cocaine Screen NEGATIVE U Cannabinoids Screen NEGATIVE Ethyl Alcohol SARS-CoV-2 (PCR) NOT DETECTED PD MEDICAL DECISION MAKING - ED course Complexity details: considered differential, d/w patient, d/w family ED course: 66-year-old female presents the emergency department for suicidal ideation. [place]. In addition to this she is battling some more chronic health concerns. She is taking amitriptyline for anxiety and depression. She states that she takes too much of it it makes her loopy but too little causes worsening depression. Also takes Xanax and Ativan. Her mom [place]. This is prompting the mental health crisis. The patient does not desire to be hospitalized. However I do have real concern that she would act on her thoughts if left unattended or allowed to go home. Given the hour of the night we will do a telepsych consultation. I suspect that they will likely make the recommendation for psychiatric hospitalization. However if the patient were to decline that, involuntary evaluation or DCR should be instituted. Social work consult has been placed for evaluation in the morning. I have discussed this plan with the patient and her mom at the bedside and they are in agreement at this time. Pt will be signed out to my night time colleague Dr. Collins to f/u on telepsych consult. Social work pending in the am Departure - Departure Clinical Impression: Suicidal ideations Depression Qualifiers: Depression Type: unspecified Qualified Code(s): F32.A - Depression, unspecified Condition: Stable Record reviewed to determine appropriate education?: Yes
[2022-06-05] MEDS ORDERED: GABAPENTIN 100 MG CAPSULE PO STA (23:59)
[2022-06-06] MEDS ORDERED: hydrOXYzine PAMOATE 25 MG CAPSULE PO STA (02:07)
--- NOTE | 2022-06-06 03:25 | TELEPSYCH PHYS NOTE ---
Telepsych Consultation Note Consult: Name: Danielle EricDOB: 1955 DateandTime: 06/06/2022 5:33:18 AM [facility] Length of consult: 45 min This evaluation was conducted via video telepsychiatry with the assistance of onsite staff Reason for consult: SI Requested by: ER staff History of Present Illness: The patient is a 66-year-old female with a history of depression who presented to the ER complaining of depressed mood and suicidal ideations with no plan. The patient has been dealing with medical issues. The mother came to visit last week which has helped with depression and frustration. The mother was due to return to [place] prompting intense anxiety and depressive the patient. Patient called a hotline and was advised to come to the ER for treatment. When seen by psychiatry, the patient revealed that she is prescribed Ativan 0.5 mg TID and amitriptyline hundred milligrams HS. Patient states that the Ativan is a standing dose and she often feels tired and lethargic the next morning after taking three doses the previous day. The patient reports that she has tried skipping the morning dose of Ativan but she does the second and third dose or not as effective. Patient is scheduled to meet with her new therapist next week. The psychiatrist's discussed changing the Ativan from 0.5 TID to 1 mg daily PRN. The patient felt comfortable with this plan. The mother was present and said the patient would not be alone as she was not leaving town. Patient also said that other relatives would be spending time with her to make sure she was not alone. The patient and mother felt safe and comfortable leaving the hospital with the current plan. Sleep issues?: No Psychiatric History/Treatment History: Past diagnoses: Hospitalizations: No Current Treatment:YesMedication management:YesMedications:Therapy: Suicide Assessment: PSS-3: 1) Over the past 2 weeks have you felt down, depressed or hopeless?Yes 2) Over the past 2 weeks have you had thoughts of killing yourself?Yes 3) Have you ever in your life attempted to kill yourself?Yes Within the past 6 months?No PSS-3 Secondary Screen: 1) Positive on PSS-3 questions 2 & 3 active SI with a past attempt?No 2) Have you been thinking about how you might kill yourself?Yes 3) Have you had some intention of acting on your thoughts?No 4) Lifetime psychiatric hospitalization?No 5) Has drinking or substance abuse ever been a problem for you?No 6) Current irritability, agitation, or aggression?No PSS-3 Secondary Screen Scoring: Mild Notes: Mild(0-2) No current attempt and no plan/intent Moderate(3-4) No current attempt, Plan OR intent but not both Severe(5-6) Current Attempt with Plan AND intent [facility]-based Safety Assessment: Risk Factors Stressors: see HPI Attempts/Self-injury: YesDescription:Oct 2021, tried to cut wrist Impulsivity:No Drug/Alcohol History:No Trauma History:No Access to firearms:No HI/Violence/Property destruction:No Legal: No Family Psych History:No Family History of suicide:No Protective Factors: Can handle stress well?Yes Latter Day?No External: Social supports/ Therapeutic relationships: YesDescription: Relationship history: Living situation: lives alone Employment: No Education: college grad Responsibility to family/children/work: YesDescription: Future orientation:YesDescription: Health History: Medical History: Medications & Freq: Ativan 0.5 mg TID, Amitriptyline 100mg HS Allergies: minocycline, sulfa Mental Status Exam: Appearance and Attire:Good eye contact Psychomotor agitation:No abnormality Attitude and behavior:Cooperative Speech:No abnormality, Mood:Anxious Affect:Constricted Thought process:Coherent Thought content:No abnormality Perception:no AVH Intel:Average Abstract:Appropriate Language:No abnormality Orientation:Oriented x 4 Sense:Normal Knowledge:Appropriate for education and socioeconomic status Memory:Intact Insight:Appropriate Judgement:Mild impairment Gait:No abnormality Impression/Risk Assessment: Current Suicide Risk Elevated?No Current Violence Risk Elevated?No Issues with ability to care for self?No Summary: The patient is a 66-year-old female who presented to the ER complaining of depressed mood and vague SI. The patient recanted after discussing medication strategies with the psychiatrist. The patient was accompanied by her mother who has no immediate safety concerns. Outpatient care recommended. Diagnosis: F33.1 Major depressive disorder, recurrent, moderate CPT Codes: 96946 - Psychiatric Diagnostic Evaluation with Medical Services Treatment Plan: Level of Care: outpt care Psychiatric Clearance: Yes Observation level 1:1 needed?: No Pharmacological: Continue Amitriptyline 100mg HS. Start Ativan 0.5 mg PO TID and start Ativan 1 mg PO daily prn anxiety Patient psychotic?No Therapy: Supportive Follow up needed while in the hospital?: No Discussed plan with onsite retail team member: Yes Dr. Dennis Madrigal MD [facility] List names and roles of persons who participated in consult: Pascual Madrigal MD. [facility]
[2022-06-06 03:34] VITALS: BP 120/72
== END 2022-06-06 03:50 | disposition home or self-care (01) ==
LOC: ED 18:00
DX: F33.1 Major depressive disorder, recurrent, moderate (principal); R45.851 Suicidal ideations; Z20.822 Contact with and (suspected) exposure to COVID-19
CPT/HCPCS: 36415; 80053; 80306; 80307; 81003; 83690; 84443; 85025; 87635; 99283; 99284; A9270; G0425; G0480; Q3014; 80320; 80329; 81001; 87086

== ENCOUNTER 2022-08-11 13:56 | Outpatient (CLI) | payer MEDICARE | END 2022-08-11 13:57 | disposition home or self-care (01) | LOC: LAB.N 13:56 | PROVIDERS: ATTEND Physician Assistant | DX: R30.0 Dysuria (principal) | CPT/HCPCS: 87086 ==

== ENCOUNTER 2022-09-17 08:00 | Outpatient (CLI) | payer MEDICARE | END 2022-09-17 23:59 | disposition home or self-care (01) | LOC: LAB.WCP 08:00 | PROVIDERS: ATTEND Physician Assistant | DX: R13.10 Dysphagia, unspecified (principal) | CPT/HCPCS: 87070 ==

== ENCOUNTER 2022-12-25 09:02 | Outpatient (CLI) | payer MEDICARE ==
[2022-12-25 09:17] LABS: BASOPHILS % (AUTO) 0.8 %; EOSINOPHILS # (AUTO) 0.2 10^3/uL (0.0-0.7); HCT - HEMATOCRIT 38.8 % (37.0-47.0); HGB - HEMOGLOBIN 12.4 g/dL (12.0-16.0); LYMPHOCYTES # (AUTO) 1.6 10^3/uL (1.5-3.5); LYMPHOCYTES % (AUTO) 32.7 %; MEAN CORPUSCULAR HEMOGLOBIN 29.7 pg (27.0-31.0); MEAN CORPUSCULAR VOLUME 92.8 fL (81.0-99.0); MEAN PLATELET VOLUME 9.3 fL (7.9-10.8); MONOCYTES # (AUTO) 0.3 10^3/uL (0.0-1.0); MONOCYTES % (AUTO) 6.5 %; NEUTROPHILS # (AUTO) 2.8 10^3/uL (1.5-6.6); PLT - PLATELET COUNT 220 10^3/uL (130-450); RED BLOOD COUNT 4.18 10^6/uL (4.20-5.40); RED CELL DISTRIBUTION WIDTH 13.4 % (12.0-15.0); WHITE BLOOD COUNT 4.9 x10^3/uL (4.8-10.8)
[2022-12-25 09:55] LABS: ALBUMIN 3.8 g/dL (3.2-5.5); ALBUMIN/GLOBULIN RATIO 1.4 (1.0-2.2); ALKALINE PHOSPHATASE 50 IU/L (42-121); ALT ALANINE AMINOTRANSFERASE 39 IU/L (10-60); AST ASPARTATE AMINOTRANSFERASE 34 IU/L (10-42); BILIRUBIN,TOTAL 0.9 mg/dL (0.2-1.0); BUN - BLOOD UREA NITROGEN 16 mg/dL (6-20); CALCIUM 9.2 mg/dL (8.5-10.3); CARBON DIOXIDE - CO2 27 mmol/L (21-32); CHLORIDE 103 mmol/L (101-111); CHOL/HDL RATIO 2.9 (<4.4); CHOLESTEROL 247 mg/dL; GFR - MDRD 55 (>89); GLUCOSE 90 mg/dL (70-100); HDL CHOLESTEROL 86 mg/dL; LDL CHOLESTEROL,CALCULATED 145 mg/dL; LDL/HDL RATIO 1.7 (<4.4); POTASSIUM 4.1 mmol/L (3.5-5.0); SODIUM 138 mmol/L (135-145); TOTAL PROTEIN 6.5 g/dL (6.7-8.2); TRIGLYCERIDES 80 mg/dL; VLDL CHOLESTEROL 16 mg/dL
[2022-12-27 03:09] LABS: HCV AB Non Reactive (Non Reactive)
== END 2022-12-25 09:03 | disposition home or self-care (01) ==
LOC: LAB 09:02
PROVIDERS: ATTEND Family Medicine
DX: Z00.00 Encounter for general adult medical examination without abnormal findings (principal); Z11.59 Encounter for screening for other viral diseases; Z13.220 Encounter for screening for lipoid disorders
CPT/HCPCS: 36415; 80053; 80061; 83721; 85025; 86803

== ENCOUNTER 2023-03-22 14:09 | Emergency (ER) | payer MEDICARE ==
[2023-03-22] MEDS ORDERED: LIDOCAINE 1% 2 ML VIAL TD STA (14:19)
[2023-03-22 14:26] VITALS: BP 134/85
[2023-03-22] MEDS ORDERED: TETANUS/DIPHTHERIA/PERTUSSIS 0.5 ML SYRINGE IM ONE (14:54)
--- NOTE | 2023-03-22 14:56 | ED Physician Documentation ---
PD HPI UPPER EXT INJURY - Stated complaint Stated Complaint: LT THUMB CUT - Chief complaint Chief Complaint: Ext Problem - History obtained from History obtained from: Patient, Friend - History of Present Illness Location: Left, Hand Type of injury: Laceration Where injury occurred: Home Timing - onset: Today Timing - duration: Minutes Timing - details: Abrupt onset, Still present Improved by: Rest Worsened by: Moving, Palpating Associated symptoms: No: Weakness, Numbness, Tingling, Swelling, Discolored Contributing factors: No: Anticoagulated, Prior ortho surgery, Work related Similar symptoms before: Diagnosis (laceration) Recently seen: Not recently seen - Additonal information Additional information: 67-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 She is able to control bleeding with direct pressure and comes in for suturing. 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 : None HEENT: Glaucoma Psych: None Musculoskeletal: Osteoarthritis, Other Derm: Other - Past Surgical History Past Surgical History: Yes General: EGD HEENT: Detached retina repair - Present Medications Home Medications: Ambulatory Orders Medication Instructions Recorded Confirmed Gabapentin [Neurontin] 100 mg PO TID PRN 10/31/21 06/05/22 Zolpidem [Ambien] 10 mg PO HS PRN 10/31/21 06/05/22 hydrOXYzine HCL [Hydroxyzine HCl] 50 mg PO Q8H PRN 10/31/21 06/05/22 Acyclovir 3 tab PO DAILY PRN 03/19/22 06/05/22 Amitriptyline [Elavil] 4 tab PO DAILY 03/19/22 06/05/22 Latanoprost/Pf [Latanoprost 0.005% 2 drops TOP DAILY 03/19/22 06/05/22 Eye Drop] Loratadine [Claritin] 1 tab PO DAILY 03/19/22 06/05/22 Mirtazapine 0.5 tab PO DAILY 03/19/22 06/05/22 Sennosides/Docusate Sodium 2 tab PO DAILY PRN 03/19/22 06/05/22 [Senna-Docusate Sodium Tablet] LORazepam [Ativan] 1 mg PO DAILY #12 tablet 06/06/22 - Allergies Allergies/Adverse Reactions: Allergies Allergy/AdvReac Type Severity Reaction Status Date / Time minocycline Allergy Unknown Verified 03/19/22 11:16 Sulfa (Sulfonamide Allergy Unknown Verified 03/19/22 11:16 Antibiotics) - Social History Does the pt smoke?: No Smoking Status: Never smoker Does the pt drink ETOH?: No Does the pt have substance abuse?: No - Immunizations Immunizations are current?: Yes - POLST Patient has POLST: No POLST Status: DNR PD ED PE NORMAL - Vitals Vital signs reviewed: Yes (hypertensive) - General General: Alert and oriented X 3, No acute distress, Well developed/nourished - HEENT HEENT: Atraumatic, PERRL, EOMI - Respiratory Respiratory: No respiratory distress - Derm Derm: Normal color, Warm and dry, No rash - Extremities Extremities: No deformity, No edema, Other (3cm laceration to the dorsum of the left thumb at the MCP joint. 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, No motor deficit, No sensory deficit, Normal speech Eye Opening: Spontaneous Motor: Obeys Commands Verbal: Oriented GCS Score: 15 - Psych Psych: Normal mood, Normal affect Results - Vitals Vitals: Vital Signs - 24 hr 03/22/23 14:21 Temperature 36.8 C Heart Rate 90 Respiratory 18 Rate Blood Pressure 134/85 H O2 Saturation 98 Oxygen O2 Source Room air Procedures - Laceration (location) right hand Length in cm: 3 Wound type: Curved, Flap, Clean Neurovascular status: Sensory intact, Motor intact Anesthesia: Lidocaine 1% Wound preparation: Hibiclens, Irrigated copiously NS, Wound explored, To the base Skin layer closure: Nylon, Interrupted, Size #-0 - enter number (5-0), Sutures - enter # (5) Other: Patient tolerated well, No complications, Neurovascular intact, Dressing applied, Tetanus booster given PD Medical Decision Making - ED course Complexity details: considered differential, d/w patient, d/w family ED course: 67-year-old female with a simple laceration of the dorsum of the left thumb is sutured she is dispensed the instruments for suture removal and taught the removal of sutures. Departure - Departure Disposition: 01 Home, Self Care Clinical Impression: Laceration of left hand Qualifiers: Encounter type: initial encounter Foreign body presence: without foreign body Qualified Code(s): S61.412A - Laceration without foreign body of left hand, initial encounter Condition: Stable Instructions: ED Laceration Hand Follow-Up: SRIRAM CHU DO [Primary Care Provider] - Comments: Jass, we are expecting this wound to heal up without any problems and you will need to take the sutures out in about 10 days. If you develop any signs of infection return to the emergency department. This would not be expected.
== END 2023-03-22 15:24 | disposition home or self-care (01) ==
LOC: ED 14:09
DX: S61.412A Laceration without foreign body of left hand, initial encounter (principal); W26.0XXA Contact with knife, initial encounter; Z79.899 Other long term (current) drug therapy; Z23 Encounter for immunization
CPT/HCPCS: 12002; 90471; 99283

== ENCOUNTER 2023-06-01 10:42 | Outpatient (CLI) | payer MEDICARE ==
--- NOTE | 2023-06-01 13:33 | XRAY Report ---
PROCEDURE: Shoulder 3 View RT INDICATIONS: RIGHT SHOULDER PX TECHNIQUE: 3 views of the shoulder were acquired. COMPARISON: None. FINDINGS: Bones: No fractures or dislocations. No suspicious bony lesions. Visualized ribs appear intact. Mi ld degenerative changes of the common clavicular joint. Moderate osteoarthritic changes of the glenoh umeral joint with joint space narrowing and marginal spurring involving the humeral head and glenoid. Soft tissues: No suspicious soft tissue calcifications. IMPRESSION: Moderate degenerative changes of the glenoid joint. Reviewed by: Sulaiman Flores MD on 06/01/2023 1:06 PM PDT Approved by: Sulaiman Flores MD on 06/01/2023 1:06 PM PDT Station ID: [id number]
== END 2023-06-01 10:43 | disposition home or self-care (01) ==
LOC: DI 10:42
PROVIDERS: ATTEND Family Medicine
DX: M19.011 Primary osteoarthritis, right shoulder (principal)

== ENCOUNTER 2023-06-23 07:59 | Outpatient (CLI) | payer MEDICARE ==
--- NOTE | 2023-06-24 13:58 | MRI Report ---
PROCEDURE: SHOULDER WO - RT INDICATIONS: CHRONIC RIGHT SHOULDER PAIN TECHNIQUE: Noncontrast oblique coronal T2 fast spin echo with fat saturation, oblique sagittal T1 spin echo and T2 fast spin echo with fat saturation, axial T1 spin echo and T2 fast spin echo with fat saturation t hrough the shoulder. COMPARISON: X-ray right shoulder, 06/01/2023. FINDINGS: Image quality: Excellent. Rotator cuff: There is severe supraspinatus, infraspinatus and subscapularis tendinosis. No high-gra de tendon tear. No rotator cuff muscle atrophy on sagittal images. Bones and bursae: No bone marrow contusions or fractures. There is moderate glenohumeral joint degen eration and mild acromioclavicular joint degeneration. The acromion demonstrates conventional anatom y, without an os acromiale. Small glenohumeral joint effusion.. Capsule and soft tissues: There is diffuse degenerative tear of the glenoid labrum. In the absence o f intra-articular contrast, the labrum and glenohumeral ligaments appear intact. There is moderate te ndinosis of the intra-articular portion of the long head of the biceps tendon which demonstrates demo nstrates normal location. The rotator interval appears normal, without fibrosis. The coracohumeral ligament is normal in thickness. IMPRESSION: 1. Severe supraspinous, infraspinatus and subscapularis tendinosis. No high-grade tendon tear. No rot ator cuff muscle atrophy. 2. Moderate tendinosis of the long head of the biceps tendon. 3. [id number] glenohumeral joint degeneration and mild acromioclavicular joint degeneration. 4. Diffuse degenerative labral tear. 5. A small glenohumeral joint effusion. Reviewed by: Ruslan Navarro MD on 06/24/2023 1:57 PM PDT Approved by: Ruslan Navarro MD on 06/24/2023 1:57 PM PDT Station ID: [id number]
== END 2023-06-23 08:00 | disposition home or self-care (01) ==
LOC: DI 07:59
PROVIDERS: ATTEND Family Medicine
DX: M67.813 Other specified disorders of tendon, right shoulder (principal); M19.011 Primary osteoarthritis, right shoulder; S43.401A Unspecified sprain of right shoulder joint, initial encounter; M25.411 Effusion, right shoulder

== ENCOUNTER 2023-08-26 13:29 | Outpatient (CLI) | payer MEDICARE ==
--- NOTE | 2023-08-31 11:28 | Mammography Report ---
BILATERAL DIGITAL SCREENING MAMMOGRAM 3D/2D: 08/26/2023 CLINICAL: Routine screening. Comparison is made to exams dated: 10/22/2018 mammogram, 09/22/2016 mammogram, and 08/04/2014 mammogr am - [facility]. Both breasts are heterogeneously dense, which may obscure small masses (category c / 51-75% glandular tissue). No significant masses, calcifications, or other findings are seen in either breast. IMPRESSION: NEGATIVE There is no mammographic evidence of malignancy. A 1 year screening mammogram is recommended. Based on the Tyrer Cuzick model (a risk assessment model) the patients lifetime risk is 10.4% and he r 10 year risk is 5.5%. According to the ACR, ACS, and NCCN guidelines, an annual breast MRI exam denia ng with mammogram is recommended if the patients lifetime risk is 20% or greater. This exam was interpreted at Station ID: [id number]. NOTE: For mammograms, a report in lay terms will be sent to the patient. Approximately 15% of breast malignancies will not be visualized mammographically. In the management of a palpable breast mass, a negative mammogram must not discourage biopsy of a clinically suspicious lesion. Electronically Signed By: Olga [email or web address]:08/30/2023 18:00:24 letter sent: No_Letter ACR BI-RADS Category 1: Negative 3341F PARENCHYMAL PATTERN: (D) - The breast(s) demonstrate(s) heterogeneously dense fibroglandular yimi flores. BI-RADS CATEGORY: (1) - 1 Mammogram [id number] 1 year screening LATERALITY: (B)
== END 2023-08-26 13:30 | disposition home or self-care (01) ==
LOC: DI 13:29
DX: Z12.31 Encounter for screening mammogram for malignant neoplasm of breast (principal); R92.333 Mammographic heterogeneous density, bilateral breasts